=== PATIENT | male | born 1935 | race Caucasian/White ===

== ENCOUNTER 2018-05-15 19:17 | Emergency (ER) | payer MEDICARE, OTHER, SELFPAY ==
[2018-05-15 19:18] VITALS: BP 131/67; PULSE 124; RESP 16; TEMP 36.7; O2SAT 94; BMI 24.3
--- NOTE | 2018-05-15 19:37 | CT_ITS ---
STUDY: CT BRAIN WITHOUT CONTRAST REASON FOR EXAM: Male, 83 years old. Fell and hit left side of the head. No loss of consciousness. Laceration. RADIATION DOSAGE (If Supplied By Facility): CTDIvol = ( 44.99 ) mGy, DLP = ( 829.85 ) mGycm TECHNIQUE: Transaxial CT imaging of the brain was performed without administration of intravenous contrast material. Individualized dose optimization techniques were used for this CT. COMPARISON: None. FINDINGS: Small laceration in the subcutaneous tissues in the left parietal region. There is a small underlying hematoma. Normal calvarium. Normal size ventricles and extra-axial spaces for the patient's age. Normal white matter tracts of the cerebral hemispheres. Normal basal ganglia and thalami. Normal brainstem. Normal cerebellum. There is no intracranial hemorrhage. There are no findings of an acute ischemic infarction. There is mucoperiosteal reaction within the sphenoid and ethmoid sinuses. CT/Brain/Head without Contrast IMPRESSION: 1. No evidence of acute intracranial or calvarial abnormality. 2. Soft tissue hematoma with overlying laceration in the left parietal region. 3. Sinusitis. Electronically Signed: Mustapha Ponce DO at 20:08 EST Tel [phone], Service support ,
--- NOTE | 2018-05-15 19:42 | ED.VISSUMM ---
- ER Visit Summary Date of Service: 05/15/18 Chief Complaint: Head injury History of Present Illness: The patient is a 83 M presents to the emergency department with scalp laceration. The patient states he was drinking today with friends. He was at home. He lost his balance and fell. He struck his head against his grandfather clock. He did not lose consciousness but did suffer a laceration. The patient does not take anticoagulants. He denies headache or visual change. He denies any other systemic symptoms. He states he was able to get the bleeding to stop, but was worried that he was going to need stitches. Physical Examination: Vital signs reviewed General: Well-nourished, well-developed Head: Normocephalic, 5 cm full-thickness laceration on the left frontal scalp. No step-off. Calvarium intact. Eyes: Pupils equal and reactive, extraocular muscles intact Neck, supple, no lymphadenopathy Heart: Regular rate and rhythm Respiratory: No distress, clear bilaterally Abdomen: Soft, nontender, nondistended, no peritoneal signs Back: Nontender Extremities: Nontender, no edema, no cords Skin: Normal color no rash Neuro: Alert and oriented, no focal or lateralizing deficits Test Results: [] Emergency Department Course and Treatment: The patient presents with laceration. He underwent head CT which was unremarkable. The patient is awake and alert. He is a GCS of 15. He has no evidence of intracranial abnormality. His wound was anesthetized and irrigated. It was closed with 6 domingo. He was counseled on wound care and reasons to return. The patient be discharged home. Treatment Plan: [] Disposition: Discharge Impression: 1. 5 cm scalp laceration with repair This note was generated with [employer] dictation software. It may contain incorrect words, spelling, and punctuation that were not noted in review of the chart prior to signing ED Disposition - Plan for ED Patient: Chief Complaint: Head Injury Instructions: ED Laceration Scalp Stitch Or Stap Referrals: Oneil Foote MD [Primary Care Provider] - 10 Day for suture removal
[2018-05-15] MEDS: Diphth,Pertuss(Acell),Tet Vac 0.5 ML Vial IM (20:16)
[2018-05-15] MEDS: Lidocaine/Epi/Tetracaine 50 ML 1 APPLIC TOPICAL (20:16)
[2018-05-15 20:57] VITALS: BP 147/89; PULSE 108; RESP 16; O2SAT 96
--- NOTE | 2018-05-15 21:00 | ED.RN ---
REVIEWED D/C INSTRUCTIONS, FOLLOW UP CARE, AND S/S THAT WOULD WARRANT A RETURN TO THE ED WITH PT. PT SKIN P/W/D, RESP EVEN AND UNLABORED, PT A&O X 3, NO DISTRESS NOTED. PT AMBULATED OUT OF ED, GAIT STEADY.
== END 2018-05-15 21:01 | disposition home or self-care (01) ==
LOC: ED 20:00
PROVIDERS: Emergency Provider Emergency Medicine; Family Provider Family Medicine; PCP Family Medicine
DX: S01.01XA Laceration without foreign body of scalp, initial encounter (principal); R40.2410 Glasgow coma scale score 13-15, unspecified time; W19.XXXA Unspecified fall, initial encounter; Y93.9 Activity, unspecified; Y92.9 Unspecified place or not applicable; I10 Essential (primary) hypertension; E78.00 Pure hypercholesterolemia, unspecified; Z79.899 Other long term (current) drug therapy
CPT/HCPCS: 12002; 70450; 90471; 90715; 99284

== ENCOUNTER 2018-05-16 09:04 | Emergency (ER) | payer MEDICARE, OTHER, SELFPAY ==
[2018-05-15 19:18] VITALS: BMI 24.3
[2018-05-16 09:05] VITALS: BP 137/79; PULSE 117; RESP 16; TEMP 36.7; O2SAT 96; BMI 24.3
--- NOTE | 2018-05-16 09:11 | RAD_ITS ---
STUDY: X-RAY - LEFT ELBOW REASON FOR EXAM: Male, 83 years old. Fall last night, left elbow pain TECHNIQUE: 3 view(s) of the elbow. COMPARISON: None. FINDINGS: There is a transverse fracture of the distal epicondylar humerus with approximately 16 mm of displacement. There is anterior apical angulation. Normal radiocapitellar and ulnotrochlear articulations. Diffuse soft tissue swelling with joint effusion noted. RAD/Elbow min 3 Views IMPRESSION: Moderately displaced distal humeral fracture. Electronically Signed: Chan Abdalla MD at 9:50 EST , Service support ,
[2018-05-16] MEDS: Ibuprofen 600 MG Tablet PO (09:21)
--- NOTE | 2018-05-16 09:49 | NURSING ---
DR EWELINA TIDWELL
--- NOTE | 2018-05-16 10:03 | ED.DCSUM_ITS ---
- ER Visit Summary Date of Service: 05/16/18 Chief Complaint: Elbow pain History of Present Illness: The patient is a 83 M with left elbow pain. The patient had a mechanical fall yesterday and hit his head. He was seen in the ED and had a CT of his brain as well as sutures placed. He woke up this morning with increasing left elbow pain and swelling. Worse with touch and movement. Nothing makes it better. No other associated symptoms or complaints. He does not take blood thinners. Physical Examination: Afebrile and vital signs unremarkable except for a heart rate of 117. Head and neck showed no new trauma. Heart regular. Lungs clear. Left upper extremity is remarkable for pain tenderness and swelling to his left elbow diffusely. He is neurovascular intact distally. Skin is intact. Right upper extremity and lower extremities are atraumatic. Patient is alert and oriented. Test Results: X-rays show a distal humerus fracture with moderate displacement. Emergency Department Course and Treatment: Patient was treated with a posterior long-arm splint, Ortho-Glass. He was placed in a sling. I did check his prescription report and he is not on any opioids. He was given a short course of Percocet. Risks of Percocet such as sedation and fall risk were discussed. Do not drink alcohol on Percocet. Splint precautions were discussed. Keep it clean and dry. Return for pain and numbness. Return for any other complications. I did speak with Dr. Hancock and the patient will follow-up as an outpatient. Treatment Plan: As above Disposition: Discharge Impression: 1. Left distal humerus fracture closed This note was generated with [employer] dictation software. It may contain incorrect words, spelling, and punctuation that were not noted in review of the chart prior to signing ED Disposition - Plan for ED Patient: Chief Complaint: Upper Extremity Injury Referrals: Oneil Foote MD [Primary Care Provider] -
--- NOTE | 2018-05-16 10:03 | ED.DEP ---
ED Disposition - Plan for ED Patient: Chief Complaint: Upper Extremity Injury Instructions: ED Fx Elbow Prescriptions: Oxycodone HCl/Acetaminophen [Percocet 5/325] 1 tab PO Q6H PRN PRN 3 Days #12 tab PRN Reason: Pain Referrals: Jeffery Hancock DO [STAFF PHYSICIAN] -
[2018-05-16 10:53] VITALS: BP 114/83; PULSE 83; RESP 14; O2SAT 95
== END 2018-05-16 10:54 | disposition home or self-care (01) ==
PROVIDERS: Emergency Provider Emergency Medicine; Family Provider Family Medicine; PCP Family Medicine
DX: S42.402A Unspecified fracture of lower end of left humerus, initial encounter for closed fracture (principal); W19.XXXA Unspecified fall, initial encounter; Y93.9 Activity, unspecified; Y92.9 Unspecified place or not applicable; E78.00 Pure hypercholesterolemia, unspecified; Z79.899 Other long term (current) drug therapy
CPT/HCPCS: 29105; 73080; 99283

== ENCOUNTER → 2018-05-22 07:12 | Outpatient (CLI) | payer MEDICARE, OTHER, SELFPAY ==
[2018-05-16 09:05] VITALS: BMI 24.3
--- NOTE | 2018-05-22 07:19 | CT_ITS ---
STUDY: CT LEFT ELBOW WITHOUT CONTRAST REASON FOR EXAM: Male, 83 years old. Distal humeral fracture following a fall. RADIATION DOSAGE (If Supplied By Facility): CTDIvol = ( 24.58 ) mGy, DLP = ( 800.30 ) mGycm TECHNIQUE: Transaxial CT imaging of the elbow was performed. Sagittal and coronal images were reconstructed. Individualized dose optimization techniques were used for this CT. COMPARISON: Comparison is made with prior radiograph dated May 16, 2018. FINDINGS: There is evidence of a comminuted transverse supracondylar fracture of the distal humerus with loss of the normal angle. There is evidence of posterior displacement of the distal fracture fragment. Normal radiocapitellar and ulnotrochlear articulations. Soft tissue swelling. CT/Extremity Upper without Contra IMPRESSION: Comminuted transverse fracture of the distal supracondylar aspect of the humerus with posterior displacement. Soft tissue swelling. Electronically Signed: Chuck Powers MD at 9:25 EST Tel [phone], Service support ,
== END ==
PROVIDERS: Family Provider Family Medicine; PCP Family Medicine; Referring Provider Physician Assistant; Visit Provider Physician Assistant
DX: S42.492A Other displaced fracture of lower end of left humerus, initial encounter for closed fracture (principal)
CPT/HCPCS: 73200

== ENCOUNTER 2021-01-18 03:44 | Emergency (ER) | payer MEDICARE, OTHER, SELFPAY ==
[2021-01-18 03:44] VITALS: BP 176/82; PULSE 88; RESP 16; TEMP 36.8; O2SAT 96; BMI 25.2
--- NOTE | 2021-01-18 03:55 | CT_ITS ---
STUDY: CT CHEST, ABDOMEN T PELVIS WITH CONTRAST REASON FOR EXAM: Male, 85 years old. trauma RADIATION DOSAGE (If Supplied By Facility): CTDIvol = ( 16.997 ) mGy, DLP = ( 1734.23 ) mGycm TECHNIQUE: Transaxial imaging was performed following intravenous administration of IV 100mL [id number]-370. Individualized dose optimization techniques were used for this CT. COMPARISON: No relevant priors. FINDINGS: CHEST The lungs are normal. There is no demonstrated pleural abnormality. Normal heart and pericardium. Normal mediastinum. Normal hilar regions. Normal unenhanced pulmonary arteries. Normal aorta arch and descending thoracic aorta. There is nondisplaced fracture of the left ninth rib. There is no demonstrated abnormality of the visualized upper abdomen. ABDOMEN There is a hiatal hernia measures 7 cm. The visualized portions of the heart are within normal limits. Normal liver. Normal gallbladder and extrahepatic biliary system. Normal spleen. Normal pancreas. Normal bilateral adrenal glands. Bilateral renal cysts, the largest measures 4 cm is in the left kidney. There are bilateral kidney stones the largest measures 8 mm without hydronephrosis. Normal visualized stomach. Normal small intestine. Normal colon. The appendix is visualized and appears normal. Normal abdominal aorta. Normal inferior vena cava. Normal retroperitoneum. Normal abdominal wall. Normal osseous structures. PELVIS Multiple stones in the urinary bladder, the largest measures 6 mm. Normal visualized small intestine. Normal visualized colon. There is no pelvic fluid. There is no pelvic lymphadenopathy or mass lesion. Normal visualized pelvic arteries. Normal abdominal wall. Normal osseous structures. CT/CT Chest, Abd, Pel w/Contrast IMPRESSION: There is nondisplaced fracture of the left ninth rib. There is a hiatal hernia measures 7 cm. Bilateral renal cysts, the largest measures 4 cm is in the left kidney. There are bilateral kidney stones the largest measures 8 mm without hydronephrosis. Multiple stones in the urinary bladder, the largest measures 6 mm. There is no acute traumatic injury in the abdomen or pelvis. Electronically Signed: Emily Pretty MD at 6:07 EDT Tel , Service support ,
--- NOTE | 2021-01-18 03:58 | EDS_ITS ---
HPI History of Present Illness Chief Complaint: Back Informant: patient and family Narrative Narrative: Patient presents by EMS from home for evaluation of left back injury occurring Tuesday. Patient was cutting down a tree when he fell hitting his back on the stump. He states he grazed his head on the tree with an abrasion. States pain in the back is increased worse with movement therefore EMS was contacted. He denies any neck pain. No chest pain. Denies any radicular pain down the legs. Denies history of kidney injury. History of BPH along with hyperlipidemia. Denies any anticoagulation medications. Prior similar symptoms: No PFSH PFSH Medical History Hyperlipidemia Prostate disorder Rotator cuff arthropathy Home Medications alfuzosin [Uroxatral] 10 mg PO DAILY 05/15/18 [History Last Taken Unknown] multivitamin 1 ea PO DAILY 05/15/18 [History Last Taken Unknown] rosuvastatin 10 mg PO DAILY 05/15/18 [History Last Taken Unknown] docusate sodium [Colace] 100 mg PO DAILY #30 cap 01/18/21 [Rx Last Taken Unknown] oxycodone-acetaminophen [Percocet] 1 tab PO Q6H PRN 3 Days #12 tab 01/18/21 [Rx Last Taken Unknown] Allergy/AdvReac Type Severity Reaction Status Date / Time No Known Allergies Allergy Verified 01/18/21 03:47 Social History Smoking Status: Never smoker ROS ROS ED Constitutional Constitutional ED: Denies chills, fever(s) or sweats Eyes Eyes: Denies change in vision ENT ENT ED: Denies dysphagia or sore throat Cardiovascular Cardiovascular: Denies chest pain, leg edema, palpitations or racing heartbeat Respiratory/Chest Respiratory/Chest: Denies cough, dyspnea or dyspnea on exertion Gastrointestinal Gastrointestinal: Denies abdominal pain, diarrhea, nausea or vomiting Genitourinary Genitourinary ED: Denies dysuria, hematuria or urinary frequency Musculoskeletal Musculoskeletal: Reports back pain; Denies extremity pain or neck pain Integumentary Denies rash or wounds Neurologic Neurologic: Denies headache(s), paresthesias or weakness EXAM Physical Exam Const Vital Signs: 01/18/21 03:44 01/18/21 04:15 Temperature 98.2 F Temperature Source Oral Pulse Rate 88 Respiratory Rate 16 Blood Pressure 176/82 H 155/85 H Blood Pressure Mean 113 108 Pulse Ox 96 93 Oxygen Delivery Method Room Air Positive well nourished and well developed Constitutional Narrative: GCS 15. General Appearance ED: well developed and NAD HEENT Reports moist mucous membranes HEENT Narrative: Abrasion noted mid forehead, no active bleeding. No hemotympanum. normocephalic Eyes PERRL, EOMs intact bilaterally and conjunctivae normal General Eye ED: Yes normal appearance of both eyes Neck no lymphadenopathy and supple General: Negative for tenderness Chest Wall Chest: Negative for tenderness Resp normal respiratory effort and normal air movement Effort and Inspection: symmetric chest movement; Negative for respiratory distress Cardio regular rate, regular rhythm and no murmurs Peripheral Pulses: pulses 2+ throughout GI normal to inspection, nondistended, normoactive bowel sounds and non-tender Palpation: Negative for guarding or rebound tenderness present Back/Spine no CVA tenderness and no thoracic nor lumbar tenderness Back/Spine Narrative: No midline tenderness, there is vertigo ecchymosis along the left lower lateral rib bricklayer tender to palpation. No crepitus. Extremity normal to inspection General Extremety ED: Negative for edema or tenderness General Extremity: Negative for edema Neuro oriented x3 and no sensory deficits noted Sensorium / Orientation: awake and alert Skin no rashes or lesions noted and no wounds MDM MDM MDM Narrative Medical decision making narrative: Patient traumatic injury 2 days ago there is contusion along the ribs left side stenting to the flank area. Symmetric breath sounds. Trauma scans obtained to rule out any intrathoracic or retroperitoneal injuries from the fall. He was treated with fentanyl for pain control he is able to sit himself up. Symptoms were improving. CT scan results noted nondisplaced fracture left ninth rib, bilateral renal cysts and hiatal hernia. Patient symptoms controlled. Set a spirometer for home use. Short prescription for pain medicines with stool softeners sent to pharmacy. Patient will follow with PCP. All questions answered. Lab Data Attestation: I reviewed the patient's lab results. Labs: Laboratory Results - last 24 hr 01/18/21 01/18/21 04:10 04:10 WBC 5.6 RBC 4.65 Hgb 15.0 Hct 45.8 MCV 98.5 H MCH 32.3 H MCHC 32.8 RDW Std Deviation 47.2 H RDW Coeff of Tia 13.0 Plt Count 136 L MPV 9.6 Immature Gran % (Auto) 0.400 Neut % (Auto) 63.3 Lymph % (Auto) 19.9 [place] % (Auto) 12.3 H Eos % (Auto) 3.6 Baso % (Auto) 0.5 Absolute Neuts (auto) 3.6 Absolute Lymphs (auto) 1.12 Nucleated RBC % 0 Sodium 138 Potassium 4.2 Chloride 106 Carbon Dioxide 28.0 Anion Gap 4 L BUN 18 Creatinine 1.03 Estim Creat Clear Calc 63.18 Est GFR (MDRD) Af Amer 89 Est GFR (MDRD) Non-Af 73 BUN/Creatinine Ratio 17.5 Glucose 120 H Calcium 8.9 Radiography Diagnostic Testing: Radiology Impression Chest/Abdomen/Pelvis CT 01/18/21 03:55 IMPRESSION: There is nondisplaced fracture of the left ninth rib. There is a hiatal hernia measures 7 cm. Bilateral renal cysts, the largest measures 4 cm is in the left kidney. There are bilateral kidney stones the largest measures 8 mm without hydronephrosis. Multiple stones in the urinary bladder, the largest measures 6 mm. There is no acute traumatic injury in the abdomen or pelvis. Electronically Signed: Emily Pretty MD at 6:07 EDT Tel , Service support , Discharge Plan Triage Chief Complaint: Back ED Provider: Andrew Weller Dx/Rx/DC Orders Clinical Impression: Left rib fracture, Fall, Hernia, hiatal, Bilateral renal cysts Instructions: ED Rib Fracture, ED Hiatal Hernia Prescriptions: New oxycodone-acetaminophen [Percocet] 5-325 mg tablet 1 tab PO Q6H PRN (Reason: pain) 3 Days Qty: 12 RF: 0 docusate sodium [Colace] 100 mg capsule 100 mg PO DAILY Qty: 30 RF: 0 No Action multivitamin 1 EACH tablet 1 ea PO DAILY RF: 0 rosuvastatin 10 MG tablet 10 mg PO DAILY RF: 0 alfuzosin [Uroxatral] 10 MG tablet extended release 24 hr 10 mg PO DAILY RF: 0 Primary Care Provider: Oneil Foote Referrals: Oneil Foote MD [Primary Care Provider] - 3-5 Days Activity Restrictions/Additional Instructions: Nondisplaced left ninth rib fracture. Use incentive spirometer every 2 hours while awake. Pain medicines as needed. Stool softeners while taking pain medicines. Incidental findings on CT of a hiatal hernia of 7 cm, bilateral renal cysts, right nephrolithiasis. Disposition Disposition: Home, Self Care
[2021-01-18] MEDS: fentaNYL 100 MCG/2 ML Ampul 25 MCG IV (04:07)
[2021-01-18 04:15] VITALS: BP 155/85; O2SAT 93
[2021-01-18 04:21] LABS: Absolute Lymphocyte Count 1.12 X10^3/uL (0.83-4.51); Absolute Neutrophil Count 3.6 X10^3/uL (2.0-7.7); Basophil# 0.03 X10^3/uL; Basophil% 0.5 % (0-1); Eosinophils% 3.6 % (0-5); Hematocrit 45.8 % (40-54); Lymphocyte # 1.12 X10^3/ul (0.83-4.51); Lymphocyte % 19.9 % (19-41); Mean Corp Hgb Conc 32.8 g/dL (32-36); Mean Corpuscular Hgb 32.3 pg (27.0-32.0); Mean Corpuscular Volume 98.5 fL (80-94); Mean Platelet Vol. 9.6 fl (6.2-12.0); Monocyte# 0.69 X10^3/uL; Monocyte% 12.3 % (0-10); NRBC Flagged by Analyzer 0 % (0-5); Neutrophil # 3.56 X10^3/uL (2.7-7.7); Neutrophil % 63.3 % (47-70); Platelet Count 136 K/mm3 (150-450); RBC Distribution Width SD 47.2 fl (35.1-43.9); Red Blood Count 4.65 M/mm3 (4.6-6.2); White Blood Count 5.6 K/mm3 (4.4-11.0)
[2021-01-18 04:35] LABS: Anion Gap 4 (5-15); BUN 18 mg/dL (7-18); BUN/Creat Ratio 17.5 RATIO (10-20); Calcium,Total 8.9 mg/dL (8.5-10.1); Chloride 106 mmol/L (98-107); Creatinine, Serum 1.03 mg/dL (0.70-1.30); EST Glomerular Filtration Rate 73 mL/min (>60); Est Glom Filt Rate - Afr Amer 89 mL/min (>60); Estimated Creatinine Clearance 63.18 ml/min; Glucose 120 mg/dL (74-106); Potassium 4.2 mmol/L (3.5-5.1); Sodium Level 138 mmol/L (136-145)
[2021-01-18 06:30] VITALS: BP 168/57; PULSE 78; RESP 18; O2SAT 94
== END 2021-01-18 06:31 | disposition home or self-care (01) ==
PROVIDERS: Emergency Provider Emergency Medicine; PCP Family Medicine
DX: S22.32XA Fracture of one rib, left side, initial encounter for closed fracture (principal); S00.81XA Abrasion of other part of head, initial encounter; W19.XXXA Unspecified fall, initial encounter; Y93.9 Activity, unspecified; Y92.9 Unspecified place or not applicable; K44.9 Diaphragmatic hernia without obstruction or gangrene; N28.1 Cyst of kidney, acquired; E78.5 Hyperlipidemia, unspecified; N40.0 Benign prostatic hyperplasia without lower urinary tract symptoms; Z79.899 Other long term (current) drug therapy
CPT/HCPCS: 71260; 74177; 80048; 85025; 96361; 96374; 99285; J7030; Q9967

== ENCOUNTER 2023-06-23 11:03 | Inpatient (IN) | payer MEDICARE, OTHER, SELFPAY ==
[2023-06-23 11:04] VITALS: TEMP 37.7
[2023-06-23 11:09] VITALS: BP 128/68; PULSE 100; RESP 18; O2SAT 96
--- NOTE | 2023-06-23 11:27 | ED.RN ---
spoke with Butch RIVERA, not calling stroke alert at this time.
[2023-06-23 11:29] LABS: Bedside Glucose 164 mg/dL (74-106)
--- NOTE | 2023-06-23 11:39 | RAD_ITS ---
STUDY: X-RAY CHEST REASON FOR EXAM: Male, 88 years old. Cough TECHNIQUE: Single AP portable view of the chest. COMPARISON: None. FINDINGS: EKG electrodes are seen. Mild degree of increased markings at the left lung base suggestive of a atelectasis and/or scarring. There is no demonstrated pleural abnormality. Normal size heart. Normal mediastinum and salena. Normal visualized pulmonary arteries. Normal visualized aortic arch and descending thoracic aorta. There are diffuse degenerative changes of the visualized thoracic spine. Screw fixation in the proximal right humerus. There is no demonstrated abnormality of the visualized soft tissue structures of the upper abdomen. RAD/Chest 1 View (Portable) IMPRESSION: Increased markings at the left lung base suggestive of atelectasis and/or scarring. Electronically Signed: Chuck Powers MD at 12:21 EST ,
--- NOTE | 2023-06-23 11:41 | EDS_ITS ---
HPI <KAILEE Alves - Last Filed: 06/23/23 13:23> History of Present Illness Chief Complaint: Weakness Narrative Narrative: Patient is an 88-year-old male with history of BPH, hyperlipidemia who lives at home with his daughter who usually gets around by walker presenting to the emergency department for altered mental status, weakness and frequent falls. Per the daughter, the patient went to bed around 9 PM acting appropriate. Patient had a fall out of bed at 3 in the morning, the daughter had difficulty getting him off the floor however they were able to get him back in the bed. Patient had another fall out of bed again, and this time they could not get him to the bed. Patient was more confused, slurring his words, and they are here for evaluation. Patient denies any specific pain at this time. PFSH <KAILEE Alves - Last Filed: 06/23/23 13:23> [facility] Medical History Hyperlipidemia Prostate disorder Rotator cuff arthropathy Home Medications alfuzosin 10 mg tablet,extended release 24 hr (Uroxatral) 10 mg PO DAILY PROSTATE 05/15/18 [History Last Taken 06/22/23] multivitamin 1 ea PO DAILY HEALTH MAINTENANCE 05/15/18 [History Last Taken 06/22/23] rosuvastatin 10 mg tablet 10 mg PO DAILY CHOLESTEROL 05/15/18 [History Last Taken 06/22/23] docusate sodium 100 mg capsule (Colace) 100 mg PO DAILY CONSTIPATION #30 caps 01/18/21 [Rx Last Taken 06/22/23] Allergy/AdvReac Type Severity Reaction Status Date / Time No Known Allergies Allergy Verified 06/23/23 11:04 Social History Smoking Status: Never smoker ROS <KAILEE Alves - Last Filed: 06/23/23 13:23> ROS ED ROS Narrative Constitutional: Negative for fever, chills, weight loss. Positive for weakness Eyes: Negative for vision loss, vision change, double vision ENT: Negative for any sore throat, ear pain, congestion Cardiovascular: Negative for any chest pain, tightness, palpitations Respiratory: Negative for any cough, sputum production, hemoptysis, dyspnea, dyspnea on exertion, orthopnea Gastrointestinal: Negative for any abdominal pain, nausea, vomiting, diarrhea, constipation, blood in stool, blood in vomit : Negative for any urinary frequency, dysuria, retention, blood in urine Muscle skeletal: Negative for any myalgias, arthralgias, neck pain, back pain Neurological: Negative for any headache, syncope, paresthesias, dizziness. Positive for feeling weakness, slurred speech, altered mental status Skin: Negative for any rashes, lumps, itching, abrasions, lacerations Psychiatric: Negative for any depression, anxiety, stress, suicidal ideation, homicidal ideation Hematologic: Negative for any easy bruising, excessive bruising, easy bleeding Allergies: Negative for any eczema, hives, rash EXAM <KAILEE Alves - Last Filed: 06/23/23 13:23> Physical Exam Narrative Exam Narrative: Vital signs reviewed. Patient does look disheveled, patient does have stool on his legs. Patient is slightly cachectic appearing. HEET: Head normocephalic atraumatic, TMs clear bilaterally. Posterior pharynx is clear, dry mucous membranes. Nares clear bilaterally. Neck: Supple with no lymphadenopathy or tenderness. No signs of meningismus. Cardiac: Regular rate and rhythm no murmurs gallops or rubs, equal peripheral pulses bilaterally. Respiratory: Lungs clear to auscultation bilaterally. No chest tenderness. Abdomen: Soft, nontender, nondistended. No abdominal bruit or pulsatile masses. No hepatosplenomegaly Extremities: No peripheral edema, no signs of gross trauma or deformity. Active full range of motion of all extremities. Neuro: Cranial nerves II through XII intact, no focal neurological deficits. NIH stroke scale 2, patient has no upper or lower extremity weakness. Patient has no sensational deficits. Patient is slightly confused, also has slurred speech. Last known well was 9 PM. Skin: Clean dry and intact with no rash, purpura, petechiae, vesicles or pustules. Skin is dirty, lower legs have stool that is dried on his lower legs. Backs/flank: No CVA tenderness, no midline spinal tenderness, no deformity. Psych: Normal mood and affect. No SI, HI or acute psychosis. Const Vital Signs: 06/23/23 11:04 06/23/23 11:09 06/23/23 11:09 Temperature 99.9 F H Temperature Source Oral Pulse Rate 100 Respiratory Rate 18 Respiratory Effort Normal Non-Labored Respiratory Pattern Normal Blood Pressure 128/68 H Blood Pressure Mean 88 Pulse Ox 96 Oxygen Delivery Method Room Air Room Air 06/23/23 13:22 Temperature Temperature Source Pulse Rate 94 Respiratory Rate 22 H Respiratory Effort Respiratory Pattern Blood Pressure 135/59 H Blood Pressure Mean 84 Pulse Ox 96 Oxygen Delivery Method Positive cachectic and unkempt General Appearance ED: unkempt and cachectic Nutritional Appearance: cachectic Psych Appearance: unkempt <Dr. Gabo Benavides MD - Last Filed: 06/23/23 13:33> Physical Exam Const Vital Signs: 06/23/23 11:04 06/23/23 11:09 06/23/23 11:09 Temperature 99.9 F H Temperature Source Oral Pulse Rate 100 Respiratory Rate 18 Respiratory Effort Normal Non-Labored Respiratory Pattern Normal Blood Pressure 128/68 H Blood Pressure Mean 88 Pulse Ox 96 Oxygen Delivery Method Room Air Room Air 06/23/23 13:22 Temperature Temperature Source Pulse Rate 94 Respiratory Rate 22 H Respiratory Effort Respiratory Pattern Blood Pressure 135/59 H Blood Pressure Mean 84 Pulse Ox 96 Oxygen Delivery Method MDM <KAILEE Alves - Last Filed: 06/23/23 13:23> [facility] Lab Data Labs: Laboratory Results - last 24 hr 06/23/23 06/23/23 06/23/23 11:12 11:15 11:45 WBC 15.4 H RBC 4.64 Hgb 15.2 Hct 45.1 MCV 97.2 H MCH 32.8 H MCHC 33.7 RDW Std Deviation 46.9 H RDW Coeff of Tia 13.1 Plt Count 143 L MPV 10.3 Immature Gran % (Auto) 0.600 Neut % (Auto) 86.9 H Lymph % (Auto) 3.7 L [place] % (Auto) 8.7 Eos % (Auto) 0.0 Baso % (Auto) 0.1 Absolute Neuts (auto) 13.4 H Absolute Lymphs (auto) 0.57 L Nucleated RBC % 0 PT 33.9 H INR 3.3 APTT 28.0 Sodium 139 Potassium 4.1 Chloride 107 Carbon Dioxide 29.0 Anion Gap 3 L BUN 26 H Creatinine 1.41 H Est GFR (MDRD) Af Amer 61 Est GFR (MDRD) Non-Af 51 L BUN/Creatinine Ratio 18.4 Glucose 164 H Lactic Acid 1.5 Calcium 9.2 Total Bilirubin 1.20 H AST 22 ALT 27 Alkaline Phosphatase 89 Total Protein 7.3 Albumin 3.7 Globulin 3.6 Albumin/Globulin Ratio 1.0 Urine Color Urine Clarity Urine pH Ur Specific [place] Urine Protein Urine Glucose (UA) Urine Ketones Urine Occult Blood Urine Nitrite Urine Bilirubin Urine Urobilinogen Ur Leukocyte Esterase Urine RBC Urine WBC Ur Squamous Epith Cells Urine Bacteria Urine Mucus POC Glucose 164 H 06/23/23 12:10 WBC RBC Hgb Hct MCV MCH MCHC RDW Std Deviation RDW Coeff of Tia Plt Count MPV Immature Gran % (Auto) Neut % (Auto) Lymph % (Auto) [place] % (Auto) Eos % (Auto) Baso % (Auto) Absolute Neuts (auto) Absolute Lymphs (auto) Nucleated RBC % PT INR APTT Sodium Potassium Chloride Carbon Dioxide Anion Gap BUN Creatinine Est GFR (MDRD) Af Amer Est GFR (MDRD) Non-Af BUN/Creatinine Ratio Glucose Lactic Acid Calcium Total Bilirubin AST ALT Alkaline Phosphatase Total Protein Albumin Globulin Albumin/Globulin Ratio Urine Color Yellow Urine Clarity Sl. Cloudy Urine pH 6.0 Ur Specific [place] 1.015 Urine Protein 100 H Urine Glucose (UA) Normal Urine Ketones 15 H Urine Occult Blood 150 H Urine Nitrite Positive H Urine Bilirubin Negative Urine Urobilinogen Normal Ur Leukocyte Esterase 500 H Urine RBC 10-25 SEEN Urine WBC 25-50 SEEN Ur Squamous Epith Cells 0-5 SEEN Urine Bacteria 1+ Urine Mucus 0 SEEN POC Glucose Radiography Diagnostic Testing: Clinical Impression(s) from Imaging Studies Chest X-Ray 06/23/23 11:39 IMPRESSION: Increased markings at the left lung base suggestive of atelectasis and/or scarring. Electronically Signed: Chuck Powers MD at 12:21 EST , Brain CT 06/23/23 11:52 IMPRESSION: Chronic involutional changes of the brain. Electronically Signed: Chuck Powers MD at 12:10 EST , EKG EKG shows sinus rhythm with PACs: Attestation: I personally reviewed and interpreted this EKG as follows: Comments: Sinus rhythm with PACs, 88 bpm, KS interval 168 ms, QRS duration 92 ms, no acute ST elevation, no acute infarct noted. Treatment and Re-Evaluation :: Patient is alert and oriented x 2, patient does have some slurred speech, per the daughter, the patient is much more weak than usual. Patient had 2-3 falls in the last 12 hours. Per the daughter, the patient is more altered. Patient also has a low-grade temperature. Differential diagnosis includes UTI, bacterial infection, viral infection, CVA, TIA. Patient will receive a CT of the brain, chest x-ray, septic workup including 2 sets of blood cultures. Urinalysis will also be completed. Patient received IV fluids, patient has no specific pain from the falls. Patient be reevaluated. Patient's chest x-ray to read by the ER physician shows some atelectasis or scarring to the left lower lung base. Patient's laboratory values showed a leukocytosis with a white blood count of 15.4, PT/INR showed elevated PT at 33.9, INR 3.3. Patient's creatinine is slightly elevated at 1.4, patient baseline is 1.0. Glucose is 164, total bilirubin is 1.20. Patient's urinalysis was consistent with infection with 1+ bacteria 25-50 white blood cells, 500 leuk leukocytes, positive nitrites. This to be sent for culture, patient restarted IV Rocephin, was given IV fluids. CT scan the brain was negative. Currently waiting on COVID, influenza, RSV. At this time, secondary to the weakness, altered mental status, multiple falls, I do believe the patient will need to be admitted to the hospital. I spoke with the patient, he verbally understands, will speak with the patient's daughter. Patient stable. Spoke with hospitalist. Patient be admitted to [facility], patient received IV Rocephin. Urine culture sent <Dr. Gabo Benavides MD - Last Filed: 06/23/23 13:33> [facility] Lab Data Labs: Laboratory Results - last 24 hr 06/23/23 06/23/23 06/23/23 11:12 11:15 11:45 WBC 15.4 H RBC 4.64 Hgb 15.2 Hct 45.1 MCV 97.2 H MCH 32.8 H MCHC 33.7 RDW Std Deviation 46.9 H RDW Coeff of Tia 13.1 Plt Count 143 L MPV 10.3 Immature Gran % (Auto) 0.600 Neut % (Auto) 86.9 H Lymph % (Auto) 3.7 L [place] % (Auto) 8.7 Eos % (Auto) 0.0 Baso % (Auto) 0.1 Absolute Neuts (auto) 13.4 H Absolute Lymphs (auto) 0.57 L Nucleated RBC % 0 PT 33.9 H INR 3.3 APTT 28.0 Sodium 139 Potassium 4.1 Chloride 107 Carbon Dioxide 29.0 Anion Gap 3 L BUN 26 H Creatinine 1.41 H Est GFR (MDRD) Af Amer 61 Est GFR (MDRD) Non-Af 51 L BUN/Creatinine Ratio 18.4 Glucose 164 H Lactic Acid 1.5 Calcium 9.2 Total Bilirubin 1.20 H AST 22 ALT 27 Alkaline Phosphatase 89 Total Protein 7.3 Albumin 3.7 Globulin 3.6 Albumin/Globulin Ratio 1.0 Urine Color Urine Clarity Urine pH Ur Specific [place] Urine Protein Urine Glucose (UA) Urine Ketones Urine Occult Blood Urine Nitrite Urine Bilirubin Urine Urobilinogen Ur Leukocyte Esterase Urine RBC Urine WBC Ur Squamous Epith Cells Urine Bacteria Urine Mucus POC Glucose 164 H 06/23/23 12:10 WBC RBC Hgb Hct MCV MCH MCHC RDW Std Deviation RDW Coeff of Tia Plt Count MPV Immature Gran % (Auto) Neut % (Auto) Lymph % (Auto) [place] % (Auto) Eos % (Auto) Baso % (Auto) Absolute Neuts (auto) Absolute Lymphs (auto) Nucleated RBC % PT INR APTT Sodium Potassium Chloride Carbon Dioxide Anion Gap BUN Creatinine Est GFR (MDRD) Af Amer Est GFR (MDRD) Non-Af BUN/Creatinine Ratio Glucose Lactic Acid Calcium Total Bilirubin AST ALT Alkaline Phosphatase Total Protein Albumin Globulin Albumin/Globulin Ratio Urine Color Yellow Urine Clarity Sl. Cloudy Urine pH 6.0 Ur Specific [place] 1.015 Urine Protein 100 H Urine Glucose (UA) Normal Urine Ketones 15 H Urine Occult Blood 150 H Urine Nitrite Positive H Urine Bilirubin Negative Urine Urobilinogen Normal Ur Leukocyte Esterase 500 H Urine RBC 10-25 SEEN Urine WBC 25-50 SEEN Ur Squamous Epith Cells 0-5 SEEN Urine Bacteria 1+ Urine Mucus 0 SEEN POC Glucose Radiography Diagnostic Testing: Clinical Impression(s) from Imaging Studies Chest X-Ray 06/23/23 11:39 IMPRESSION: Increased markings at the left lung base suggestive of atelectasis and/or scarring. Electronically Signed: Chuck Powers MD at 12:21 EST , Brain CT 06/23/23 11:52 IMPRESSION: Chronic involutional changes of the brain. Electronically Signed: Chuck Powers MD at 12:10 EST , Treatment and Re-Evaluation Comments:: I have personally performed a face to face assessment of the patient and have reviewed the JUAN PABLO Note. I performed a substantive portion of the visit including all aspects of the following. My hayes findings include: History is patient woke up at 345 this morning when confused and generally weak. Was okay last night. other than general weakness and slurring speech a little, denies other symptoms. Exam: Nonfocal neurologic exam, strength in arms is better than strength in the legs but everything is symmetric. [id number] and [id number] bilaterally normal. No facial asymmetry. No aphasia, slurring of his speech is mild. No sensory deficits. NIHSS 1 due to dysarthria only. Otherwise exam benign. He is alert and oriented but not to date/month. Medical Decison Making: This is not suspected to be an acute stroke. He is a low-grade temperature and we suspect this is acute delirium/encephalopathy due to an infection. CT of the head was obtained as well due to his mild confusion. This was negative, reviewed the images and the report which I agree with. The rest of the workup basically shows a urinary tract infection which we will admit him for and start treatment. Other additions or changes: [None] Discharge Plan Dx/Rx/DC Orders Clinical Impression: Acute renal insufficiency, Frequent falls, Acute metabolic encephalopathy, Acute UTI Disposition Disposition: Acute Care Hospital [facility]
[2023-06-23] MEDS: 0.9% Normal Saline (1000mL) 1,000 ML 999 ML IV (11:48)
[2023-06-23] MEDS: Acetaminophen 500 MG Tablet 1000 MG PO (11:50)
--- NOTE | 2023-06-23 11:52 | CT_ITS ---
STUDY: CT BRAIN WITHOUT CONTRAST REASON FOR EXAM: Male, 88 years old. Altered Mental status RADIATION DOSAGE (If Supplied By Facility): CTDIvol = ( 44.99 ) mGy, DLP = ( 880.47 ) mGycm TECHNIQUE: Transaxial CT imaging of the brain was performed without administration of intravenous contrast material. Individualized dose optimization techniques were used for this CT. COMPARISON: Comparison is made with prior study dated May 15, 2018. FINDINGS: Normal soft tissue structures. Normal calvarium. There is mild cerebral atrophy with widening of the extra-axial spaces and ventricular dilatation. There are areas of decreased attenuation within the white matter tracts of the supratentorial brain, consistent with microvascular disease changes. Normal basal ganglia and thalami. Normal brainstem. Normal cerebellum. There is no intracranial hemorrhage. There are no findings of an acute ischemic infarction. Normal visualized paranasal sinuses. CT/Brain/Head without Contrast IMPRESSION: Chronic involutional changes of the brain. Electronically Signed: Chuck Powers MD at 12:10 EST ,
[2023-06-23 12:08] LABS: Absolute Lymphocyte Count 0.57 X10^3/uL (0.83-4.51); Absolute Neutrophil Count 13.4 X10^3/uL (2.0-7.7); Basophil# 0.02 X10^3/uL; Basophil% 0.1 % (0-1); Hematocrit 45.1 % (40-54); Hemoglobin 15.2 g/dL (13.0-16.5); Lymphocyte # 0.57 X10^3/ul (0.83-4.51); Lymphocyte % 3.7 % (19-41); Mean Corp Hgb Conc 33.7 g/dL (32-36); Mean Corpuscular Hgb 32.8 pg (27.0-32.0); Mean Corpuscular Volume 97.2 fL (80-94); Mean Platelet Vol. 10.3 fl (6.2-12.0); Monocyte# 1.35 X10^3/uL; Monocyte% 8.7 % (0-10); NRBC Flagged by Analyzer 0 % (0-5); Neutrophil # 13.39 X10^3/uL (2.7-7.7); Neutrophil % 86.9 % (47-70); POSITIVE DIFFERENTIAL YES; Platelet Count 143 K/mm3 (150-450); RBC Distribution Width CV 13.1 % (11.6-14.6); RBC Distribution Width SD 46.9 fl (35.1-43.9); Red Blood Count 4.64 M/mm3 (4.6-6.2); White Blood Count 15.4 K/mm3 (4.4-11.0)
[2023-06-23 12:19] LABS: Mucous, Urine 0 SEEN /hpf (<or=2+)
[2023-06-23 12:19] LABS: International Normalized Ratio 3.3; Prothrombin Time (Protime)PT. 33.9 SECONDS (11.7-14.9)
[2023-06-23 12:20] LABS: Lactic Acid 1.5 mmol/L (0.4-1.9)
[2023-06-23 12:35] LABS: AST(SGOT) 22 U/L (15-37); Alanine Aminotransfer ALT/SGPT 27 U/L (16-61); Albumin, Serum 3.7 g/dL (3.2-5.0); Alkaline Phosphatase 89 U/L (45-117); Anion Gap 3 (5-15); BUN 26 mg/dL (7-18); BUN/Creat Ratio 18.4 RATIO (10-20); Calcium,Total 9.2 mg/dL (8.5-10.1); Chloride 107 mmol/L (98-107); Creatinine, Serum 1.41 mg/dL (0.70-1.30); EST Glomerular Filtration Rate 51 mL/min (>60); Est Glom Filt Rate - Afr Amer 61 mL/min (>60); Globulin 3.6 g/dL (2.2-4.2); Glucose 164 mg/dL (74-106); Potassium 4.1 mmol/L (3.5-5.1); Protein, Total 7.3 g/dL (6.4-8.2); Sodium Level 139 mmol/L (136-145)
[2023-06-23 12:52] LABS: Color, Urine Yellow (Yellow); Glucose, Dipstick Normal (Normal); Ketone-Dipstick 15 mg/dl (Negative); Leukocyte Esterase-Dipstick 500 /ul (Negative); Nitrite-Dipstick Positive (Negative); Occult Blood-Urine 150 /ul (Negative); Protein-Dipstick 100 mg/dl (Negative); Specific Gravity, Urine 1.015 (1.002-1.030); Urine Bilirubin Dipstick Negative (Negative); Urine Clarity Sl. Cloudy (Clear); Urine Urobilinogen Normal (Normal)
[2023-06-23 13:00] LABS: Bacteria 1+ /hpf (None Seen); Red Blood Cells-Urine 10-25 SEEN /hpf (0-5); Squamous Epithelial Cells - UA 0-5 SEEN /hpf (0-5); White Blood Cells 25-50 SEEN /hpf (0-5)
[2023-06-23 13:22] VITALS: BP 135/59; PULSE 94; RESP 22; O2SAT 96
[2023-06-23 13:23] VITALS: BP 120/55; PULSE 103; RESP 22; TEMP 37.2; O2SAT 96
[2023-06-23] MEDS: Ceftriaxone 1 GM/50 ML BAG IV (13:35)
--- NOTE | 2023-06-23 13:35 | PCM.HP.STD ---
HPI - General General Date of Admission: 06/23/23 Date of Service: 06/23/23 Chief Complaint: AMS and falls HPI Narrative ALYSSA ALLAN, is a 88-year-old male with history of BPH and hyperlipidemia presented to [facility] ED 06/23/2023 due to altered mental status, weakness, and frequent falls. Patient lives at home with daughter and per daughter patient went to bed around 9 PM acting appropriate but had a fall out of bed at 3:00 this morning and daughter had difficulty getting him off the floor. He had another fall out of bed and that time they could not get him back, was more confused and slurring his words so he was brought to the ED. In the ED patient with white blood cell count 15.4 and UA suggestive of UTI. Given his weakness and confusion hospitalist contacted for admission. Patient evaluated with daughter at bedside and they report he was in his usual health until 3 AM when he had a fall and he was so weak he had difficulty helping his daughter get him back into bed and after second fall he was unable to help at all. Patient still not back to baseline though is a little bit stronger after interventions in ED. Daughter also reports he does have the problem where he coughs when he eats and sometimes continues to cough after, denies any shortness of breath. Does report some urinary frequency but no dysuria, no diarrhea. Daughter and patient deny any focal pain complaints or any specific areas the patient fell on that are painful [facility] Medical History Hyperlipidemia Prostate disorder Rotator cuff arthropathy Home Medications alfuzosin 10 mg tablet,extended release 24 hr (Uroxatral) 10 mg PO DAILY PROSTATE 05/15/18 [History Last Taken 06/22/23] multivitamin 1 ea PO DAILY HEALTH MAINTENANCE 05/15/18 [History Last Taken 06/22/23] rosuvastatin 10 mg tablet 10 mg PO DAILY CHOLESTEROL 05/15/18 [History Last Taken 06/22/23] docusate sodium 100 mg capsule (Colace) 100 mg PO DAILY CONSTIPATION #30 caps 01/18/21 [Rx Last Taken 06/22/23] Allergy/AdvReac Type Severity Reaction Status Date / Time No Known Allergies Allergy Verified 06/23/23 11:04 Social History Smoking Status: Never smoker ROS ROS Narrative General: Denies fever, has been feeling like his fingertips and toes are cold HENT: Denies headache, denies stuffy nose, denies sore throat EYES: Denies changes in vision Resp: Little bit of cough with eating and after, denies shortness of breath Cardiac: Denies chest pain GI: Denies abdominal pain, denies changes in bowel, denies nausea/vomiting : Some urinary frequency Extremity: Denies swelling MSK: Generalized weakness Neuro: Denies any numbness/tingling Heme: Has some bruising from falls Skin: Denies rashes Psychiatric: No complaints voiced Vital Signs Vital Signs Vital Signs: 06/23/23 11:04 06/23/23 11:09 06/23/23 11:09 Temperature 99.9 F H Temperature Source Oral Pulse Rate 100 Respiratory Rate 18 Respiratory Effort Normal Non-Labored Respiratory Pattern Normal Blood Pressure 128/68 H Blood Pressure Mean 88 Pulse Ox 96 Oxygen Delivery Method Room Air Room Air 06/23/23 13:22 Temperature Temperature Source Pulse Rate 94 Respiratory Rate 22 H Respiratory Effort Respiratory Pattern Blood Pressure 135/59 H Blood Pressure Mean 84 Pulse Ox 96 Oxygen Delivery Method Physical Exam Narrative General: Alert, no apparent distress HEENT: Atraumatic, normocephalic Eyes: Anicteric, normal conjunctiva, extraocular movements grossly intact Neck: Supple Respiratory: Clear to auscultation bilaterally, normal respiratory effort Cardiovascular: Regular rate and rhythm GI: Soft, nontender, nondistended Extremities: No edema Musculoskeletal: Moving all extremities Neuro: No overt focal neurological deficits Skin: Has some erythema and superficial abrasions on knees with no point tenderness or pain on exam Psych: Cooperative Results Lab / Micro Data 06/23/23 11:15 06/23/23 11:15 Labs: Laboratory Results - last 24 hr 06/23/23 11:12: POC Glucose 164 H 06/23/23 11:15: WBC 15.4 H, RBC 4.64, Hgb 15.2, Hct 45.1, MCV 97.2 H, MCH 32.8 H, MCHC 33.7, RDW Std Deviation 46.9 H, RDW Coeff of Tia 13.1, Plt Count 143 L, MPV 10.3, Immature Gran % (Auto) 0.600, Neut % (Auto) 86.9 H, Lymph % (Auto) 3.7 L, [place] % (Auto) 8.7, Eos % (Auto) 0.0, Baso % (Auto) 0.1, Absolute Neuts (auto) 13.4 H, Absolute Lymphs (auto) 0.57 L, Nucleated RBC % 0, PT 33.9 H, INR 3.3, APTT 28.0, Sodium 139, Potassium 4.1, Chloride 107, Carbon Dioxide 29.0, Anion Gap 3 L, BUN 26 H, Creatinine 1.41 H, Est GFR (MDRD) Af Amer 61, Est GFR (MDRD) Non-Af 51 L, BUN/Creatinine Ratio 18.4, Glucose 164 H, Calcium 9.2, Total Bilirubin 1.20 H, AST 22, ALT 27, Alkaline Phosphatase 89, Total Protein 7.3, Albumin 3.7, Globulin 3.6, Albumin/Globulin Ratio 1.0 06/23/23 11:45: Lactic Acid 1.5 06/23/23 12:10: Urine Color Yellow, Urine Clarity Sl. Cloudy, Urine pH 6.0, Ur Specific [place] 1.015, Urine Protein 100 H, Urine Glucose (UA) Normal, Urine Ketones 15 H, Urine Occult Blood 150 H, Urine Nitrite Positive H, Urine Bilirubin Negative, Urine Urobilinogen Normal, Ur Leukocyte Esterase 500 H, Urine RBC 10-25 SEEN, Urine WBC 25-50 SEEN, Ur Squamous Epith Cells 0-5 SEEN, Urine Bacteria 1+, Urine Mucus 0 SEEN Micro: Microbiology 06/23/23 12:10 Mucosa - Nose SARS-CoV-2, Influenza & RSV (PCR) - Final Imaging Radiology Impression Chest X-Ray 06/23/23 11:39 IMPRESSION: Increased markings at the left lung base suggestive of atelectasis and/or scarring. Electronically Signed: Chuck Powers MD at 12:21 EST , Brain CT 06/23/23 11:52 IMPRESSION: Chronic involutional changes of the brain. Electronically Signed: Chuck Powers MD at 12:10 EST , Assessment & Plan Assessment/Plan (1) Acute metabolic encephalopathy: (2) Acute UTI: (3) Frequent falls: PLAN: Plan # Metabolic encephalopathy and weakness likely secondary to UTI -Patient with altered mental status overnight and UA suggestive of UTI -Patient also with elevated white blood cell count and slightly tachycardic -Culture sent -Will give fluids and empirically treat with antibiotics -Consult PT/OT -Case management and social work consults -No specific areas of injury or pain to scan but CT head negative # SEFERINO versus CKD -Creatinine 1.41 however no value since 2020 -Repeat in the a.m. # Coughing after eating -Cannot rule out dysphagia problem, will consult speech #Chronic BPH with obstruction -Continue home medications # Mild thrombocytopenia -Also demonstrated in 2020 -Trend CBC # Hyperlipidemia -Continue Crestor #DVT ppx: Heparin subcu Maya Wood MD Time spent in the patient's overall evaluation,decision-making process, review of diagnostic data, adjustment of management, discussion with other providers, nursing nursing and ancillary staff involved in patient's care documentation, 55 Minutes Charges/Coding Visit Charges Inpatient E&M: 77200 Init Hosp L2
[2023-06-23 14:20] VITALS: BP 116/74; PULSE 94; RESP 20; TEMP 37.4; O2SAT 97
[2023-06-23 14:40] VITALS: BMI 22.1
[2023-06-23] MEDS: 0.9% Normal Saline (1000mL) 1,000 ML 75 ML IV (15:05)
[2023-06-23] MEDS: Tamsulosin HCl 0.4 MG Capsule 0.400000000000000022 MG PO (16:53)
[2023-06-23] MEDS: RisperiDONE 0.5 MG Tablet PO (17:05)
[2023-06-23] MEDS: Heparin Injection (Vial) 5,000 UNIT/ML VIAL 5000 UNIT SC (20:24)
[2023-06-23 20:43] VITALS: BP 104/54; PULSE 73; RESP 20; TEMP 37.3; O2SAT 94
[2023-06-24 02:24] VITALS: BP 122/56; PULSE 80; RESP 18; TEMP 37.6; O2SAT 95
[2023-06-24] MEDS: Acetaminophen 325 MG Tablet 650 MG PO (02:30)
[2023-06-24 05:33] VITALS: BP 106/45; PULSE 65; RESP 22; TEMP 37.3; O2SAT 95
[2023-06-24 06:06] LABS: Absolute Lymphocyte Count 1.18 X10^3/uL (0.83-4.51); Absolute Neutrophil Count 8.9 X10^3/uL (2.0-7.7); Basophil# 0.04 X10^3/uL; Basophil% 0.4 % (0-1); Eosinophil# 0.03 X10^3/uL; Eosinophils% 0.3 % (0-5); Hematocrit 39.6 % (40-54); Hemoglobin 13.1 g/dL (13.0-16.5); Lymphocyte # 1.18 X10^3/ul (0.83-4.51); Lymphocyte % 10.4 % (19-41); Mean Corp Hgb Conc 33.1 g/dL (32-36); Mean Corpuscular Hgb 32.4 pg (27.0-32.0); Mean Platelet Vol. 10.1 fl (6.2-12.0); Monocyte# 1.11 X10^3/uL; Monocyte% 9.8 % (0-10); NRBC Flagged by Analyzer 0 % (0-5); Neutrophil # 8.87 X10^3/uL (2.7-7.7); Neutrophil % 78.2 % (47-70); Platelet Count 115 K/mm3 (150-450); RBC Distribution Width CV 13.2 % (11.6-14.6); RBC Distribution Width SD 47.8 fl (35.1-43.9); Red Blood Count 4.04 M/mm3 (4.6-6.2); White Blood Count 11.3 K/mm3 (4.4-11.0)
--- NOTE | 2023-06-24 06:10 | PCM.PN.HOSP ---
Reason for Visit Reason for Visit: Diagnoses Metabolic encephalopathy (06/23/23) Urinary tract infection, site not specified (06/23/23) Repeated falls (06/23/23) Subjective Subjective Patient overnight wit history of intermittent lethargy likely secondary to sedation medication as he had been given risperidol near 5 pm on day of admission secondary to agitatoin in the ED. He improved overnight but was mildly confused but no further agitation. Currently he denies any acute complaints and is able to tell me where he is at and also who the president is but he admits freely that he is unsure of the year and gives to possible dates 1 of which is correct but does give the wrong month and states August. Discussed his current status with his daughter. Patient denies fevers, chills, nausea, emesis, abdominal pain, chest pain or dyspnea. Objective Data Objective Data Vital Signs: Vital Signs Temp Pulse Resp BP Pulse Ox O2 Del Method 99.1 F 65 22 H 106/45 L 95 Room Air 06/24/23 05:33 06/24/23 05:33 06/24/23 05:33 06/24/23 05:33 06/24/23 05:33 06/24/23 05:33 Oxygen Delivery Method Room Air Weight: 167 lb 12.8 oz Body Mass Index (BMI) 22.1 Intake & Output: Intake and Output for Last 24 Hours 06/22/23 06/23/23 06/24/23 23:59 23:59 23:59 Intake Total 1050 / 1050 878.75 / 878.75 Output Total 200 / 200 150 / 150 Balance 850 / 850 728.75 / 728.75 Lab / Micro Data 06/24/23 05:25 06/24/23 05:25 Labs: Laboratory Results - last 24 hr 06/23/23 11:12: POC Glucose 164 H 06/23/23 11:15: WBC 15.4 H, RBC 4.64, Hgb 15.2, Hct 45.1, MCV 97.2 H, MCH 32.8 H, MCHC 33.7, RDW Std Deviation 46.9 H, RDW Coeff of Tia 13.1, Plt Count 143 L, MPV 10.3, Immature Gran % (Auto) 0.600, Neut % (Auto) 86.9 H, Lymph % (Auto) 3.7 L, [place] % (Auto) 8.7, Eos % (Auto) 0.0, Baso % (Auto) 0.1, Absolute Neuts (auto) 13.4 H, Absolute Lymphs (auto) 0.57 L, Nucleated RBC % 0, PT 33.9 H, INR 3.3, APTT 28.0, Sodium 139, Potassium 4.1, Chloride 107, Carbon Dioxide 29.0, Anion Gap 3 L, BUN 26 H, Creatinine 1.41 H, Est GFR (MDRD) Af Amer 61, Est GFR (MDRD) Non-Af 51 L, BUN/Creatinine Ratio 18.4, Glucose 164 H, Calcium 9.2, Total Bilirubin 1.20 H, AST 22, ALT 27, Alkaline Phosphatase 89, Total Protein 7.3, Albumin 3.7, Globulin 3.6, Albumin/Globulin Ratio 1.0 06/23/23 11:45: Lactic Acid 1.5 06/23/23 12:10: Urine Color Yellow, Urine Clarity Sl. Cloudy, Urine pH 6.0, Ur Specific [place] 1.015, Urine Protein 100 H, Urine Glucose (UA) Normal, Urine Ketones 15 H, Urine Occult Blood 150 H, Urine Nitrite Positive H, Urine Bilirubin Negative, Urine Urobilinogen Normal, Ur Leukocyte Esterase 500 H, Urine RBC 10-25 SEEN, Urine WBC 25-50 SEEN, Ur Squamous Epith Cells 0-5 SEEN, Urine Bacteria 1+, Urine Mucus 0 SEEN 06/24/23 05:25: WBC 11.3 H, RBC 4.04 L, Hgb 13.1, Hct 39.6 L, MCV 98.0 H, MCH 32.4 H, MCHC 33.1, RDW Std Deviation 47.8 H, RDW Coeff of Tia 13.2, Plt Count 115 L, MPV 10.1, Immature Gran % (Auto) 0.900, Neut % (Auto) 78.2 H, Lymph % (Auto) 10.4 L, [place] % (Auto) 9.8, Eos % (Auto) 0.3, Baso % (Auto) 0.4, Absolute Neuts (auto) 8.9 H, Absolute Lymphs (auto) 1.18, Nucleated RBC % 0 Micro: Microbiology 06/23/23 12:10 Mucosa - Nose SARS-CoV-2, Influenza & RSV (PCR) - Final Radiography Diagnostic Testing: Radiology Impression Chest X-Ray 06/23/23 11:39 IMPRESSION: Increased markings at the left lung base suggestive of atelectasis and/or scarring. Electronically Signed: Chuck Powers MD at 12:21 EST , Brain CT 06/23/23 11:52 IMPRESSION: Chronic involutional changes of the brain. Electronically Signed: Chuck Powers MD at 12:10 EST , Physical Exam Narrative Physical Examination: General: Awake, alert, oriented to self, place, president, gives 2 different years 1 of which is correct, gives incorrect month notes August, remains cooperative, following commands and is doing as asked[facility], no acute distress. Skin: Normal color, normal turgor, no icterus, no cyanosis except for occasional staged ecchymoses, abrasion. HEENT: AT/NC, EOMI, PERRLA, MMM. Lungs: CTA bilaterally, moderate effort, mild decrease BL bases, no rales, ronchi or wheezing. Heart: Regular rate and rhythm; no gallop, rub audible. Abdomen: Soft, NTTP, ND, normal BS. Extremities: No cyanosis, clubbing, or edema. Neurological: Patient awake, alert, oriented as noted, cognitive function improved but not baseline intact per family description but do suspect there may be some underlying cognitive impairment component; pupils equally reactive to light and accommodation, cranial nerves II-XII grossly normal, moving all 4 extremities, no focal deficits, strength moderately globally decreased likely secondary to acute presentation, less confused and agitated than upon ED presentation. Psychiatric: Affect appears interactive, smiling, no acute evidence of depressive or anxiety feelings. Assessment & Plan Assessment/Plan (1) Acute UTI: (2) Acute metabolic encephalopathy: PLAN: Plan The patient is an 88 y/o M w/ PMHx: Chronic thrombocytopenia, Dementia unclear type with unclear behavioral disturbance history, HLD, BPH, Hx Frequent falls living at home with his daughter usually using a walker who presents to the [facility] ED on 06/23/23 with history of onset significant weakness, debilities, altered mental status with frequent falls above baseline reportedly going to bed the evening prior at approximately 9 PM at his normal baseline then reportedly falling out of bed at 3 in the morning with difficulty trying to get him back into bed with several other falls prompted eventual ED evaluation. #1. Acute encephalopathy, metabolic/infectious secondary to Acute Complicated Urinary Tract Infection with associated agitation: Workup in the ED included T99.9 Max in the ED, heart rate 100, BP 120/68, respiratory rate 18, 96% on room air, CBC with WBC 15.4, hemoglobin 15.2, platelet 143 with left shift and lymphopenia, coags with PT 33.9, INR 3.3, CMP with BUN/creatinine 26/1.41, glucose 164, lactic acid 1.5, hepatic profile unremarkable aside total bilirubin 1.20, urinalysis noted be cloudy, specific gravity 1.015, protein 100, ketone 15, occult blood 150, positive nitrite, leukocyte esterase 500 with urine RBCs 10-25 and urine WBCs 25-50 with 1+ urine bacteria, urine culture pending per ED, blood culture x 2 pending per ED, rapid SARS COVID/influenza/RSV PCR negative, chest x-ray with increased markings at the left lung base suggestive of atelectasis or scarring, CT brain with chronic involutional changes, EKG with sinus rhythm with PACs with no acute evidence of ischemia. Admitted to PA, pending UCx, continue IVFs, monitor I/Os, continue IV Rocephin w/ transition as able pending sensitivities and speciation. Patient was administered risperidone 0.5 mg in the ED x 2 because of agitation. Bld cx x 2 obtained in the ED. PT/OT/CM consultations for discharge planning. 06/24/23 Updated daughter about his current status. #2. Suspected advancement of underlying CKD to CKD stage III unclear subtype with prior chart evidence of CKD with stage II: CKD stage II previously however remote labs in 2020: Admission BUN/creatinine 26/1.41 with GFR 51 and previously noted 73, maintained on judicious hydration, 06/24/2023 BUN/creatinine 26/1.34, thus suspect likely stage III transition, will continue to trend. #3. Possible dysphagia: Patient reporting history of coughing with eating, speech therapy consulted, maintain on aspiration precautions. Will defer diet alterations to speech therapy discretion. #4. Coagulopathy, suspected lab error: Admission INR 3.3, PTT 33.9, from current list did not appear to be on chronic anticoagulant therapy, repeat INR obtained and noted to be 1.2, hepatic profile not marked, likely lab error. #5. Mild thrombocytopenia, chronic, unclear etiology: Admission platelets 143, previous baseline 130, similar, unclear exact etiology, 06/24/2023 platelet 115, continue to trend. #6. Hyperglycemia: Admission glucose 164, possibly stress response, A1c ordered. #7. Hyperlipidemia: We will continue statin therapy. #8. Chronic BPH with obstructive history: Will maintain on Flomax as substitution for home medication. #9. DVT prophylaxis: Admission INR reported 3.3, temporarily held heparin, recheck INR 1.2, likely was falesly elevated, will restart chemoprophylactic heparin. #10. CODE STATUS: DNR CCA, no intubation. Charges/Coding Visit Charges Inpatient E&M: 97280 Subs Hosp L3
[2023-06-24 06:30] LABS: International Normalized Ratio 1.2; Prothrombin Time (Protime)PT. 14.7 SECONDS (11.7-14.9)
[2023-06-24 07:08] LABS: Anion Gap 4 (5-15); BUN 26 mg/dL (7-18); BUN/Creat Ratio 19.4 RATIO (10-20); Calcium,Total 8.5 mg/dL (8.5-10.1); Chloride 109 mmol/L (98-107); Creatinine, Serum 1.34 mg/dL (0.70-1.30); EST Glomerular Filtration Rate 54 mL/min (>60); Est Glom Filt Rate - Afr Amer 65 mL/min (>60); Glucose 113 mg/dL (74-106); Sodium Level 140 mmol/L (136-145); Thyroid Stim Hormone (TSH) 0.88 uIU/mL (0.358-3.74)
[2023-06-24] MEDS: Docusate Sodium 100 MG Capsule PO (08:15)
[2023-06-24 08:18] VITALS: BP 95/45; PULSE 82; RESP 16; TEMP 37.4; O2SAT 96
--- NOTE | 2023-06-24 08:26 | EKG12_ITS ---
Test Reason : GENERAL Blood Pressure : / mmHG Vent. Rate : 097 BPM Atrial Rate : 097 BPM P-R Int : 170 ms QRS Dur : 094 ms QT Int : 346 ms P-R-T Axes : 051 -41 016 degrees QTc Int : 439 ms Normal sinus rhythm with sinus arrhythmia Left axis deviation Abnormal ECG When compared with ECG of 23-JUN-2023 11:12, MANUAL COMPARISON REQUIRED, DATA IS UNCONFIRMED Confirmed by Jeffery Allred ([id number]), editorial manager ASHTYN RICHTER ([id number]) on 06/28/2023 9:45:06 AM Referred By: Confirmed By:Jeffery Allred
[2023-06-24] MEDS: Heparin Injection (Vial) 5,000 UNIT/ML VIAL 5000 UNIT SC ×2 (09:31→21:37)
[2023-06-24] MEDS: 0.9% Saline Lock 10 ML Syringe IV ×2 (09:37→21:38)
[2023-06-24] MEDS: Ceftriaxone 1 GM/50 ML BAG IV (09:37)
[2023-06-24 09:56] LABS: Hemoglobin A1c 5.7 % (3.8-5.6)
--- NOTE | 2023-06-24 13:25 | CASEMGMT ---
Addendum entered by Leela Liu 06/24/23 15:03: Patient was accepted by [facility] with planned start of care for Tuesday. RN CM updated patient and daughter. Original Note: RN CM Face to Face with patient for initial transition planning/care coordination assessment. RN CM introduced self and role at [facility]. Patient sitting in chair, alert and oriented, daughter at bedside. Patient willing to participate in assessment and is able to answer all questions appropriately. Care providers, pharmacy, and demographics verified. Patient and daughter wish to discharge home, agreeable to [facility] for PT/ST and prefer [facility], declined list. Patient states he has no further needs or concerns at this time. CM to follow for discharge planning needs that may arise. PCP: Dary Specialists: none Preferred Pharmacy: [facility] Insurance: [facility] Oscar Prescription Benefit: yes Living Will/HPOA: yes, Chinyere Lion LNOK: daughters Living Arrangements: Patient lives with daughter Kathi in a single story home with ramp to enter the home. Patient is independent at home. Transportation: daughter DME/HHC: Patient has raised toilet, grab bars, and walker at home. No previous SNF. Patient has had [facility] in the past. GRIFFIN TINAJERO called and made referral to [facility], awaiting acceptance. Disposition Plan: Patient to discharge home with family support and follow-up plans in place. Leela GOMEZ, RN, CM
[2023-06-24 14:23] VITALS: BP 115/51; PULSE 85; RESP 16; TEMP 36.8; O2SAT 99
[2023-06-24] MEDS: Tamsulosin HCl 0.4 MG Capsule 0.400000000000000022 MG PO (17:08)
[2023-06-24 18:40] VITALS: BMI 23.1
[2023-06-24 21:32] VITALS: BP 149/82; PULSE 87; RESP 18; TEMP 37.1; O2SAT 95
[2023-06-24] MEDS: QUEtiapine 25 MG Tablet PO (21:39)
[2023-06-24] MEDS: Atorvastatin Calcium 20 MG Tablet PO (21:39)
[2023-06-24] MEDS: MELATONIN 10 MG TABLET PO (21:39)
[2023-06-24 23:13] VITALS: BP 126/59; PULSE 70; RESP 18; TEMP 37.2; O2SAT 92
[2023-06-25 05:45] VITALS: BP 136/69; PULSE 80; RESP 18; TEMP 37.2; O2SAT 95
--- NOTE | 2023-06-25 06:16 | PN.HOSP_ITS ---
Reason for Visit Reason for Visit: Diagnoses Metabolic encephalopathy (06/23/23) Urinary tract infection, site not specified (06/23/23) Repeated falls (06/23/23) Subjective Subjective Patient with no acute events overnight per self and per nursing reports. He was noted to be more alert and interactive with no evidence of any agitation. This morning he was in the bedside chair and very talkative. Staff reported that he did not have any issues with modified diet per ST recommendation. Patient denies fevers, chills, nausea, emesis, abdominal pain, chest pain or dyspnea. Objective Data Objective Data Vital Signs: Vital Signs Temp Pulse Resp BP Pulse Ox O2 Del Method 99.0 F 80 18 136/69 H 95 Room Air 06/25/23 05:45 06/25/23 05:45 06/25/23 05:45 06/25/23 05:45 06/25/23 05:45 06/25/23 05:45 Oxygen Delivery Method Room Air Weight: 174 lb 9.6 oz Body Mass Index (BMI) 23.1 Intake & Output: Intake and Output for Last 24 Hours 06/23/23 06/24/23 06/25/23 23:59 23:59 23:59 Intake Total 1050 / 1050 928.75 / 928.75 Output Total 200 / 200 950 / 950 900 / 900 Balance 850 / 850 -21.25 / -21.25 -900 / -900 Lab / Micro Data 06/25/23 06:42 06/25/23 06:42 Labs: Laboratory Results - last 24 hr 06/24/23 05:25: PT 14.7, INR 1.2, Sodium 140, Potassium 4.0, Chloride 109 H, Carbon Dioxide 27.0, Anion Gap 4 L, BUN 26 H, Creatinine 1.34 H, Estim Creat Clear Calc 42.60, Est GFR (MDRD) Af Amer 65, Est GFR (MDRD) Non-Af 54 L, BUN/Creatinine Ratio 19.4, Glucose 113 H, Hemoglobin A1c 5.7 H, Calcium 8.5, TSH 0.88 Micro: Microbiology 06/23/23 12:10 Mucosa - Nose SARS-CoV-2, Influenza & RSV (PCR) - Final Physical Exam Narrative Physical Examination: General: Awake, alert, oriented to place, self, year but gives the wrong presidents and wrong month but much more alert and interactive and appropriate. Skin: Normal color, normal turgor, no icterus, no cyanosis except for occasional staged ecchymoses, abrasion. HEENT: AT/NC, EOMI, PERRLA, MMM. Lungs: CTA bilaterally, moderate effort, mild decrease BL bases, no rales, ronchi or wheezing. Heart: Regular rate and rhythm; no gallop, rub audible. Abdomen: Soft, NTTP, ND, normal BS. Extremities: No cyanosis, clubbing, or edema. Neurological: Patient awake, alert, oriented as noted, cognitive function improved with suspected underlying cognitive impairment but unclear degree; pupils equally reactive to light and accommodation, cranial nerves II-XII grossly normal, moving all 4 extremities, no focal deficits, strength improving, moderately globally decreased likely secondary to acute presentation. Psychiatric: Affect appears interactive, more appropriate, no acute evidence of depressive or anxiety feelings. Assessment & Plan Assessment/Plan (1) Acute UTI: (2) Acute metabolic encephalopathy: PLAN: Plan The patient is an 88 y/o M w/ PMHx: Chronic thrombocytopenia, Dementia unclear type with unclear behavioral disturbance history, HLD, BPH, Hx Frequent falls living at home with his daughter usually using a walker who [facility] ED [facility]23 with history of onset significant weakness, debilities, altered mental status with frequent falls above baseline reportedly going to bed the evening prior at approximately 9 PM at his normal baseline then reportedly falling out of bed at 3 in the morning with difficulty trying to get him back into bed with several other falls prompted eventual ED evaluation. #1. Acute encephalopathy, metabolic/infectious secondary to Acute Complicated Urinary Tract Infection (mixed gram-positive/gram-negative organisms) with associated agitation: Workup in the ED included T99.9 Max in the ED, heart rate 100, BP 120/68, respiratory rate 18, 96% on room air, CBC with WBC 15.4, hemoglobin 15.2, platelet 143 with left shift and lymphopenia, coags with PT 33.9, INR 3.3, CMP with BUN/creatinine 26/1.41, glucose 164, lactic acid 1.5, hepatic profile unremarkable aside total bilirubin 1.20, urinalysis noted be cloudy, specific gravity 1.015, protein 100, ketone 15, occult blood 150, positive nitrite, leukocyte esterase 500 with urine RBCs 10-25 and urine WBCs 2 5-50 with 1+ urine bacteria, urine culture unfortunately resulted with mixed gram-positive and gram-negative organisms, blood culture x 2 pending per ED, rapid SARS COVID/influenza/RSV PCR negative, chest x-ray with increased markings at the left lung base suggestive of atelectasis or scarring, CT brain with chronic involutional changes, EKG with sinus rhythm with PACs with no acute evidence of ischemia. Admitted to MS, continue IVFs, monitor I/Os, continued IV Rocephin with urine culture as noted with mixed gram-positive and gram-negative organisms but clinically improving thus still suspect this is a component to his presentation. Patient was administered risperidone 0.5 mg in the ED x 2 because of agitation. 06/24/23 onward patient remained appropriate and mental status continued to improve. PT/OT/CM consultations for discharge planning with recommendation for home PT and speech therapies. Discussed current status with daughter and given improvement will plan discharge to home on oral abx therapy with currently administered 3 days. #2. Suspected advancement of underlying CKD to CKD stage III unclear subtype with prior chart evidence of CKD with stage II: CKD stage II previously however remote labs in 2020: Admission BUN/creatinine 26/1.41 with GFR 51 and previously noted 73, maintained on judicious hydration, 06/24/2023 BUN/creatinine 26/1.34-->06/25/23 BUN/Cr 28/1.29, thus suspect likely stage III transition. #3. Dysphagia, frequent coughing with meals noted outpatient: Patient reporting history of coughing with eating, speech therapy consulted and recommended supervision, small bites, rotate fluid-food, upright 30 minutes after with no specific food alterations with continued outpatient ST evaluation. #4. Coagulopathy, suspected lab error: Admission INR 3.3, PTT 33.9, from current list did not appear to be on chronic anticoagulant therapy, repeat INR obtained and noted to be 1.2, hepatic profile not marked, likely lab error. #5. Mild thrombocytopenia, chronic, unclear etiology: Admission platelets 143, previous baseline 130, similar, unclear exact etiology, 06/24/2023 platelet 115-->06/25/23 platlet 108, continue to trend. #6. Prediabetic: Admission glucose 164, possibly stress response, A1c 5.7%, given on lower deferred accu checks and ISS but transitioned to ADA diet. Will need repeat HgbA1c outpatient. #7. Hyperlipidemia: We will continue statin therapy. #8. Chronic BPH with obstructive history: Will maintain on Flomax as substitution for home medication. #9. DVT prophylaxis: Admission INR reported 3.3, temporarily held heparin, recheck INR 1.2, likely was falsely elevated, restarted chemoprophylactic heparin. #10. CODE STATUS: DNR CCA, no intubation. Charges/Coding Visit Charges Inpatient E&M: 53638 Subs Hosp L2
[2023-06-25 06:58] LABS: Absolute Lymphocyte Count 1.05 X10^3/uL (0.83-4.51); Absolute Neutrophil Count 5.6 X10^3/uL (2.0-7.7); Basophil# 0.04 X10^3/uL; Basophil% 0.5 % (0-1); Eosinophil# 0.18 X10^3/uL; Eosinophils% 2.2 % (0-5); Hemoglobin 13.9 g/dL (13.0-16.5); Lymphocyte # 1.05 X10^3/ul (0.83-4.51); Lymphocyte % 12.9 % (19-41); Mean Corp Hgb Conc 33.1 g/dL (32-36); Mean Corpuscular Volume 96.6 fL (80-94); Monocyte# 1.14 X10^3/uL; Monocyte% 14.1 % (0-10); NRBC Flagged by Analyzer 0 % (0-5); Neutrophil # 5.64 X10^3/uL (2.7-7.7); Neutrophil % 69.6 % (47-70); Platelet Count 120 K/mm3 (150-450); RBC Distribution Width SD 46.9 fl (35.1-43.9); Red Blood Count 4.35 M/mm3 (4.6-6.2); White Blood Count 8.1 K/mm3 (4.4-11.0)
[2023-06-25 07:32] LABS: ALB/GLOB Ratio 0.9 RATIO (0.9-2.4); AST(SGOT) 51 U/L (15-37); Alanine Aminotransfer ALT/SGPT 45 U/L (16-61); Albumin, Serum 2.7 g/dL (3.2-5.0); Alkaline Phosphatase 67 U/L (45-117); Anion Gap 4 (5-15); BUN 28 mg/dL (7-18); BUN/Creat Ratio 21.7 RATIO (10-20); Calcium,Total 8.8 mg/dL (8.5-10.1); Chloride 110 mmol/L (98-107); Creatinine, Serum 1.29 mg/dL (0.70-1.30); EST Glomerular Filtration Rate 56 mL/min (>60); Est Glom Filt Rate - Afr Amer 68 mL/min (>60); Estimated Creatinine Clearance 46.04 ml/min; Globulin 3.1 g/dL (2.2-4.2); Glucose 108 mg/dL (74-106); Potassium 3.9 mmol/L (3.5-5.1); Protein, Total 5.8 g/dL (6.4-8.2); Sodium Level 141 mmol/L (136-145)
[2023-06-25 10:00] VITALS: BP 102/48; PULSE 82; RESP 19; TEMP 37.1; O2SAT 94
[2023-06-25] MEDS: Menthol/Lanolin/Calamine/Znox 113 GM Tube 1 APPLIC TOPICAL (10:08)
[2023-06-25] MEDS: Ceftriaxone 1 GM/50 ML BAG IV (10:09)
[2023-06-25] MEDS: Heparin Injection (Vial) 5,000 UNIT/ML VIAL 5000 UNIT SC (10:09)
[2023-06-25] MEDS: Docusate Sodium 100 MG Capsule PO (10:10)
[2023-06-25] MEDS: 0.9% Saline Lock 10 ML Syringe IV (10:10)
--- NOTE | 2023-06-25 12:49 | DS.PCM_ITS ---
Providers Date of Admission: 06/23/23 Date of Discharge: 06/25/23 Primary Care Physician: Dr. Oneil Foote MD Reason For Visit: METABOLIC ENCEPHALOPATHY 2/2 UTI Diagnosis Discharge Diagnosis (1) Acute UTI: Status: Acute Code(s): N39.0 - Urinary tract infection, site not specified Plan: DISCHARGE DIAGNOSES: #1. Acute encephalopathy, metabolic/infectious secondary to Acute Complicated Urinary Tract Infection (mixed gram-positive/gram-negative organisms) with associated agitation #2. Suspected advancement of underlying CKD to CKD stage III unclear subtype with prior chart evidence of CKD with stage II #3. Dysphagia, frequent coughing with meals noted outpatient #4. Coagulopathy, suspected lab error, normalized #5. Mild thrombocytopenia, chronic, unclear etiology #6. Prediabetic (A1c 5.7%) #7. Hyperlipidemia #8. Chronic BPH with obstructive history #9. CODE STATUS: DNR CCA, no intubation. (2) Acute metabolic encephalopathy: Status: Acute Code(s): G93.41 - Metabolic encephalopathy Medications at Discharge Home Medications alfuzosin 10 mg tablet,extended release 24 hr (Uroxatral) 10 mg PO DAILY PROSTATE 05/15/18 multivitamin 1 ea PO DAILY HEALTH MAINTENANCE 05/15/18 rosuvastatin 10 mg tablet 10 mg PO DAILY CHOLESTEROL 05/15/18 docusate sodium 100 mg capsule (Colace) 100 mg PO DAILY CONSTIPATION #30 caps 01/18/21 cefdinir 300 mg capsule 300 mg PO BID 4 days #8 caps 06/25/23 melatonin 10 mg sublingual tablet 10 mg PO QHS 30 days #30 tabs 06/25/23 quetiapine 25 mg tablet 25 mg PO QHS 30 days #30 tabs 06/25/23 Hospital Course Operations None Procedures EKG Summary of Care Provided Hospital Course: The patient is an 88 y/o M w/ PMHx: Chronic thrombocytopenia, Dementia unclear type with unclear behavioral disturbance history, HLD, BPH, Hx Frequent falls living at home with his daughter usually using a walker who presented to the [facility] ED on 06/23/23 with history of onset significant weakness, debilities, altered mental status with frequent falls above baseline reportedly going to bed the evening prior at approximately 9 PM at his normal baseline then reportedly falling out of bed at 3 in the morning with difficulty trying to get him back into bed with several other falls prompted eventual ED evaluation. Workup in the ED included T99.9 Max in the ED, heart rate 100, BP 120/68, respiratory rate 18, 96% on room air, CBC with WBC 15.4, hemoglobin 15.2, platelet 143 with left shift and lymphopenia, coags with PT 33.9, INR 3.3, CMP with BUN/creatinine 26/ 1.41, glucose 164, lactic acid 1.5, hepatic profile unremarkable aside total bilirubin 1.20, urinalysis noted be cloudy, specific gravity 1.015, protein 100, ketone 15, occult blood 150, positive nitrite, leukocyte esterase 500 with urine RBCs 10-25 and urine WBCs 25-50 with 1+ urine bacteria, urine culture unfortunately resulted with mixed gram-positive and gram-negative organisms, blood culture x 2 pending per ED, rapid SARS COVID/influenza/RSV PCR negative, chest x-ray with increased markings at the left lung base suggestive of atelectasis or scarring, CT brain with chronic involutional changes, EKG with sinus rhythm with PACs with no acute evidence of ischemia. Admitted to RI, continue IVFs, monitor I/Os, continued IV Rocephin with urine culture as noted with mixed gram-positive and gram-negative organisms but clinically improving thus suspected this was a component to his presentation with transition to oral regimen upon discharge. Patient was administered risperidone 0.5 mg in the ED x 2 because of agitation. 06/24/23 onward patient remained appropriate and mental status continued to improve with low dose seroquel qHS which was continued in addition to melatonin upon discharge per discussion with family. Admission glucose 164, initial concern stress response, obtained A1c 5.7%, given on lower deferred accu checks and ISS but transitioned to ADA diet. Discussed with daughter and given advanced age noted they could continue to allow broad diet or ADA pending their prefence and also potentially repeat outpatient A1c if they intervene at later date. Admission platelets 143, previous baseline 130, similar, unclear exact etiology, 06/24/2023 platelet 115-->06/25/23 platlet 108. Admission BUN/creatinine 26/1.41 with GFR 51 and previously noted 73, maintained on judicious hydration, 06/24/2023 BUN/creatinine 26/1.34-->06/25/23 BUN/Cr 28/1.29, thus suspect likely stage III transition. Patient with upon admission noted issues with dysphagia, frequent coughing with meals noted outpatient: Patient reporting history of coughing with eating, speech therapy consulted and recommended supervision, small bites, rotate fluid-food, upright 30 minutes after with no specific food alterations with continued outpatient ST evaluation. PT/OT/CM consultations for discharge planning with recommendation for home PT and speech therapies. Discussed current status with daughter and given imp rovement will plan discharge to home on oral abx therapy with currently administered 3 days. Given clinical improvement per discussion with family decision for discharge to home with ongoing outpatient physical and speech therapy with continued oral antibiotic therapy until completion of days of don ropriate treatment with early PCP reevaluation recommended. Weight / BMI Weight Weight: 174 lb 9.6 oz Body Mass Index (BMI) 23.1 ABG / Lab / Microbiology Data 06/25/23 06:42 06/25/23 06:42 Laboratory: Laboratory Results - last 24 hr 06/25/23 06:42: WBC 8.1, RBC 4.35 L, Hgb 13.9, Hct 42.0, MCV 96.6 H, MCH 32.0, MCHC 33.1, RDW Std Deviation 46.9 H, RDW Coeff of Tia 13.0, Plt Count 120 L, MPV 10.0, Immature Gran % (Auto) 0.700, Neut % (Auto) 69.6, Lymph % (Auto) 12.9 L, [place] % (Auto) 14.1 H, Eos % (Auto) 2.2, Baso % (Auto) 0.5, Absolute Neuts (auto) 5.6, Absolute Lymphs (auto) 1.05, Nucleated RBC % 0, Sodium 141, Potassium 3.9, Chloride 110 H, Carbon Dioxide 27.0, Anion Gap 4 L, BUN 28 H, Creatinine 1.29, Estim Creat Clear Calc 46.04, Est GFR (MDRD) Af Amer 68, Est GFR (MDRD) Non-Af 56 L, BUN/Creatinine Ratio 21.7 H, Glucose 108 H, Calcium 8.8, Total Bilirubin 0.60, AST 51 H, ALT 45, Alkaline Phosphatase 67, Total Protein 5.8 L, Albumin 2.7 L, Globulin 3.1, Albumin/Globulin Ratio 0.9 Microbiology: Microbiology 06/23/23 12:10 Urine, Catheterized Urine Culture - Preliminary Coag Negative Staph Gram positive organism Gram positive organism#2 06/23/23 12:10 Mucosa - Nose SARS-CoV-2, Influenza & RSV (PCR) - Final D/C Instructions Discharge Diet: No restrictions May resume sexual activity in: No Restrictions Weight Bearing Status: Weight bearing as tolerated Call your doctor if you observe: Fever of 101 or Higher, Numbness or Tingling, Inability to urinate, Dizziness, Swelling in the ankles, Chest pain, Increased palpitations (irregular heartbeat) and Uncontrolled pain Meaningful Use Info Meaningful Use Diagnoses (Choose all that apply): None applicable Discharge Plan Admission Admit Date/Time: 06/23/23 13:39 Primary Reason for Your Visit: Encephalopathy, Complicated Urinary Tract Infection Attending Provider: Janette Solis Primary Care Provider: Oneil Foote Consulting Providers: Maya Wood Instructions Patient Instructions: Urinary Tract Infections in Men, Dementia Safety Tips for Caregivers, Dementia Daily Care, Dementia Caregiver Tips Additional Instructions / Restrictions: ADDITIONAL DISCHARGE INFORMATION/PLAN OF CARE: #1. Acute Confusion secondary to Acute Complicated Urinary Tract Infection (mixed gram-positive/gram-negative organisms) with associated agitation: --Urine culture unfortunately resulted with mixed gram-positive and gram- negative organisms but given improved with treatment opted to continue and complete 7 day course total of antibiotics. --Started on low dose seroquel at night as well as melatonin to assist with cognitive impairment/dementia associated agitation. --Once clinically resolved acute presentation would benefit from outpatient cognitive further assessment. --Please continue home physical and speech therapies. --Continued on alfuzosin regimen. #2. Dysphagia, frequent coughing with meals noted outpatient: Patient reporting history of coughing with eating, speech therapy consulted and recommended supervision, small bites, rotate fluid-food, upright 30 minutes after with no specific food alterations with continued outpatient ST evaluation. Please continue speech therapy upon discharge arranged for home. #3. Prediabetic: Admission glucose 164, A1c 5.7%, thus consistent with prediabetes. Given on lower end transitioned while inpatient to a diabetic diet only but given his age may consider allowing him to continue diet per his own preference. May consider repeat HgbA1c outpatient per primary care discretion. Discharge Orders/Prescriptions Prescriptions: New quetiapine 25 mg Tablet 25 mg PO QHS 30 Days Qty: 30 0RF melatonin 10 mg Tablet, Sublingual 10 mg PO QHS 30 Days Qty: 30 0RF cefdinir 300 mg capsule 300 mg PO BID 4 Days Qty: 8 0RF Continued multivitamin 1 EACH tablet 1 ea PO DAILY rosuvastatin 10 MG tablet 10 mg PO DAILY alfuzosin [Uroxatral] 10 MG tablet extended release 24 hr 10 mg PO DAILY docusate sodium [Colace] 100 mg capsule 100 mg PO DAILY Qty: 30 0RF Referrals / Follow Up: Oneil Foote MD [Primary Care Provider] - (Follow-up within 3-5 days to review admission.) Disposition Disposition (needs filled in before D/C Order can be placed): Home Health Service Charges/Coding Visit Charges Inpatient E&M: 08771 Disch Hosp >30min
[2023-06-25 14:25] VITALS: BP 101/54; PULSE 80; RESP 16; TEMP 36.8; O2SAT 97
== END 2023-06-25 14:49 | disposition home health service (06) | DRG 689 ==
LOC: ED 13:44 → MS3 14:13
PROVIDERS: Nurse Practitioner; Admitting Provider Internal Medicine; Emergency Provider Emergency Medicine; PCP Family Medicine; Visit Provider Family Medicine
DX: N39.0 Urinary tract infection, site not specified (principal); G93.41 Metabolic encephalopathy; D68.9 Coagulation defect, unspecified; F03.911 Unspecified dementia, unspecified severity, with agitation; D69.6 Thrombocytopenia, unspecified; N18.30 Chronic kidney disease, stage 3 unspecified; E78.5 Hyperlipidemia, unspecified; N40.1 Benign prostatic hyperplasia with lower urinary tract symptoms; N13.8 Other obstructive and reflux uropathy; R13.10 Dysphagia, unspecified; R73.03 Prediabetes; B96.89 Other specified bacterial agents as the cause of diseases classified elsewhere; Z79.899 Other long term (current) drug therapy; R29.6 Repeated falls; R41.0 Disorientation, unspecified
CPT/HCPCS: 36415; 70450; 71045; 80048; 80053; 81001; 82962; 83036; 83605; 84443; 85025; 85610; 85730; 87040; 87077; 87086; 87088; 87186; 87631; 92507; 92610; 93005; 97162; 97166; 97535; 97802; 99285; J7030; A4216

== ENCOUNTER 2023-07-16 11:34 | Emergency (ER) | payer MEDICARE, OTHER, SELFPAY ==
[2023-07-16 11:35] VITALS: BP 146/79; PULSE 89; RESP 18; TEMP 36.9; O2SAT 97; BMI 23.0
--- NOTE | 2023-07-16 11:53 | EX.ED.DYSGE1 ---
HPI History of Present Illness Chief Complaint: Confusion Informant: patient and family (Daughter is with the patient. Patient lives with his daughter.) Limited: dementia Onset/Context/Timing Onset: Today Context: Gradual Onset Timing: Continuous Maximum Severity: Mild Narrative Narrative: 88-year-old male history of some dementia, enlarged prostate, falls and recent UTI for which she was admitted on 06/23/2023. Daughter says similar today to seems a little confused this morning. No recent falls. No recent illness or fever. He states he has some mild nausea but no vomiting or diarrhea. Prior similar symptoms: Yes Recent Illness/Hospitalization: Yes [facility] Medical History Dementia Frequent falls Hyperlipidemia Non-smoker Prostate disorder Rotator cuff arthropathy Home Medications alfuzosin 10 mg tablet,extended release 24 hr (Uroxatral) 10 mg PO DAILY PROSTATE 05/15/18 [History Last Taken 06/22/23] multivitamin 1 ea PO DAILY HEALTH MAINTENANCE 05/15/18 [History Last Taken 06/22/23] rosuvastatin 10 mg tablet 10 mg PO DAILY CHOLESTEROL 05/15/18 [History Last Taken 06/22/23] docusate sodium 100 mg capsule (Colace) 100 mg PO DAILY CONSTIPATION #30 caps 01/18/21 [Rx Last Taken 06/22/23] cefdinir 300 mg capsule 300 mg PO BID 4 days #8 caps 06/25/23 [Rx Last Taken Unknown] melatonin 10 mg sublingual tablet 10 mg PO QHS 30 days #30 tabs 06/25/23 [Rx Last Taken Unknown] quetiapine 25 mg tablet 25 mg PO QHS 30 days #30 tabs 06/25/23 [Rx Last Taken Unknown] nitrofurantoin monohydrate/macrocrystals 100 mg capsule (Macrobid) 100 mg PO BID UTI 10 days #20 caps 07/16/23 [Rx Last Taken Unknown] Allergy/AdvReac Type Severity Reaction Status Date / Time No Known Allergies Allergy Verified 06/23/23 11:04 Social History Smoking Status: Never smoker ROS ROS ED ROS Narrative Denies recent illness. Mild nausea. Review of Systems ROS Unobtainable: Denies due to encephalopathy Constitutional Constitutional ED: Denies chills or fever(s) Eyes Eyes: Denies blurry vision ENT ENT ED: Denies ear pain Cardiovascular Cardiovascular: Denies chest pain Respiratory/Chest Respiratory/Chest: Denies cough or dyspnea Gastrointestinal Gastrointestinal: Reports nausea; Denies abdominal pain, constipation, diarrhea, melena or vomiting Genitourinary Genitourinary ED: Denies dysuria or hematuria Musculoskeletal Musculoskeletal: Denies arthralgias or back pain Integumentary Denies abscess Neurologic Neurologic: Denies headache(s) Psychiatric Psychiatric: Denies anxiety Endocrine Endocrinology: Denies cold intolerance Hematologic/Lymphatic Hematologic/Lymphatic: Reports none Allergic/Immunologic Allergic/Immunologic ED: Denies mouth swelling, tongue swelling or urticaria EXAM Physical Exam Narrative Exam Narrative: Well-appearing 88-year-old male. Vital signs stable afebrile. Pulse ox 97% on room air no hypoxia. H EENT exam pupils round react to light. No signs of trauma. Moist mucous membranes. No facial droop. Normal speech. Neck nontender no lymphadenopathy. Lungs clear to auscultation bilaterally. Heart regular rhythm rate about 90 no murmur. Chest wall and ribs nontender. Abdomen soft nontender. Moving all 4 extremities. 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 Dorsi plantarflexion intact. No deformity. No edema. Neurologically he is awake. He is answering questions. He knows he is in the hospital. He knows his daughter is with him. He knows the month. He knows the president. Const Vital Signs: 07/16/23 11:35 07/16/23 12:34 Temperature 98.4 F Temperature Source Temporal Pulse Rate 89 80 Respiratory Rate 18 20 H Blood Pressure 146/79 H 123/65 H Blood Pressure Mean 101 84 Pulse Ox 97 97 Oxygen Delivery Method Room Air Room Air Positive well nourished and well developed; Negative for obese, cachectic, contractures or unkempt General Appearance ED: well developed and NAD; Negative for unkempt, cachectic, contractures, cyanotic, diaphoretic or pallor Nutritional Appearance: Negative for cachectic or obese HEENT Reports moist mucous membranes; Denies dry mucous membranes Negative for trauma or tenderness Mouth ED: No dry mucous membranes Mouth: No dry mucous membranes Eyes PERRL and EOMs intact bilaterally General Eye ED: Negative for pale conjunctiva or scleral icterus Neck no lymphadenopathy, supple and no JVD General: Negative for tenderness Lymph Lymphatic: Negative for other Chest Wall inspection of chest normal and palpation of chest normal Chest: Negative for other Resp normal respiratory effort and clear to auscultation bilaterally Effort and Inspection: Negative for retractions Auscultation: Negative for rales, rhonchi or wheezes Cardio regular rate, regular rhythm, S1 normal heart sound, S2 normal heart sound and no murmurs Rate: Negative for bradycardia or tachycardic GI normal to inspection, nondistended, normoactive bowel sounds, non-tender, non-distended and no masses Auscultation: normoactive bowel sounds Palpation: soft; Negative for tender, guarding or rebound tenderness present Back/Spine no CVA tenderness General Back: Negative for CVA tenderness Cervical Spine: Negative for cervical spine tenderness Thoracic Spine / Upper Back: Negative for thoracic spinal tenderness or paraspinal muscle tenderness Lumbar Spine / Lower Back: Negative for lumbar spinal tenderness Extremity normal to inspection General Extremety ED: Negative for edema or tenderness General Extremity: Negative for edema Neuro oriented x3 and CN's II-XII intact bilaterally Sensorium / Orientation: alert; Negative for orientation impaired, lethargic or stuporous Motor Exam: strength 5/5 throughout Psych mental status grossly normal Appearance: Negative for unkempt Attitude: No agitated Mood & Affect: Negative for depressed, anxious or tearful Skin no rashes or lesions noted and no wounds General Skin Exam: Negative for jaundice or pallor Lesions: No lesion noted Rashes: No rashes noted Trauma: Negative for abrasion Wounds: Negative for wounds noted MDM MDM MDM Narrative Medical decision making narrative: 88-year-old male with some confusion per daughter. Exam is benign. Screening labs and urinalysis to be obtained. He had a very similar workup about 3 to 4 weeks ago. He had UTI at that time. He had a CAT scan at that time I do not think that needs to be repeated. Repeat exam patient doing well at 12:45 PM. I had a lengthy discussion both he and his daughter at bedside. He lives with his daughter. She is comfortable with him being discharged home. Will give him a dose of Macrobid here. 10-day prescription for home. Urine culture sent. She will follow-up with his primary care physician Dr. Foote this week. She understands if he gets worse mental status change, fever looking worse to return for admission. At this time he really does not meet criteria for admission. She is comfortable with the plan. History & Record Review Discussion w/independent historian: Patient Additional record(s) reviewed:: Prior inpatient record, Prior outpatient record, Prior ED visit, Prior labs and No prior records Lab Data Attestation: I reviewed the patient's lab results. Lab results narrative: CBC shows a white count 10.3. H&H of 14 and 44. Platelets slightly low at 132. Electrolytes show gap of 3 BUN 24 creatinine 1.52. Glucose 141. Liver tests are unremarkable. Urinalysis is consistent with infection with greater than 100 white cells no nitrites no red cells 1+ bacteria. A culture will be sent. I did review her last urine culture was sensitive to Macrobid. Labs: Laboratory Results - last 24 hr 07/16/23 11:50 WBC 10.3 RBC 4.49 L Hgb 14.3 Hct 44.2 MCV 98.4 H MCH 31.8 MCHC 32.4 RDW Std Deviation 48.5 H RDW Coeff of Tia 13.2 Plt Count 132 L MPV 9.5 Immature Gran % (Auto) 0.500 Neut % (Auto) 79.3 H Lymph % (Auto) 7.4 L [place] % (Auto) 12.4 H Eos % (Auto) 0.2 Baso % (Auto) 0.2 Absolute Neuts (auto) 8.2 H Absolute Lymphs (auto) 0.76 L Nucleated RBC % 0 Sodium 140 Potassium 4.4 Chloride 108 H Carbon Dioxide 29.0 Anion Gap 3 L BUN 24 H Creatinine 1.52 H Estim Creat Clear Calc 39.03 Est GFR (MDRD) Af Amer 56 L Est GFR (MDRD) Non-Af 46 L BUN/Creatinine Ratio 15.8 Glucose 141 H Calcium 8.8 Total Bilirubin 1.30 H AST 14 L ALT 22 Alkaline Phosphatase 95 Total Protein 6.5 Albumin 3.3 Globulin 3.2 Albumin/Globulin Ratio 1.0 Urine Color Yellow Urine Clarity Cloudy Urine pH 6.5 Ur Specific Stewart 1.015 Urine Protein 100 H Urine Glucose (UA) Normal Urine Ketones 5 H Urine Occult Blood 250 H Urine Nitrite Negative Urine Bilirubin Negative Urine Urobilinogen Normal Ur Leukocyte Esterase 500 H Urine RBC 0-5 SEEN Urine WBC >100 SEEN Ur Squamous Epith Cells 0 SEEN Urine Bacteria 1+ Urine Mucus 0 SEEN Radiography Chest X-Ray - ED: 1 View, Read by ED Physician, Read by Radiologist, Normal, Heart, Lungs, Mediastinum, Bony Structures, No Acute Disease and Chronic Changes Diagnostic Testing: Clinical Impression(s) from Imaging Studies Chest X-Ray 07/16/23 11:59 IMPRESSION: Degenerative changes, as described above. No demonstrated acute cardiopulmonary process. Electronically Signed: Everton Reece MD at 12:34 EST Reading Location ID and State: [facility] / [place] , Service support , Chest x-ray, portable, single view interpreted by myself and the radiologist shows no acute abnormality. Chronic changes. No infiltrates. Normal cardiac silhouette. Discharge Plan Triage Chief Complaint: Confusion ED Provider: Ishmael Kan Dx/Rx/DC Orders Clinical Impression: Urinary tract infection, Dementia, History of BPH Instructions: Urinary Tract Infections in Men Prescriptions: New nitrofurantoin monohyd/m-cryst [Macrobid] 100 mg capsule 100 mg PO BID 10 Days Qty: 20 0RF Rx Instructions: must administer with a meal/food No Action multivitamin 1 EACH tablet 1 ea PO DAILY rosuvastatin 10 MG tablet 10 mg PO DAILY alfuzosin [Uroxatral] 10 MG tablet extended release 24 hr 10 mg PO DAILY docusate sodium [Colace] 100 mg capsule 100 mg PO DAILY Qty: 30 0RF quetiapine 25 mg Tablet 25 mg PO QHS 30 Days Qty: 30 0RF melatonin 10 mg Tablet, Sublingual 10 mg PO QHS 30 Days Qty: 30 0RF cefdinir 300 mg capsule 300 mg PO BID 4 Days Qty: 8 0RF Primary Care Provider: Oneil Foote Referrals: Oneil Foote MD [Primary Care Provider] - As soon as possible Activity Restrictions/Additional Instructions: Plenty of fluids and rest. Macrobid 1 pill twice a day for the urinary tract infection. Try to give him a second dose today around dinnertime. Follow-up with your doctor to ensure he is improving. If he starts looking worse, acting worse or develops a fever and is feeling worse just return he will be admitted. He really does not meet criteria at this time to be admitted hopefully the oral antibiotics will take care of this. Disposition Disposition: Home, Self Care
[2023-07-16] MEDS: 0.9% Normal Saline (500mL Bag) 500 ML 1000 ML IV (11:59)
--- NOTE | 2023-07-16 11:59 | RAD_ITS ---
STUDY: X-RAY CHEST REASON FOR EXAM: Male, 88 years old. confused TECHNIQUE: Single AP portable view of the chest. COMPARISON: June 23, 2023 FINDINGS: 1. No visualized consolidation or infiltrates or pleural effusion 2. Mildly hyperinflated lungs which are currently clear 3. Normal heart size 4. Stable osseous structures 5. Stable mediastinal structures There is no demonstrated abnormality of the visualized soft tissue structures of the upper abdomen. RAD/Chest 1 View (Portable) IMPRESSION: Degenerative changes, as described above. No demonstrated acute cardiopulmonary process. Electronically Signed: Everton Reece MD at 12:34 EST ,
[2023-07-16] MEDS: Ondansetron 4 MG/2 ML Vial IV (12:00)
[2023-07-16 12:03] LABS: Mucous, Urine 0 SEEN /hpf (<or=2+); Squamous Epithelial Cells - UA 0 SEEN /hpf (0-5)
[2023-07-16 12:07] LABS: Absolute Lymphocyte Count 0.76 X10^3/uL (0.83-4.51); Absolute Neutrophil Count 8.2 X10^3/uL (2.0-7.7); Basophil# 0.02 X10^3/uL; Basophil% 0.2 % (0-1); Eosinophil# 0.02 X10^3/uL; Eosinophils% 0.2 % (0-5); Hematocrit 44.2 % (40-54); Hemoglobin 14.3 g/dL (13.0-16.5); Lymphocyte # 0.76 X10^3/ul (0.83-4.51); Lymphocyte % 7.4 % (19-41); Mean Corp Hgb Conc 32.4 g/dL (32-36); Mean Corpuscular Hgb 31.8 pg (27.0-32.0); Mean Corpuscular Volume 98.4 fL (80-94); Mean Platelet Vol. 9.5 fl (6.2-12.0); Monocyte# 1.28 X10^3/uL; Monocyte% 12.4 % (0-10); NRBC Flagged by Analyzer 0 % (0-5); Neutrophil # 8.19 X10^3/uL (2.7-7.7); Neutrophil % 79.3 % (47-70); Platelet Count 132 K/mm3 (150-450); RBC Distribution Width CV 13.2 % (11.6-14.6); RBC Distribution Width SD 48.5 fl (35.1-43.9); Red Blood Count 4.49 M/mm3 (4.6-6.2); White Blood Count 10.3 K/mm3 (4.4-11.0)
[2023-07-16 12:14] LABS: Color, Urine Yellow (Yellow); Glucose, Dipstick Normal (Normal); Ketone-Dipstick 5 mg/dl (Negative); Leukocyte Esterase-Dipstick 500 /ul (Negative); Nitrite-Dipstick Negative (Negative); Occult Blood-Urine 250 /ul (Negative); Protein-Dipstick 100 mg/dl (Negative); Specific Gravity, Urine 1.015 (1.002-1.030); Urine Bilirubin Dipstick Negative (Negative); Urine Clarity Cloudy (Clear); Urine Urobilinogen Normal (Normal); Urine pH 6.5 (5.0 - 8.0)
[2023-07-16 12:24] LABS: AST(SGOT) 14 U/L (15-37); Alanine Aminotransfer ALT/SGPT 22 U/L (16-61); Albumin, Serum 3.3 g/dL (3.2-5.0); Alkaline Phosphatase 95 U/L (45-117); Anion Gap 3 (5-15); BUN 24 mg/dL (7-18); BUN/Creat Ratio 15.8 RATIO (10-20); Calcium,Total 8.8 mg/dL (8.5-10.1); Chloride 108 mmol/L (98-107); Creatinine, Serum 1.52 mg/dL (0.70-1.30); EST Glomerular Filtration Rate 46 mL/min (>60); Est Glom Filt Rate - Afr Amer 56 mL/min (>60); Estimated Creatinine Clearance 39.03 ml/min; Globulin 3.2 g/dL (2.2-4.2); Glucose 141 mg/dL (74-106); Potassium 4.4 mmol/L (3.5-5.1); Protein, Total 6.5 g/dL (6.4-8.2); Sodium Level 140 mmol/L (136-145)
[2023-07-16 12:34] VITALS: BP 123/65; PULSE 80; RESP 20; O2SAT 97
[2023-07-16 12:36] LABS: Bacteria 1+ /hpf (None Seen); Red Blood Cells-Urine 0-5 SEEN /hpf (0-5); White Blood Cells >100 SEEN /hpf (0-5)
--- OUTSIDE RECORDS SUMMARY | 2023-07-16 12:41 | XMS RPT_ITS | CCD ---
Author Name Unknown Address [address] [place] [address] Organization [facility] Care Team Providers Care Ent Nurse Name Role Phone JEAN PICKARD Unavailable Unavailable Dary Oneil Jarocho Unavailable Ebony Garcia Unavailable Unavailable Grey Dasilva PA-C Unavailable Grey Dasilva PA-C Primary Care Provider Grey Dasilva PA-C Unavailable Grey Dasilva PA-C Primary Care Provider Grey Dasilva PA-C Unavailable Grey Dasilva PA-C Primary Care Provider CHEVY CISSE Consulting CHEVY Hurst Attending LLOYD Vences Referring Unava ilable Grey DASILVA Primary Care Unavailable CHEVY CISSE Admitting LLOYD Vences Attending Unava ilable Grey DASILVA Primary Care Unavailable Grey DASILVA Primary Care Unavailable GEOVANY RITCHIE Attending Unavailab le Grey DASILVA Primary Care Unavailable Grey DASILVA Attending Unavailable Grey DASILVA Primary Care Unavailable Grey DASILVA Attending Unavailable Grey DASILVA Attending Unavailable Grey DASILVA Primary Care Unavailable Grey DASILVA Referring Unavailable Grey DASILVA Primary Care Unavailable Grey DASILVA Primary Care Unavailable Grey DASILVA Attending Unavailable Grey DASILVA Referring Unavailable Grey DASILVA Primary Care Unavailable Medications Completed/Discontinued Medications Medication Drug Class(es) Dates Sig (Normalized) Sig (Original) 24 hr alfuzosin hydrochloride 10 mg extended release oral tablet (20 sources) alpha-Adrenergic Ag Start: 09-28-2022 End: 04-28-2023 take 1 tablet by mouth once daily alfuzosin SR (UROXATRAL) 10 mg 24 hr tablet Indications: BPH with obstruction/lower urinary tract symptoms Take 1 tablet by mouth once daily. 90 tablet 3 04/28/2023 Active Problems Active Problems Problem Classification Problem Date Documented Date Episodic/Chronic Acute and unspecified renal failure (1 source) [id number] renal failure; Translations: [Acute kidney failure, unspecified] 07-10-2023 Episodic Coagulation and hemorrhagic disorders (15 sources) Platelet count below reference range; Translations: [Thrombocytopenia, unspecified] Onset: 09-29-2022 09-29-2022 Chronic Diabetes mellitus without complication (1 source) Prediabetes; Translations: [Prediabetes] 07-10-2023 Episodic Disorders of lipid metabolism (20 sources) Hyperlipidemia; Translations: [Hyperlipidemia, unspecified] Onset: 09-09-2010 05-11-2021 Chronic Essential hypertension (20 sources) Essential hypertension; Translations: [Essential (primary) hypertension] Onset: 11-21-2020 Chronic Genitourinary symptoms and ill-defined conditions (1 source) Feeling of incomplete bladder emptying; Translations: [Benign prostatic hyperplasia with incomplete bladder emptying] Onset: 07-14-2023 Episodic Hyperplasia of prostate (20 sources) Benign prostatic hyperplasia; Translations: [Benign prostatic hyperplasia without lower urinary tract symptoms] Onset: 09-09-2010 05-11-2021 Chronic Malaise and fatigue (1 source) Asthenia; Translations: [Weakness] Episodic Occlusion or stenosis of precerebral arteries (20 sources) Bilateral stenosis of carotid arteries; Translations: [Occlusion and stenosis of bilateral carotid arteries] Onset: 10-08-2020 05-25-2021 Chronic Open wounds of extremities (2 sources) Laceration without foreign body of right elbow, initial encounter; Translations: [Laceration without foreign body of right elbow, initial encounter] Onset: 03-10-2023 Episodic Osteoarthritis (20 sources) Osteoarthritis of knee; Translations: [Unilateral primary osteoarthritis, unspecified knee] Chronic Other aftercare (1 source) Post-discharge follow-up; Translations: [Encounter for follow-up examination after completed treatment for conditions other than malignant neoplasm] 07-10-2023 Episodic Other connective tissue disease (1 source) Recurrent falls ; Translations: [Repeated falls] 04-04-2023 Episodic Other diseases of kidney and ureters (1 source) Kidney lesion; Translations: [Unspecified disorder of kidney and ureter] 02-05-2021 Episodic Other fractures (1 source) Fracture of rib; Translations: [Closed fracture of rib(s), unspecified] 02-05-2021 Episodic Other hereditary and degenerative nervous system conditions (13 sources) Cerebral atrophy; Translations: [Degenerative disease of nervous system, unspecified] Onset: 09-29-2022 09-29-2022 Chronic Other hereditary and degenerative nervous system conditions (1 source) Degenerative disease of nervous system, unspecified; Translations: [Brain atrophy (HCC)] Onset: 09-29-2022 Chronic Other liver diseases (1 source) Lesion of liver; Translations: [Other specified disorders of liver] 02-05-2021 Chronic Other lower respiratory disease (2 sources) Dyspnea; Translations: [Shortness of breath] Episodic Other nervous system disorders (20 sources) Communicating hydrocephalus; 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] Onset: 05-25-2021 05-25-2021 Chronic Other nervous system disorders (1 source) Normal pressure hydrocephalus; Translations: [(Idiopathic) normal pressure hydrocephalus] Chronic Other nervous system disorders (1 source) Communicating hydrocephalus; 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)] Onset: 05-25-2021 Chronic Other nervous system disorders (1 source) Other chronic pain; Translations: [Chronic pain of left knee] Onset: 05-11-2017 Chronic Other nervous system disorders (1 source) Impairment of balance; Translations: [Other abnormalities of gait and mobility] Episodic Other nervous system disorders (4 sources) Disorder of fluency; Translations: [Fluency disorder in conditions classified elsewhere] Episodic Other nervous system disorders (1 source) Ataxia; Translations: [Ataxia, unspecified] Episodic Septicemia (except in labor) (1 source) Severe sepsis with acute organ dysfunction due to Enterococcus; Translations: [Sepsis due to Enterococcus] 07-10-2023 Episodic Spondylosis; intervertebral disc disorders; other back problems (20 sources) Degeneration of lumbar intervertebral disc; Translations: [Other intervertebral disc degeneration, lumbar region] Onset: 05-11-2017 05-11-2017 Chronic Spondylosis; intervertebral disc disorders; other back problems (2 sources) Low back pain 02-05-2021 Episodic Past or Other Problems Problem Classification Problem Date Documented Da te Episodic/Chronic Abdominal hernia (16 sources) Hiatal hernia; Translations: [Diaphragmatic hernia without mention of obstruction or gangrene] Onset: 09-29-2022 02-05-2021 Episodic Calculus of urinary tract (20 sources) Kidney stone; Translations: [Calculus of kidney] Onset: 09-09-2010 02-16-2021 Episodic E Codes: Fall (4 sources) Unspecified fall, initial encounter; Translations: [Unspecified fall, initial encounter] Onset: 09-22-2022 Episodic Immunizations and screening for infectious disease (4 sources) Needs influenza immunization; Translations: [Encounter for immunization] Onset: 04-05-2023 Episodic Open wounds of head; neck; and trunk (2 sources) Laceration without foreign body of other part of head, initial encounter; Translations: [Laceration without foreign body of other part of head, initial encounter] Onset: 09-22-2022 Episodic Other and unspecified benign neoplasm (20 sources) Polyp of colon; Translations: [Polyp of colon] Onset: 09-09-2010 09-09-2010 Episodic Other connective tissue disease (1 source) Repeated falls; Translations: [Frequent falls] Onset: 04-05-2023 Episodic Other diseases of kidney and ureters (20 sources) Cyst of kidney; Translations: [Cyst of kidney, acquired] Onset: 02-16-2021 02-16-2021 Episodic Other diseases of kidney and ureters (1 source) Other obstructive and reflux uropathy; Translations: [BPH with obstruction/lower urinary tract symptoms] Onset: 10-21-2021 Episodic Other fractures (4 sources) Multiple fractures of ribs, left side, initial encounter for closed fracture; Translations: [Multiple fractures of ribs, left side, initial encounter for closed fracture] Onset: 09-22-2022 Episodic Other lower respiratory disease (2 sources) Hypoxemia; Translations: [Hypoxemia] Onset: 09-22-2022 Episodic Other nervous system disorders (1 source) Fluency disorder in conditions classified elsewhere; Translations: [Fluency disorder associated with underlying disease] Onset: 04-05-2023 Episodic Other non-traumatic joint disorders (1 source) Pain in right knee; Translations: [Pain in right knee] Onset: 07-05-2017 Episodic Other non-traumatic joint disorders (20 sources) Pain in left knee; Translations: [Pain in joint, lower leg] Onset: 05-11-2017 05-11-2017 Episodic Other non-traumatic joint disorders (20 sources) Hip pain; Translations: [Pain in left hip] Onset: 05-11-2017 05-11-2017 Episodic Other screening for suspected conditions (not mental disorders or infectious disease) (20 sources) Raised prostate specific antigen; Translations: [Elevated prostate specific antigen [PSA]] Onset: 12-26-2014 05-25-2021 Episodic Pleurisy; pneumothorax; pulmonary collapse (4 sources) Hemothorax; Translations: [Hemothorax] Onset: 09-22-2022 Episodic Results Test Name Value Interpretation Reference Range Facil ity Vital Signs Date Time Vital Sign Value Performing Clinician Faci lity 07-07-2023 17:05-0500 Body weight 77.11 kg NA Dasilva PA-C Work Phone: [facility] 07-07-2023 17:05-0500 Diastolic blood pressure 64 mm[Hg] NA Dasilva PA-C Work Phone: [facility] 07-07-2023 17:05-0500 Heart rate 97 /min NA Dasilva PA-C Work Phone: [facility] 07-07-2023 17:05-0500 Respiratory rate 16 /min NA Dasilva PA-C Work Phone: [facility] 07-07-2023 17:05-0500 SaO2% (BldA) [Mass fraction] 95 % NA Dasilva PA-C Work Phone: [facility] 07-07-2023 17:05-0500 Systolic blood pressure 113 mm[Hg] NA Dasilva PA-C Work Phone: [facility] 04-05-2023 15:07-0500 Body temperature 98.8 [degF] NA Dasilva PA-C Work Phone: [facility] 04-05-2023 15:07-0500 Body weight 78.93 kg NA Dasilva PA-C Work Phone: [facility] 04-05-2023 15:07-0500 Diastolic blood pressure 56 mm[Hg] NA Dasilva PA-C Work Phone: [facility] 04-05-2023 15:07-0500 Heart rate 97 /min NA Dasilva PA-C Work Phone: [facility] 04-05-2023 15:07-0500 Respiratory rate 16 /min NA Dasilva PA-C Work Phone: [facility] 04-05-2023 15:07-0500 SaO2% (BldA) [Mass fraction] 97 % NA Dasilva PA-C Work Phone: [facility] 04-05-2023 15:07-0500 Systolic blood pressure 124 mm[Hg] NA Dasilva PA-C Work Phone: [facility] 04-09-2022 08:51-0500 Body height 184.2 cm Respiratory Wstr Work Phone: [facility] 04-09-2022 08:51-0500 Body weight 81.65 kg Respiratory Wstr Work Phone: [facility] 03-23-2022 16:05-0500 Body weight 81.74 kg NA Dasliva PA-C Work Phone: [facility] 03-23-2022 16:05-0500 Diastolic blood pressure 62 mm[Hg] NA Dasilva PA-C Work Phone: [facility] 03-23-2022 16:05-0500 Heart rate 94 /min NA Dasilva PA-C Work Phone: [facility] 03-23-2022 16:05-0500 Respiratory rate 20 /min NA Dasilva PA-C Work Phone: [facility] 03-23-2022 16:05-0500 SaO2% (BldA) [Mass fraction] 96 % NA Dasilva PA-C Work Phone: [facility] 03-23-2022 16:05-0500 Systolic blood pressure 128 mm[Hg] NA Dasilva PA-C Work Phone: [facility] 10-20-2021 09:16-0400 Body weight 83.92 kg NA Dasilva PA-C Work Phone: [facility] 10-20-2021 09:16-0400 Diastolic blood pressure 66 mm[Hg] NA Dasilva PA-C Work Phone: [facility] 10-20-2021 09:16-0400 Heart rate 95 /min NA Dasilva PA-C Work Phone: [facility] 10-20-2021 09:16-0400 Respiratory rate 16 /min NA Dasilva PA-C Work Phone: [facility] 10-20-2021 09:16-0400 SaO2% (BldA) [Mass fraction] 94 % NA Dasilva PA-C Work Phone: [facility] 10-20-2021 09:16-0400 Systolic blood pressure 118 mm[Hg] NA Dasilva PA-C Work Phone: [facility] 02-05-2021 21:30-0400 Diastolic blood pressure 91 mm[Hg] Oneil Kango Other Phone: [facility] 02-05-2021 21:30-0400 Heart rate 82 /min Oneil Dary Other Phone: [facility] 02-05-2021 21:30-0400 Respiratory rate 16 /min Oneil Foote Other Phone: [facility] 02-05-2021 21:30-0400 SaO2% (BldA) [Mass fraction] 92 % Oneil Foote Other Phone: [facility] 02-05-2021 21:30-0400 Systolic blood pressure 155 mm[Hg] Oneil Foote Other Phone: [facility] 02-05-2021 18:05-0400 Body height 187.9 cm Oneil Foote Other Phone: [facility] 02-05-2021 18:05-0400 Body temperature 98.6 [degF] Oneil Foote Other Phone: [facility] 02-05-2021 18:05-0400 Body weight 91 kg Oneil Foote Other Phone: [facility] Encounters Encounter Date Encounter Type Care Provider Facility Start: 07-14-2023 End: 07-14-2023 ambulatory Grey DASILVA Facility:[facility] Start: 07-14-2023 End: 07-14-2023 Subsequent hospital visit by physician [facility] Work Phone: Radiology Procedures Date Procedure Procedure Detail Performing Clinician Start: 07-14-2023 Us pelvic nonobstetr ic image dcmtn limited/f/u Grey Dasilva PA-C Work Phone: Start: 04-05-2023 INFLUENZA VACCINE, P RSV FREE, AGE 65+ YR, HIGH DOSE, QUADRIVALENT (FLUZONE HIGH-DOSE) Grey Dasilva PA-C Work Phone: Start: 04-05-2023 PFIZER-BIONTECH COVI D-19 VACCINE ( SEASON) AGE 12+ YR Grey Dasilva PA-C Work Phone: Start: 04-09-2022 Spmtry w/vc expirato ry michele w/wo mxml vol vntj Grey Dasilva PA-C Work Phone: Start: 03-23-2022 INFLUENZA SEASONAL QUADRIVALENT HIGH DOSE AGE 65+ M Abram Dasilva PA-C Work Phone: Start: 03-23-2022 PFIZER-BIONTECH COVI D-19 BIVALENT BOOSTER VACCINE, AGE 12+ YR Grey Dasilva PA-C Work Phone: Plan of Treatment Date Care Activity Detail Author Start: 05-15-2028 Urine microalbumin profile [facility] Start: 04-14-2026 Diabetes Screening Diabetes Screening [facility] Start: 03-25-2025 DIABETES SCREEN DIABETES SCREEN [facility] Start: 03-25-2025 Diabetes Screening Diabetes Screening [facility] Start: 08-07-2024 DIABETES SCREEN DIABETES SCREEN [facility] Start: 11-22-2023 DIABETES SCREEN DIABETES SCREEN [facility] Start: 09-23-2023 End: 12-23-2023 Basic metabolic 2000 panel - Serum or Plasma BASIC METABOLIC PNL Lab Routine Acute renal failure superimposed on stage 3a chronic kidney disease, unspecified acute renal failure type (HCC) Expected: 09/23/2023, Expires: 12/23/2023 [facility] Work Phone: Immunizations Immunization Date Immunization Notes Care Provider Aishwarya prasad 04-05-2023 COVID-19 vaccine, ag e 12+ yr, season (PFIZER-BIONTECH) NA Dasilva PA-C Work Phone: [facility] 04-05-2023 influenza (HD-IIV4) vaccine, age 65+ yr, high dose, quadrivalent, PF (FLUZONE HIGH-DOSE) NA Dasilva PA-C Work Phone: [facility] 03-23-2022 COVID-19 booster vaccine, age 12+ yr, bivalent (PFIZER-BIONTECH) NA Dasilva PA-C Work Phone: [facility] 03-23-2022 influenza, high-dose , quadrivalent vaccine (FLUZONE HIGH DOSE QUADRIVALENT) NA Dasilva PA-C Work Phone: [facility] 02-09-2021 influenza, high-dose , quadrivalent vaccine (FLUZONE HIGH DOSE QUADRIVALENT) NA Dasilva PA-C Work Phone: [facility] 07-04-2020 COVID-19 vaccine, ag e 12+ yr (PFIZER-BIONTECH - PURPLE TOP) NA Dasilva PA-C Work Phone: [facility] 06-13-2020 COVID-19 vaccine, ag e 12+ yr (PFIZER-BIONTECH - PURPLE TOP) NA Dasilva PA-C Work Phone: [facility] 01-28-2020 influenza, high-dose , quadrivalent vaccine (FLUZONE HIGH DOSE QUADRIVALENT) NA Dasilva PA-C Work Phone: [facility] 03-07-2019 influenza, high dose seasonal, preservative-free NA Dasilva PA-C Work Phone: [facility] 05-15-2018 tetanus toxoid, redu sudhakar diphtheria toxoid, and acellular pertussis vaccine, adsorbed NA Dasilva PA-C Work Phone: [facility] 2018 influenza, injectabl e, quadrivalent, preservative free NA Dasilva PA-C Work Phone: [facility] 2018 influenza, seasonal, injectable NA Dasilva PA-C Work Phone: [facility] 02-05-2016 influenza, high dose seasonal, preservative-free NA Dasilva PA-C Work Phone: [facility] 04-02-2015 influenza, high dose seasonal, preservative-free NA Dasilva PA-C Work Phone: [facility] Work Phone: 09-13-2014 pneumococcal conjuga te vaccine, 13 valent NA Dasilva PA-C Work Phone: [facility] 05-03-2013 influenza virus vacc ine, unspecified formulation NA Dasilva PA-C Work Phone: [facility] Work Phone: 09-09-2010 pneumococcal polysaccharide vaccine, 23 valent NA Dasilva PA-C Work Phone: [facility] Work Phone: 11-11-2008 tetanus and diphther ia toxoids, adsorbed, preservative free, for adult use (2 Lf of tetanus toxoid and 2 Lf of diphtheria toxoid) NA Dasilva PA-C Work Phone: [facility] Work Phone: 11-11-2008 tetanus toxoid, adsorbed NA Dasilva PA-C Work Phone: [facility] Payers Date Payer Category Payer Unknown 2020 Unknown MMO MMO MEDICARE SUPPLEMENT [id number] 2020-Present [phone] [address] [place] [address] Indemnity [id number] 2020 Unknown [id number] 2002 Medicare MEDICARE MEDICAR E A AND B [id number] 2002-Present [phone] [address] [address] [place] [address] Medicare [id number] 2002 Medicare MEDICARE MEDICAR E A AND B [id number] 2002-Present [phone] [place] [address] Medicare [id number] 2002 Medicare [id number] 1937 Unknown [id number] 1937 Unknown [id number] 1937 Unknown [id number] Social History Date Type Detail Facility [facility] Tobacco smoking consumption unknown [facility] Start: 09-09-2010 End: 08-24-2011 Tobacco smoking status NHIS Never smoked tobacco [facility] Work Phone: Start: 09-09-2010 End: 08-24-2011 Tobacco use and exposure Smokeless tobacco non-user [facility] Work Phone: Start: 07-16-2021 End: 07-07-2023 Alcohol intake Current drinker of alcohol (finding) [facility] Start: 07-16-2021 End: 09-28-2022 Alcohol intake [facility] Start: 1935 Sex Assigned At Not on file [facility] Start: 06-16-2021 End: 03-23-2022 Exposure to SARS-CoV-2 (event) Not sure [facility] Start: 07-12-2019 End: 09-28-2022 Tobacco use panel [facility] Adult Depression Screening Assessment 0 [facility] Clinical Notes 09-09-2010 to 07-14-2023 [facility] - 07/14/2023 1:45 PM Grey Bradley PA-C - 07/07/2023 5:00 PM ESTTelephone Encounter - Blanche Grullon RN - 06/27/2023 12:23 PM Venessa Nieves Ma - 06/27/2023 9:30 AM EST Note Date & Type Note Facility 07-14-2023 Note HNO ID: [id number] Author: [facility]MS Service: ? Author Type: Die Cast Supervisor Type: Progress Notes Filed: 07/14/2023 14:56 Note Text: Radiology Service Progress Note PATIENT NAME: Chevy Lion DATE OF SERVICE: July 14, 2023 TIME: 2:56 PM PATIENT IDENTITY VERIFICATION COMPLETED USING TWO (2) IDENTIFIERS: Name and Date of confirmed by patient verbally. FALL SCREENING: Has the patient had 2 falls in the last year or 1 fall with injury or currently using an Ambulatory Assistive Device (Walker, Cane, Wheelchair, Crutches, etc.)? Yes, Patient High Risk for Falls What interventions were put in place to prevent falls during this visit? Instructed Patient to Call for Help if Needed, Offered Assistance with Transfers/Clothing, Instructed Patient to Remain Seated (Not on Exam Table) Until Exam, Increased Observations by Caregivers, and Escorted to/from Restroom PATIENT GENDER DATA: Male PATIENT RELEVANT IMPLANT DATA REVIEWED: Not Applicable PATIENT PRESENTS WITH AN IMPLANTABLE OR ATTACHED REAL ESTATE AGENT/BROKER: No RADIOLOGY DEPARTMENT: Ultrasound PERIPHERAL IV DATA: Not applicable SIGNED BY: [facility] RDMS RVT July 14, 2023 2:56 PM [facility] 07-14-2023 History of Presen t illness Narrative Radiology Service Progress Note PATIENT NAME: Chevy iLon DATE OF SERVICE: July 14, 2023 TIME: 2:56 PM PATIENT IDENTITY VERIFICATION COMPLETED USING TWO (2) IDENTIFIERS: Name and Date of confirmed by patient verbally. FALL SCREENING: Has the patient had 2 falls in the last year or 1 fall with injury or currently using an Ambulatory Assistive Device (Walker, Cane, Wheelchair, Crutches, etc.)? Yes, Patient High Risk for Falls What interventions were put in place to prevent falls during this visit? Instructed Patient to Call for Help if Needed, Offered Assistance with Transfers/Clothing, Instructed Patient to Remain Seated (Not on Exam Table) Until Exam, Increased Observations by Caregivers, and Escorted to/from Restroom PATIENT GENDER DATA: Male PATIENT RELEVANT IMPLANT DATA REVIEWED: Not Applicable PATIENT PRESENTS WITH AN IMPLANTABLE OR ATTACHED REAL ESTATE AGENT/BROKER: No RADIOLOGY DEPARTMENT: Ultrasound PERIPHERAL IV DATA: Not applicable SIGNED BY: Mt [facility]annon RDMS RVT July 14, 2023 2:56 PM documented in this encounter [facility] 07-07-2023 Note HNO ID: [id number] Author: Grey DASILVA PA-C Service: ? Author Type: Physician Tinning Machine Set Up Operator Type: Progress Notes Filed: 07/10/2023 10:55 Note Text: Transitional Care Management TCM Eligibility Documentation The following information was gathered during patient outreach Date of Outreach: 06/27/2023 Outreach Attempt 1: Contact Made Date of Discharge 06/25/2023 Some recent data might be hidden Provider Documentation Chevy Lion is a 88 year old male here today for a follow up from recent hospitalization. I have reviewed the patient's hospital course including discharge summary, discharge medications , and follow up needs with the patient and any family members present at today's visit. Hospital discharge follow-up Facility: [facility]: Admission date: 06/23/2023 Discharge date: 06/25/2019 Discharge diagnoses: 1. Acute encephalopathy, metabolic/infectious secondary to acute complicated urinary tract infection w/ mixed gram-positive and gram-negative organisms) with associated agitation 2. Advancement of underlying chronic kidney disease to stage III unclear subtype with prior chart evidence of CKD stage II 3. Dysphagia, frequent coughing with meals noted: consider outpatient ST eval 4. Coagulopathy, suspected lab error, normalized 5. Mild thrombocytopenia, chronic, unclear etiology 6. Prediabetes with A1c 5.7% 7. Hyperlipidemia 8. Chronic BPH with obstructive history 9. CODE STATUS DNR CCA, no intubation Medication reconciliation: New medications: Quetiapine 25 mg p.o. nightly, #30/0: daughter did not continue Melatonin 10 mg tablet sublingual daily at bedtime, #30/0: daughter did not continue: states sleeping well Cefdinir 300 mg capsule p.o. twice daily, #8/0 completed Continued medications: Multivitamin daily Rosuvastatin 10 mg daily at bedtime Alfuzosin 10 mg 24-hour release daily Docusate sodium 100 mg capsule daily, #30/0 Hospital course: Admitted to 01/03/2024 after arrival to [facility] emergency department with dementia unclear etiology with behavioral disturbance history, frequent falls living at home with daughter usually takes care of the patient. Patient had been in his normal baseline previously going to bed the night for, reportedly fell out of bed approximately 3 AM which prompted concerns from his daughter. Vital signs on admission: 99.9 T-217-03-120/68-96% RA CBC with WBC of 15.4-Hgb 15.2-PLT 143 with left shift with lymphopenia. Coags appear to high with PT 33.9, INR 3.3 but on rechecking was normal, believed to be an error BUN/creatinine 26/1.4-glucose 164-lactic acid 1.5, hepatic profile within normal limits except total bilirubin of 1.20. Urine appeared cloudy, specific gravity 1.015, protein 100, ketones 15, occult blood 150 with positive nitrite, demonstrating 10-25 RBCs, 25-50 WBCs 1+ bacteria. Unfortunately culture came back with mixed gram-positive and gram-negative organisms indicating possible contaminant. Blood culture x 2, SARS-CoV/influenza/RSV, negative Chest x-ray with increased markings in the left lung base suggestive of atelectasis or scarring CT brain demonstrated chronic involutional changes EKG normal sinus rhythm with PACs Admitted MedSurg with continued IV fluids, IV Rocephin, treated with Seroquel nightly for agitation Additional melatonin which seems to calm patient. Glucose elevated 164 on admission, hemoglobin A1c returned at 5.7. 06/24/2023 BUN/creatinine 26/1.34 with 06/25/2023 BUN/creatinine: 28/1.29 indicating stage III transition. Speech therapy was initiated due to reports of cough with eating: Recommendations for supervision, small bites, routine fluid-food, upright 30 minutes position after eating. Consults were made to PT, OT on discharge planning for home. Patient was discharged home with daughter with prescription for oral antibiotics. Discharge weight 174 pounds 9.6 ounces, BMI 23.1 06/25/2023 CBC: WBC 8.1-Hgb 13.9-HCT 42.0-PLT 120 L 06/25/2023 chemistries: NA 141-CL 110 H-K3.9-CO2 27.0-BUN 28 H-CRE 1.29, EGFR 56-GLU 108H Current concerns: Doing well, daughters feel at baseline. 2-3 nocturia Stream is fairly strong, occasional intermittency and post void and urge dribbling if does get to BR in time Lays down has to go again suggesting incomplete bladder emptying PSA Date Value 11/07/2014 4.23 ng/mL 01/27/2011 3.8 NG/ML 09/27/2008 3.6 NG/ML 09/04/2008 4.1 NG/ML PSA Screening (NG/ML) Date Value 09/24/2009 3.4 FAMILY HISTORY Problem Relation Age of Onset Colon Cancer Other none Coronary Artery Disease Other none Diabetes Other none Arthritis Sister lupus other (TB) Mother other (TB) Sister PAST MEDICAL HISTORY Diagnosis Date Arthritis of knee, degenerative bilateral BPH (benign prostatic hyperplasia) Colon polyps Hyperlipidemia Kidney stones Tennis elbow bilateral Thyroid nodule 02/09/2021 3 mm (more content not included)... [facility] 07-07-2023 History of Presen t illness Narrative Transitional Care Management TCM Eligibility Documentation The following information was gathered during patient outreach Date of Outreach: 06/27/2023 Outreach Attempt 1: Contact Made Date of Discharge 06/25/2023 Some recent data might be hidden Provider Documentation Chevy Lion is a 88 year old male here today for a follow up from recent hospitalization. I have reviewed the patient's hospital course including discharge summary, discharge medications , and follow up needs with the patient and any family members present at today's visit. Hospital discharge follow-up Facility: [facility]: Admission date: 06/23/2023 Discharge date: 06/25/2019 Discharge diagnoses: 1. Acute encephalopathy, metabolic/infectious secondary to acute complicated urinary tract infection w/ mixed gram-positive and gram-negative organisms) with associated agitation 2. Advancement of underlying chronic kidney disease to stage III unclear subtype with prior chart evidence of CKD stage II 3. Dysphagia, frequent coughing with meals noted: consider outpatient ST eval 4. Coagulopathy, suspected lab error, normalized 5. Mild thrombocytopenia, chronic, unclear etiology 6. Prediabetes with A1c 5.7% 7. Hyperlipidemia 8. Chronic BPH with obstructive history 9. CODE STATUS DNR CCA, no intubation Medication reconciliation: New medications: Quetiapine 25 mg p.o. nightly, #30/0: daughter did not continue Melatonin 10 mg tablet sublingual daily at bedtime, #30/0: daughter did not continue: states sleeping well Cefdinir 300 mg capsule p.o. twice daily, #8/0 completed Continued medications: Multivitamin daily Rosuvastatin 10 mg daily at bedtime Alfuzosin 10 mg 24-hour release daily Docusate sodium 100 mg capsule daily, #30/0 Hospital course: Admitted to 01/03/2024 after arrival to [facility] emergency department with dementia unclear etiology with behavioral disturbance history, frequent falls living at home with daughter usually takes care of the patient. Patient had been in his normal baseline previously going to bed the night for, reportedly fell out of bed approximately 3 AM which prompted concerns from his daughter. Vital signs on admission: 99.9 O-268-94-120/68-96% RA CBC with WBC of 15.4-Hgb 15.2-PLT 143 with left shift with lymphopenia. Coags appear to high with PT 33.9, INR 3.3 but on rechecking was normal, believed to be an error BUN/creatinine 26/1.4-glucose 164-lactic acid 1.5, hepatic profile within normal limits except total bilirubin of 1.20. Urine appeared cloudy, specific gravity 1.015, protein 100, ketones 15, occult blood 150 with positive nitrite, demonstrating 10-25 RBCs, 25-50 WBCs 1+ bacteria. Unfortunately culture came back with mixed gram-positive and gram-negative organisms indicating possible contaminant. Blood culture x 2, SARS-CoV/influenza/RSV, negative Chest x-ray with increased markings in the left lung base suggestive of atelectasis or scarring CT brain demonstrated chronic involutional changes EKG normal sinus rhythm with PACs Admitted MedSur with continued IV fluids, IV Rocephin, treated with Seroquel nightly for agitation Additional melatonin which seems to calm patient. Glucose elevated 164 on admission, hemoglobin A1c returned at 5.7. 06/24/2023 BUN/creatinine 26/1.34 with 06/25/2023 BUN/creatinine: 28/1.29 indicating stage III transition. Speech therapy was initiated due to reports of cough with eating: Recommendations for supervision, small bites, routine fluid-food, upright 30 minutes position after eating. Consults were made to PT, OT on discharge planning for home. Patient was discharged home with daughter with prescription for oral antibiotics. Discharge weight 174 pounds 9.6 ounces, BMI 23.1 06/25/2023 CBC: WBC 8.1-Hgb 13.9-HCT 42.0-PLT 120 L 06/25/2023 chemistries: NA 141-CL 110 H-K3.9-CO2 27.0-BUN 28 H-CRE 1.29, EGFR 56-GLU 108H Current concerns: Doing well, daughters feel at baseline. 2-3 nocturia Stream is fairly strong, occasional intermittency and post void and urge dribbling if does get to BR in time Lays down has to go again suggesting incomplete bladder emptying PSA Date Value 11/07/2014 4.23 ng/mL 01/27/2011 3.8 NG/ML 09/27/2008 3.6 NG/ML 09/04/2008 4.1 NG/ML PSA Screening (NG/ML) Date Value 09/24/2009 3.4 FAMILY HISTORY Problem Relation Age of Onset Colon Cancer Other none Coronary Artery Disease Other none Diabetes Other none Arthritis Sister lupus other (TB) Mother other (TB) Sister PAST MEDICAL HISTORY Diagnosis Date Arthritis of knee, degenerative bilateral BPH (benign prostatic hyperplasia) Colon polyps Hyperlipidemia Kidney stones Tennis elbow bilateral Thyroid nodule 02/09/2021 3 mm RIGHT thyroid nodule.Location: Right lower pole Size: 3 x 2 x 2 mm, Solid or almost completely solid, Hypoechoic, Echogenic foci: Peripheral (rim) calcification. TR 4 No FNA or follow-up. PAST SURGICAL HISTORY Procedure Laterality Date COLONOSCOPY & POLYPECTOMY 10/2014 polyps COLONOSCOPY FLX DX W/COLLJ SPEC WHEN PFRMD 2005,2009, 12/15/2017 Transverse Colon Polyp, Beals NEUROPLASTY &/TRANSPOS MEDIAN NRV CARPAL TUNNE 1994 Carpal tunnel decomp Left [facility] OPEN REPAIR OF ROTATOR CUFF ACUTE 1992 Rotator cuff repair Right at [facility] Social History Tobacco Use Smoking status: Never Smokeless tobacco: Never Substance Use Topics Alcohol use: Yes Alcohol/week: 2.0 standard drinks of alcohol Types: 2 Cans of Beer (12oz) per week Drug use: No ACTIVE PROBLEM LIST Colon Polyps Hyperlipidemia Kidney Stones Bph With Obstruction/Lower Urinary Tract Symptoms Arthritis of Knee, Degenerative Elevated Prostate Specific Antigen (Psa) Degeneration of Lumbar Intervertebral Disc Chronic Pain of Left Knee Pain in Left Hip Bilateral Carotid Artery Stenosis Essential Hypertension Thyroid Nodule Bilateral Renal Cysts Communicating Hydrocephalus (Hcc) Brain Atrophy (Hcc) Hiatal Hernia Platelets Decreased (Hcc) Current Outpatient Medications Medication Sig Dispense Refill cefdinir (OMNICEF) 300 mg capsule QUEtiapine (SEROQUEL) 25 mg tablet Take 1 tablet by mouth once daily. alfuzosin SR (UROXATRAL) 10 mg 24 hr tablet Take 1 tablet by mouth once daily. 90 tablet 3 rosuvastatin (CRESTOR) 10 mg tablet Take 1 tablet by mouth once daily. 90 tablet 3 OTC NUTRITIONAL SUPPLEMENT 1 tablet once daily. Prevagen (Patient not taking: Reported on 04/05/2023) multivitamin tablet Take 1 tablet by mouth once daily. 0 No current facility-administered medications for this visit. Shingrix Vaccine(1 of 2) Never done RSV Vaccine(1 - 1-dose 60+ series) Never done Advance Directive Discussion due on 05/16/2023 Depression Assessment Never done EXAM: BP 113/64 Pulse 97 Resp 16 Wt 77.1 kg (170 lb) SpO2 95% BMI 22.74 kg/m Pleasant older man in no acute distress. Alert and oriented all spheres. Normal affect and cognition. Speech normal. No deficits to learning or comprehension. Skin warm, dry, pink to lips and nailbeds. Normal turgor. Respirations regular and unlabored. HEENT: NCAT. No scleral icterus or conjunctival injection. TM's clear. Nose and oropharynx free from injection or lesion. Oral membranes moist and pink. No cervical lymph nodes. Thyroid non-tender, no masses, or enlargement. Carotids pulses 2+/4+ without bruits. No JVD with HOB at 30 degrees. Chest is normal shape. Lungs are clear to all dubose with good air exchange through out. HRRR without murmur or gallop. No lifts, heaves, or rubs. morbidly obese which makes exam difficult Extrem: no clubbing or cyanosis. Edema: none. Extremities are warm and pink with prompt capillary refill. Neurologically he is at his baseline. Quick and cheerful answers, slightly pressure speech, moves quickly with forward leaning gait, slightly wide based. ASSESSMENT/PLAN: 1. Hospital discharge follow-up - ICD9: V67.59, ICD10: Z09 (primary diagnosis) Updated problem list Completed medication reconciliation 2. Sepsis due to urinary tract infection with acute renal failure and metabolic encephalopathy (HCC) - ICD9: 038.0, 995.92, 584.9, 348.31, ICD10: A41.81, R65.20, N17.9, G93.41 resolved 3. Acute renal failure superimposed on stage 3a chronic kidney disease, unspecified acute renal failure type (HCC) - ICD9: 584.9, 585.3, ICD10: N17.9, N18.31 Needs follow up until at baseline Avoid medications with potential renal toxicicty, push fluids - BASIC METABOLIC PNL 4. 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 Platelets decreased (HCC) - ICD9: 287.5, ICD10: D69.6 Continue to follow - CBC + DIFF 6. Prediabetes - ICD9: 790.29, ICD10: R73.03 Continue to monitor 7. Benign prostatic hyperplasia with incomplete bladder emptying - ICD9: 600.01, 788.21, ICD10: N40.1, R39.14 Schedule: - US PELVIS BLADDER - PSA/PROSTSPECAG DIAG F/u 3 months or as needed Grey Dasilva PA-C documented in this encounter [facility] 06-27-2023 Note Patient Outreach (FA MPWS) AMISHACHEVY oRslyn ([id number]) 1935 M Date Time Provider Department 06/27/23 VENESSA HAMMONDS During your visit today, we recorded the following information about you: Venessa Hammonds Ma 06/27/2023 9:51 AM Signed TRANSITION CARE MANAGEMENT (TCM) INITIAL CONTACT Sprinkler Tender Outreach Provider Action/FYI: [facility] Home health speech and PT following patient. Initial contact with patient post discharge, spoke to daughter. Patient identified by name and . TRANSITION CARE MANAGEMENT INITIAL OUTREACH DOCUMENTATION: Date of Outreach: 06/27/2023 Outreach Attempt 1: Contact Made Date of Discharge 06/25/2023 Some recent data might be hidden SUMMARY: -Pt discharged from [facility] on 06/25/23. -Admitted for: Metabolic Encephalopathy Do you have a hospital follow up appointment with your PCP? Appointment on 07/07/23 with Ken Dasilva. Yes. Remind patient of appointment date, time, and location. If not within 14 calendar days of discharge - please reschedule accordingly. MEDICATIONS: Many patients have questions or concerns about their medications once they are home. Were you prescribed any new medications? Yes If yes, what are those medications? Quentiapine 25 mg, Melatonin 10 mg, cefdinir 300 mg Were you told to hold any medications? No Were any of your medications discontinued? No Do you have any questions about getting or taking your medications? No Your discharge instructions/After visit Summary (AVS) are important in guiding you through the recovery process. Is there anything I might help you understand? No Do you have all the necessary equipment and supplies at home? Yes Medical records from recent hospitalization: Placed for provider to review Venessa Hammonds Ma Allergies As of Date: 06/27/2023 (No Known Allergies) Date Reviewed: 04/05/2023 Reviewed by: Venessa Hammonds Ma - Fully Assessed Reason for Visit: Transition Of Care [4074] Prescriptions as of 06/27/2023 - cefdinir (OMNICEF) 300 mg capsule - QUEtiapine (SEROQUEL) 25 mg tablet Take 1 tablet by mouth once daily. - alfuzosin SR (UROXATRAL) 10 mg 24 hr tablet Take 1 tablet by mouth once daily. - rosuvastatin (CRESTOR) 10 mg tablet Take 1 tablet by mouth once daily. - OTC NUTRITIONAL SUPPLEMENT 1 tablet once daily. Prevagen - multivitamin tablet Take 1 tablet by mouth once daily. Problem List As Of Date 06/27/2023 Noted Resolved Routine general medical examination at [facility]*09/09/2010 05/26/2015 Class: Chronic Colon polyps [K63.5] 09/09/2010 Hyperlipidemia [E78.5] 09/09/2010 Kidney stones [N20.0] 09/09/2010 Tennis elbow [M77.10] 09/09/2010 05/26/2015 BPH with obstruction/lower urinary tract sympto*09/09/2010 Arthritis of knee, degenerative [M17.9] Elevated prostate specific antigen (PSA) [R97.2*12/26/2014 Degeneration of lumbar intervertebral disc [M51*05/11/2017 Chronic pain of left knee [M25.562, G89.29] 05/11/2017 Pain in left hip [M25.552] 05/11/2017 Bilateral carotid artery stenosis [I65.23] 10/08/2020 Essential hypertension [I10] 11/21/2020 Thyroid nodule [E04.1] 02/09/2021 Bilateral renal cysts [N28.1] 02/16/2021 Communicating hydrocephalus (HCC) [G91.0] 05/25/2021 Brain atrophy (HCC) [G31.9] 09/29/2022 Hiatal hernia [K44.9] 09/29/2022 Platelets decreased (HCC) [D69.6] 09/29/2022 Encounter Status:Closed by VENESSA HAMMONDS MA on 06/27/23 [facility] 06-27-2023 Miscellaneous Notes Karol from [facility] HH PT calling with plan of care. Does not need a call back unless necessary. 3x/wk for 1 wk 2x/wk for 3 wks For strengthening, safety, gait transfers and training. documented in this encounter [facility] 06-27-2023 Note HNO ID: [id number] Author: ?, ?, ? Service: ? Author Type: ? Type: Progress Notes Filed: 06/27/2023 09:51 Note Text: TRANSITION CARE MANAGEMENT (TCM) INITIAL CONTACT Sprinkler Tender Outreach Provider Action/FYI: [facility] Home health speech and PT following patient. Initial contact with patient post discharge, spoke to daughter. Patient identified by name and . TRANSITION CARE MANAGEMENT INITIAL OUTREACH DOCUMENTATION: Date of Outreach: 06/27/2023 Outreach Attempt 1: Contact Made Date of Discharge 06/25/2023 Some recent data might be hidden SUMMARY: -Pt discharged from [facility] on 06/25/23. -Admitted for: Metabolic Encephalopathy Do you have a hospital follow up appointment with your PCP? Appointment on 07/07/23 with Ken Dasilva. Yes. Remind patient of appointment date, time, and location. If not within 14 calendar days of discharge - please reschedule accordingly. MEDICATIONS: Many patients have questions or concerns about their medications once they are home. Were you prescribed any new medications? Yes If yes, what are those medications? Quentiapine 25 mg, Melatonin 10 mg, cefdinir 300 mg Were you told to hold any medications? No Were any of your medications discontinued? No Do you have any questions about getting or taking your medications? No Your discharge instructions/After visit Summary (AVS) are important in guiding you through the recovery process. Is there anything I might help you understand? No Do you have all the necessary equipment and supplies at home? Yes Medical records from recent hospitalization: Placed for provider to review Venessa Kathi Stone [facility] 06-27-2023 History of Presen t illness Narrative TRANSITION CARE MANAGEMENT (TCM) INITIAL CONTACT Sprinkler Tender Outreach Provider Action/FYI: [facility] Home health speech and PT following patient. Initial contact with patient post discharge, spoke to daughter. Patient identified by name and . TRANSITION CARE MANAGEMENT INITIAL OUTREACH DOCUMENTATION: Date of Outreach: 06/27/2023 Outreach Attempt 1: Contact Made Date of Discharge 06/25/2023 Some recent data might be hidden SUMMARY: -Pt discharged from [facility] on 06/25/23. -Admitted for: Metabolic Encephalopathy Do you have a hospital follow up appointment with your PCP? Appointment on 07/07/23 with Ken Dasilva. Yes. Remind patient of appointment date, time, and location. If not within 14 calendar days of discharge - please reschedule accordingly. MEDICATIONS: Many patients have questions or concerns about their medications once they are home. Were you prescribed any new medications? Yes If yes, what are those medications? Quentiapine 25 mg, Melatonin 10 mg, cefdinir 300 mg Were you told to hold any medications? No Were any of your medications discontinued? No Do you have any questions about getting or taking your medications? No Your discharge instructions/After visit Summary (AVS) are important in guiding you through the recovery process. Is there anything I might help you understand? No Do you have all the necessary equipment and supplies at home? Yes Medical records from recent hospitalization: Placed for provider to review Venessa Hammonds Ma documented in this encounter [facility] 06-24-2023 Miscellaneous Notes Verbal order given to Cori. Please help pt set up hospital f/u Ok. Will need hospital follow up with Ken Cori from [facility] HH calls and states that patient was discharged from [facility] with the diagnosis of metabolic encephalopathy and UTI. Cori asking if provider willing to follow patient with orders for physical therapy, speech therapy. Patient refused senior care. If agreeable please give Cori a call back . Thank you, Soco Bolton RN documented in this encounter [facility] 06-23-2023 Miscellaneous Notes FYI: Family called to let you know they are taking pt to the hospital now. Concerned pt is having a stroke/medical issues. Natasha Scanlon LPN documented in this encounter [facility] 04-28-2023 Miscellaneous Notes Pt's daughter Kathi asking for pt's meds to go to mail order pharmacy now instead of local so pt does not have to drive to get meds. 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 Patient has been identified by name and date of : Yes, Provider Ken Dasilva Date 04/28/23 Time 1018 Pt's daughter Kathi phones for refill(s): Requested Prescriptions Pending Prescriptions Disp Refills alfuzosin SR (UROXATRAL) 10 mg 24 hr tablet 90 tablet 3 Sig: Take 1 tablet by mouth once daily. rosuvastatin (CRESTOR) 10 mg tablet 90 tablet 3 Sig: Take 1 tablet by mouth once daily. Date of last office visit in primary care: 04/05/2023 Date of next office visit in primary care: 10/04/2023 Please advise. Thank you. Keara Larose LPN. documented in this encounter [facility] 04-20-2023 Miscellaneous Notes Pt returned call to office, notified of results/provider response. He verbalized understanding. Robbin Gordon Left message to return call to office. Robbin Gordon Left message for patient to return call. Venessa Hammonds Ma ----- Message from Grey Dasilva PA-C sent at 04/18/2023 7:53 AM EST ----- Please advise labs look good, platelet count stable range just under normal ThanksKen PA-C documented in this encounter [facility] 04-05-2023 Note HNO ID: [id number] Author: Grey Dasilva PA-C Service: ? Author Type: Physician Tinning Machine Set Up Operator Type: Progress Notes Filed: 04/05/2023 6:11 PM Note Text: 88 year old male with c/o here for folow up Last visit trauma: acute displaced and non-displaced rib fractures left 8,9, small left pleural effusion. Communicating hydrocephalus (hcc) (primary encounter diagnosis) Brain atrophy (hcc) Frequent falls Bilateral carotid artery stenosis Fluency disorder associated with underlying disease Essential hypertension Mixed hyperlipidemia 02/12/2021 MRI brain: No acute brain findings. No mass effect or abnormal enhancement intracranially. Mild brain volume loss and disproportionate ventriculomegaly. CSF pulsation artifact as noted, including T1 dephasing artifact visible in the area of the aqueduct on the sagittal T1-weighted scan and visible flow void within the aqueduct on the axial T2 scan. Limited follow-up consisting of MR CSF flow sequence may be useful to confirm presence or absence of hyperdynamic CSF motion. The findings on this exam are suspicious for communicating hydrocephalus. 10/03/20 carotid US: bilateral 20-39%, otherwise WNL Current meds: Rosuvastatin 10mg daily HS Use of NTG: No Chest pain, arm, jaw pain, neck, or upper back pain suggestive of angina: No. SOB: No Dyspnea with exertion: No orthopnea: No Cough : No racing or irregular heartbeats: No palpitations: No syncopal sx: No. Headache: No Unexplainable fatigue No Leg swelling: No Nausea: No diaphoresis: No Heartburn: No Claudication: No Smoking: No Following Low cholesterol, high fiber diet? somewhat If on statin: muscle aches? No If on statin: GI sx or diarrhea? No Additional history: none Lab review: No new data Hiatal hernia Current medication:none. Current symptoms: none. Last Mg level if on PPI chronically: n/a. Heartburn is controlled: Yes. Dysphagia: on occasion. Bloody or black stools: No. Bowel changes: No. Bph with obstruction/lower urinary tract symptoms Elevated prostate specific antigen (psa) Current medications: Alfusocin SR 10mg daily Feels urine flow if good, no issues. Platelets decreased (hcc) Resolved. HISTORIES FAMILY HISTORY Problem Relation Age of Onset Colon Cancer Other none Coronary Artery Disease Other none Diabetes Other none Arthritis Sister lupus other (TB) Mother other (TB) Sister PAST MEDICAL HISTORY Diagnosis Date Arthritis of knee, degenerative bilateral BPH (benign prostatic hyperplasia) Colon polyps Hyperlipidemia Kidney stones Tennis elbow bilateral PAST SURGICAL HISTORY Procedure Laterality Date COLONOSCOPY AND POLYPECTOMY 10/2014 polyps COLONOSCOPY FLX DX W/COLLJ SPEC WHEN PFRMD 2005,2009, 12/15/2017 Transverse Colon Polyp, Beals NEUROPLASTY AND/TRANSPOS MEDIAN NRV CARPAL TUNNE 1994 Carpal tunnel decomp Left [facility] OPEN REPAIR OF ROTATOR CUFF ACUTE 1992 Rotator cuff repair Right at [facility] Social History Tobacco Use Smoking status: Never Smokeless tobacco: Never Substance Use Topics Alcohol use: Yes Alcohol/week: 5.0 standard drinks of alcohol Types: 2 Cans of Beer (12oz) per week Drug use: No ACTIVE PROBLEM LIST Colon Polyps Hyperlipidemia Kidney Stones Bph With Obstruction/Lower Urinary Tract Symptoms Arthritis of Knee, Degenerative Elevated Prostate Specific Antigen (Psa) Degeneration of Lumbar Intervertebral Disc Chronic Pain of Left Knee Pain in Left Hip Bilateral Carotid Artery Stenosis Essential Hypertension Thyroid Nodule Bilateral Renal Cysts Communicating Hydrocephalus (Hcc) Brain Atrophy (Hcc) Hiatal Hernia Platelets Decreased (Hcc) Current Outpatient Medications Medication Sig Dispense Refill rosuvastatin (CRESTOR) 10 mg tablet Take 1 tablet by mouth once daily. 90 tablet 3 alfuzosin SR (UROXATRAL) 10 mg 24 hr tablet Take 1 tablet by mouth once daily. 90 tablet 3 OTC NUTRITIONAL SUPPLEMENT 1 tablet once daily. Prevagen multivitamin tablet Take 1 tablet by mouth once daily. 0 No current facility-administered medications for this visit. Shingrix Vaccine(1 of 2) Never done RSV Vaccine(1 - 1-dose 60+ series) Never done Depression Assessment Never done Influenza Vaccine(1) due on 01/14/2023 Covid-19 Vaccine(2022-24 season) due on 01/14/2023 EXAM: BP 124/56 Pulse 97 Temp 37.1 ?C (98.8 ?F) (Right Tympanic) Resp 16 Wt 78.9 kg (174 lb) SpO2 97% BMI 23.27 kg/m? Pleasant older man in no acute distress. Alert and oriented all spheres. Normal affect and cognition. Speech normal. No deficits to learning or comprehension. Skin warm, dry, pink to lips and nailbeds. Normal turgor. Respirations regular and unlabored. HEENT: NCAT. No scleral icterus or conjunctival injection. TM's clear. Nose and oropharynx free from injection or lesion. Oral membranes moist and pink. No cervi (more content not included)... [facility] 04-05-2023 History of Presen t illness Narrative 88 year old male with c/o here for folow up Last visit trauma: acute displaced and non-displaced rib fractures left 8,9, small left pleural effusion. Communicating hydrocephalus (hcc) (primary encounter diagnosis) Brain atrophy (hcc) Frequent falls Bilateral carotid artery stenosis Fluency disorder associated with underlying disease Essential hypertension Mixed hyperlipidemia 02/12/2021 MRI brain: No acute brain findings. No mass effect or abnormal enhancement intracranially. Mild brain volume loss and disproportionate ventriculomegaly. CSF pulsation artifact as noted, including T1 dephasing artifact visible in the area of the aqueduct on the sagittal T1-weighted scan and visible flow void within the aqueduct on the axial T2 scan. Limited follow-up consisting of MR CSF flow sequence may be useful to confirm presence or absence of hyperdynamic CSF motion. The findings on this exam are suspicious for communicating hydrocephalus. 10/03/20 carotid US: bilateral 20-39%, otherwise WNL Current meds: Rosuvastatin 10mg daily HS Use of NTG: No Chest pain, arm, jaw pain, neck, or upper back pain suggestive of angina: No. SOB: No Dyspnea with exertion: No orthopnea: No Cough : No racing or irregular heartbeats: No palpitations: No syncopal sx: No. Headache: No Unexplainable fatigue No Leg swelling: No Nausea: No diaphoresis: No Heartburn: No Claudication: No Smoking: No Following Low cholesterol, high fiber diet? somewhat If on statin: muscle aches? No If on statin: GI sx or diarrhea? No Additional history: none Lab review: No new data Hiatal hernia Current medication:none. Current symptoms: none. Last Mg level if on PPI chronically: n/a. Heartburn is controlled: Yes. Dysphagia: on occasion. Bloody or black stools: No. Bowel changes: No. Bph with obstruction/lower urinary tract symptoms Elevated prostate specific antigen (psa) Current medications: Alfusocin SR 10mg daily Feels urine flow if good, no issues. Platelets decreased (hcc) Resolved. HISTORIES FAMILY HISTORY Problem Relation Age of Onset Colon Cancer Other none Coronary Artery Disease Other none Diabetes Other none Arthritis Sister lupus other (TB) Mother other (TB) Sister PAST MEDICAL HISTORY Diagnosis Date Arthritis of knee, degenerative bilateral BPH (benign prostatic hyperplasia) Colon polyps Hyperlipidemia Kidney stones Tennis elbow bilateral PAST SURGICAL HISTORY Procedure Laterality Date COLONOSCOPY & POLYPECTOMY 10/2014 polyps COLONOSCOPY FLX DX W/COLLJ SPEC WHEN PFRMD 2005,2009, 12/15/2017 Transverse Colon Polyp, Beals NEUROPLASTY &/TRANSPOS MEDIAN NRV CARPAL TUNNE 1994 Carpal tunnel decomp Left [facility] OPEN REPAIR OF ROTATOR CUFF ACUTE 1992 Rotator cuff repair Right at [facility] Social History Tobacco Use Smoking status: Never Smokeless tobacco: Never Substance Use Topics Alcohol use: Yes Alcohol/week: 5.0 standard drinks of alcohol Types: 2 Cans of Beer (12oz) per week Drug use: No ACTIVE PROBLEM LIST Colon Polyps Hyperlipidemia Kidney Stones Bph With Obstruction/Lower Urinary Tract Symptoms Arthritis of Knee, Degenerative Elevated Prostate Specific Antigen (Psa) Degeneration of Lumbar Intervertebral Disc Chronic Pain of Left Knee Pain in Left Hip Bilateral Carotid Artery Stenosis Essential Hypertension Thyroid Nodule Bilateral Renal Cysts Communicating Hydrocephalus (Hcc) Brain Atrophy (Hcc) Hiatal Hernia Platelets Decreased (Hcc) Current Outpatient Medications Medication Sig Dispense Refill rosuvastatin (CRESTOR) 10 mg tablet Take 1 tablet by mouth once daily. 90 tablet 3 alfuzosin SR (UROXATRAL) 10 mg 24 hr tablet Take 1 tablet by mouth once daily. 90 tablet 3 OTC NUTRITIONAL SUPPLEMENT 1 tablet once daily. Prevagen multivitamin tablet Take 1 tablet by mouth once daily. 0 No current facility-administered medications for this visit. Shingrix Vaccine(1 of 2) Never done RSV Vaccine(1 - 1-dose 60+ series) Never done Depression Assessment Never done Influenza Vaccine(1) due on 01/14/2023 Covid-19 Vaccine(2022-24 season) due on 01/14/2023 EXAM: BP 124/56 Pulse 97 Temp 37.1 C (98.8 F) (Right Tympanic) Resp 16 Wt 78.9 kg (174 lb) SpO2 97% BMI 23.27 kg/m Pleasant older man in no acute distress. Alert and oriented all spheres. Normal affect and cognition. Speech normal. No deficits to learning or comprehension. Skin warm, dry, pink to lips and nailbeds. Normal turgor. Respirations regular and unlabored. HEENT: NCAT. No scleral icterus or conjunctival injection. TM's clear. Nose and oropharynx free from injection or lesion. Oral membranes moist and pink. No cervical lymph nodes. Thyroid non-tender, no masses, or enlargement. Carotids pulses 2+/4+ without bruits. No JVD with HOB at 30 degrees. Chest is normal shape. Lungs are clear to all dubose with good air exchange through out. HRRR without murmur or gallop. No lifts, heaves, or rubs. Extrem: no clubbing or cyanosis. Edema: none. Extremities are warm and pink with prompt capillary refill. Leans forward with walking, fast paced, slightly uneven gait. Able to turn without insecurity. ASSESSMENT/PLAN: 1. 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 Lives with daughter so being attended daily. 2. Brain atrophy (HCC) - ICD9: 331.9, ICD10: G31.9 Declining status Discussed PDI prods and cons again: declined 3. Frequent falls - ICD9: V15.88, ICD10: R29.6 Strongly urged to use walker which he mostly does. 4. Bilateral carotid artery stenosis - ICD9: 433.10, 433.30, ICD10: I65.23 mild 5. Fluency disorder associated with underlying disease - ICD9: 784.52, ICD10: R47.82 Persistent, delcing 6. Essential hypertension - ICD9: 401.9, ICD10: I10 - Controlled - Continue current medications - Recommend home blood pressure monitoring, to bring results to next visit - Encouraged sodium restriction, DASH or Mediterranean diet - Recommend regular aerobic exercise 7. Mixed hyperlipidemia - ICD9: 272.2, ICD10: E78.2 - Controlled - Continue current medications - Counseled on healthy diet and regular exercise 8. Hiatal hernia - ICD9: 553.3, ICD10: K44.9 No meds, doing okay 9. BPH with obstruction/lower urinary tract symptoms - ICD9: 600.01, 599.69, ICD10: N40.1, N13.8 Urine flow is good, not bothersome 10. Elevated prostate specific antigen (PSA) - ICD9: 790.93, ICD10: R97.20 Recheck PSA 11. Platelets decreased (HCC) - ICD9: 287.5, ICD10: D69.6 resolved Some of this note may have been copied and pasted for the purpose of history context and comparison and has been adjusted for changes in prior data. Grey Dasilva PA-C documented in this encounter [facility] 01-03-2023 Note HNO ID: [id number] Author: Grey Dasilva PA-C Service: ? Author Type: Physician Tinning Machine Set Up Operator Type: Progress Notes Filed: 01/03/2023 3:43 PM Note Text: Audio only was used for evaluation of this patient. Location of patient: [place] Patient was offered a virtual/telemedicine appointment in lieu of an office visit due to recommendations to reduce patient exposure to COVID-19. Patient is aware of limitations of performing the visit without a face to face visit in the office setting and agrees. I have communicated my name and active licensure. The patient's identity and physical location were verified at the time of this visit. Either the patient or their legal medicare sales representative has been informed of the risks and benefits of -- and alternatives to -- treatment through a remote evaluation and consents to proceed with the evaluation remotely. 3:18 PM 87 year old male with c/o complaint of URI, + home testing for Covid First Sx 12/31/2022 Tested positive yesterday Clear Runny nose followed by feeling dopey. A little fatigued, stayed in bed because tired. No body aches. [place] air headed No pain in sinuses or headache No pain or stuffiness in ears No stopped running. A little mild cough, no labored breathing, wheezing No chest pain No N/V/D Taking Nyquil Feels getting better last few days. Taking Nyquil which helps him sleep. Declined antiviral therapy, daughter Chinyere also in discussion. HISTORIES FAMILY HISTORY Problem Relation Age of Onset Colon Cancer Other none Coronary Artery Disease Other none Diabetes Other none Arthritis Sister lupus other (TB) Mother other (TB) Sister PAST MEDICAL HISTORY Diagnosis Date Arthritis of knee, degenerative bilateral BPH (benign prostatic hyperplasia) Colon polyps Hyperlipidemia Kidney stones Tennis elbow bilateral PAST SURGICAL HISTORY Procedure Laterality Date COLONOSCOPY AND POLYPECTOMY 10/2014 polyps COLONOSCOPY FLX DX W/COLLJ SPEC WHEN PFRMD 2005,2009, 12/15/2017 Transverse Colon Polyp, Beals NEUROPLASTY AND/TRANSPOS MEDIAN NRV CARPAL TUNNE 1994 Carpal tunnel decomp Left [facility] OPEN REPAIR OF ROTATOR CUFF ACUTE 1992 Rotator cuff repair Right at [facility] Social History Tobacco Use Smoking status: Never Smokeless tobacco: Never Substance Use Topics Alcohol use: Yes Alcohol/week: 5.0 standard drinks of alcohol Types: 2 Cans of Beer (12oz) per week Drug use: No ACTIVE PROBLEM LIST Colon Polyps Hyperlipidemia Kidney Stones Bph With Obstruction/Lower Urinary Tract Symptoms Arthritis of Knee, Degenerative Elevated Prostate Specific Antigen (Psa) Degeneration of Lumbar Intervertebral Disc Chronic Pain of Left Knee Pain in Left Hip Bilateral Carotid Artery Stenosis Essential Hypertension Thyroid Nodule Bilateral Renal Cysts Communicating Hydrocephalus (Hcc) Brain Atrophy (Hcc) Hiatal Hernia Platelets Decreased (Hcc) Current Outpatient Medications Medication Sig Dispense Refill rosuvastatin (CRESTOR) 10 mg tablet Take 1 tablet by mouth once daily. 90 tablet 3 alfuzosin SR (UROXATRAL) 10 mg 24 hr tablet Take 1 tablet by mouth once daily. 90 tablet 3 OTC NUTRITIONAL SUPPLEMENT 1 tablet once daily. Prevagen multivitamin tablet Take 1 tablet by mouth once daily. 0 No current facility-administered medications for this visit. SHINGRIX VACCINE(1 of 2) Never done DEPRESSION ASSESSMENT Never done COVID-19 VACCINE(6 - Pfizer series) due on 07/21/2022 EXAM: There were no vitals taken for this visit. Pleasant older man, Alert and oriented all spheres. Usual speech. Speaking easily in full sentences. No hoarseness or cough noted during call. ASSESSMENT/PLAN: 1. Upper respiratory tract infection due to COVID-19 virus - ICD9: 465.9, 079.89, ICD10: U07.1, J06.9 - Discussed viral etiology and rationale for treatment. - Symptomatic treatment with prn analgesia - Supportive care with fluids and rest - Red flags for urgent evaluation reviewed. - Advised could start antiviral therapy up to 5th day since onset This patient encounter involved the screening or treatment of novel coronavirus infection (COVID-19). 3:34 PM 14 minute call See orders and/or patient instructions. Patient ( or Guardian) expressed understanding of instructions on review. Grey Dasilva PA-C [facility] 01-03-2023 History of Presen t illness Narrative Audio only was used for evaluation of this patient. Location of patient: [place] Patient was offered a virtual/telemedicine appointment in lieu of an office visit due to recommendations to reduce patient exposure to COVID-19. Patient is aware of limitations of performing the visit without a face to face visit in the office setting and agrees. I have communicated my name and active licensure. The patient's identity and physical location were verified at the time of this visit. Either the patient or their legal medicare sales representative has been informed of the risks and benefits of -- and alternatives to -- treatment through a remote evaluation and consents to proceed with the evaluation remotely. 3:18 PM 87 year old male with c/o complaint of URI, + home testing for Covid First Sx 12/31/2022 Tested positive yesterday Clear Runny nose followed by feeling dopey. A little fatigued, stayed in bed because tired. No body aches. [place] air headed No pain in sinuses or headache No pain or stuffiness in ears No stopped running. A little mild cough, no labored breathing, wheezing No chest pain No N/V/D Taking Nyquil Feels getting better last few days. Taking Nyquil which helps him sleep. Declined antiviral therapy, daughter Chinyere also in discussion. HISTORIES FAMILY HISTORY Problem Relation Age of Onset Colon Cancer Other none Coronary Artery Disease Other none Diabetes Other none Arthritis Sister lupus other (TB) Mother other (TB) Sister PAST MEDICAL HISTORY Diagnosis Date Arthritis of knee, degenerative bilateral BPH (benign prostatic hyperplasia) Colon polyps Hyperlipidemia Kidney stones Tennis elbow bilateral PAST SURGICAL HISTORY Procedure Laterality Date COLONOSCOPY & POLYPECTOMY 10/2014 polyps COLONOSCOPY FLX DX W/COLLJ SPEC WHEN PFRMD 2005,2009, 12/15/2017 Transverse Colon Polyp, Beals NEUROPLASTY &/TRANSPOS MEDIAN NRV CARPAL TUNNE 1994 Carpal tunnel decomp Left [facility] OPEN REPAIR OF ROTATOR CUFF ACUTE 1992 Rotator cuff repair Right at [facility] Social History Tobacco Use Smoking status: Never Smokeless tobacco: Never Substance Use Topics Alcohol use: Yes Alcohol/week: 5.0 standard drinks of alcohol Types: 2 Cans of Beer (12oz) per week Drug use: No ACTIVE PROBLEM LIST Colon Polyps Hyperlipidemia Kidney Stones Bph With Obstruction/Lower Urinary Tract Symptoms Arthritis of Knee, Degenerative Elevated Prostate Specific Antigen (Psa) Degeneration of Lumbar Intervertebral Disc Chronic Pain of Left Knee Pain in Left Hip Bilateral Carotid Artery Stenosis Essential Hypertension Thyroid Nodule Bilateral Renal Cysts Communicating Hydrocephalus (Hcc) Brain Atrophy (Hcc) Hiatal Hernia Platelets Decreased (Hcc) Current Outpatient Medications Medication Sig Dispense Refill rosuvastatin (CRESTOR) 10 mg tablet Take 1 tablet by mouth once daily. 90 tablet 3 alfuzosin SR (UROXATRAL) 10 mg 24 hr tablet Take 1 tablet by mouth once daily. 90 tablet 3 OTC NUTRITIONAL SUPPLEMENT 1 tablet once daily. Prevagen multivitamin tablet Take 1 tablet by mouth once daily. 0 No current facility-administered medications for this visit. SHINGRIX VACCINE(1 of 2) Never done DEPRESSION ASSESSMENT Never done COVID-19 VACCINE(6 - Pfizer series) due on 07/21/2022 EXAM: There were no vitals taken for this visit. Pleasant older man, Alert and oriented all spheres. Usual speech. Speaking easily in full sentences. No hoarseness or cough noted during call. ASSESSMENT/PLAN: 1. Upper respiratory tract infection due to COVID-19 virus - ICD9: 465.9, 079.89, ICD10: U07.1, J06.9 - Discussed viral etiology and rationale for treatment. - Symptomatic treatment with prn analgesia - Supportive care with fluids and rest - Red flags for urgent evaluation reviewed. - Advised could start antiviral therapy up to 5th day since onset This patient encounter involved the screening or treatment of novel coronavirus infection (COVID-19). 3:34 PM 14 minute call See orders and/or patient instructions. Patient ( or Guardian) expressed understanding of instructions on review. Grey Dasilva PA-C documented in this encounter [facility] 01-03-2023 Miscellaneous Notes Phone visit scheduled ok'd per provider. Venessa Hammonds Ma Daughter Chinyere calls and states the following: COVID 19 positive. COVID -19 DIAGNOSIS: positive 8/20/23 with home test COVID-19 EXPOSURE: possible daughter ONSET: started 12/23/22 with symptoms WORST SYMPTOM: fatigue COUGH: yesterday dry cough FEVER: unknown RESPIRATORY STATUS: No problems yesterday 01-02-23 [id number]: better HIGH RISK DISEASE: age VACCINE: yes and boosters OTHER SYMPTOMS: chills, started eating yesterday 01-02-23. Pt was in bed for 3 days and yesterday finally got up 01-02-23. Pt keeps saying I don't feel good. Congested, hoarse (pt sounds bad per daughter) Denies : vomiting, abdominal , muscle aches, headache, not certain of loss of smell or taste. Daughter asking if pt needs to be treated with medication. Please advise daughter. Pt unable to do virtual apt, does not have MyChart. Mentioned may need to go to [facility]. Wanted message to Ken per daughter. Natasha Scanlon LPN documented in this encounter [facility] 11-09-2022 Miscellaneous Notes Ishmael at [facility] notified. Verbalized understanding. Reviewed and approve Ken Dan PA-C Ishmael with [facility] PT is calling for VO that it is ok to add visits to pt's schedule. Starting 11/21 PT would like to see pt once a week x 2 weeks to get pt where he needs to be. Call Ishmael with provider VO. Sofía Childers LPN documented in this encounter [facility] 09-28-2022 Note HNO ID: [id number] Author: Grey Dasilva PA-C Service: ? Author Type: Physician Tinning Machine Set Up Operator Type: Progress Notes Filed: 09/29/2022 11:01 AM Note Text: 87 year old male with c/o here for follow up 6 month follow up 09/22-09/23/2022 ED visit [facility]: fall with left facial hematoma, laceration left cheek, chest wall injury with pain. 1 cm laceration closed with 4.0 Ethilon one suture 09/23/2022 Lab: CBC: WBC 7.26-RBC 4.49-hemoglobin 14.5-hematocrit 44.3-PLT 149. Normal indices. BMP: WNL except chloride 109, AG 6, glucose 150 UA: WNL except protein 30 mg/dL 09/23/2022 CXR PA/AP 1. Small left pleural effusion with left basilar opacities which could represent atelectasis, aspiration changes, and/or pneumonia. 2. The patient's known left-sided rib fractures are better seen on the prior CT examination. 09/22/2022 labs: CBC: WBC 6.35-RBC 4.73-hemoglobin 15.4-hematocrit 46.2-PLT 149, normal indices and differential BMP within normal limits except glucose 115 09/22/2022 CT chest without contrast 1. Acute displaced and nondisplaced left posterior 8th and 9th rib fractures with small left pleural effusion/hemothorax. 2. No pneumothorax. 3. Moderate-sized hiatal hernia. 4. Left nephrolithiasis. 5. Hepatic cysts. 09/22/2022 CT head/brain WO/ CT maxillofacial 1. Left face contusion with hematoma. No facial fracture identified. 2. No acute intracranial abnormality identified. 3. Senescent atrophy and chronic microvascular ischemic change. No extra fluid spaces. 4. Soft tissue thickening of the left frontoethmoidal recess. 09/22/2022 EKG: Sinus tachycardia ventricular rate 108, premature atrial complexes otherwise normal EKG. Communicating hydrocephalus (hcc) (primary encounter diagnosis) Bilateral carotid artery stenosis Essential hypertension Mixed hyperlipidemia Brain arophy Cardiovascular/Cerebrovascular interval hx: 08/11/2021 IR LP for drainage, Zohra Garzon, OPERATOR ASSISTANT I CEMENTING: Therapeutic Volume: 23 ml of CSF was withdrawn in a sterile fashion from the subarachnoid space Opening pressure was recorded at 16 cm H2O Closing pressure was recorded at < 9 cm H2O 03/19/2021 consult neuro: Heaven Milton IR LP: opening pressure 17cm H2O Component Latest Ref Rng AND Units 03/19/2021 03/19/2021 03/19/2021 03/19/2021 3:15 PM 3:15 PM 3:15 PM 3:15 PM Color, CSF Colorless Colorless Clarity, CSF Clear Clear Supernatant Color, CSF Colorless Test Not Indicated (A) Supernatant Clarity, CSF Clear Test Not Indicated (A) RBC, CSF 0 - 5 /uL 17 (H) Total Nucleated Cells, CSF 0 - 5 /uL 0 Comment, CSF Less than 100 cells counted on differential Pathologist Interpretation, CSF Test Not Indicated Slide Number CSF 2,111,635 Neut%, CSF 0 - 3 % 2 Lymph%, CSF 50 - 90 % 80 Warrick%, CSF 10 - 50 % 18 DIF TTL, CSF 60 Glucose, CSF 40 - 70 mg/dL 76 (H) Protein, CSF 15 - 45 mg/dL 61 (H) Specimen Request Specimen received in sterile container. Smear Result No organisms seen No Polymorphonuclear Leukocytes Gram stain performed on cytospun specimen. Culture No growth 5 days 02/12/2021 MRI W/WO IVCON There is no evidence of restricted diffusion to suggest an acute infarct. No evidence of prior parenchymal hemorrhage on the gradient echo images. No evidence of an intracranial mass or extra-axial fluid collection. No abnormal parenchymal or leptomeningeal enhancement is noted following contrast administration. No significant mass effect. Mild background chronic microvascular ischemic change, and a few small deep white matter infarcts centered in right frontal and bilateral parietal deep white matter. Mild generalized brain volume loss Disproportionate ventriculomegaly. Thin rim of T2/FLAIR hyperintensity along the frontal horns, body and occipital horns of the lateral ventricles may represent minimal transependymal edema superimposed upon chronic microvascular disease. There is relatively prominent CSF pulsation artifact and there is also dephasing artifact visible on the sagittal T1-weighted scan through the region of the aqueduct as well as axial T2 flow void in the aqueduct. This combination of findings raises question of hyperdynamic CSF motion in the setting of disproportionate ventriculomegaly and raises the question of communicating hydrocephalus. Limited follow-up consisting of an MRI CSF flow sequence may be useful to confirm presence or absence of hyperdynamic CSF motion. Moderate cerebellar volume loss and slightly prominent cisterna magna. No evidence for posterior fossa arachnoid cyst. Hypothalamic and pituitary region are grossly normal. Craniocervical junction is normal. No significant marrow replacement process. Vasculature: Major intracranial arterial structures, and dural venous sinuses show typical flow void, suggesting patency by spin echo criteria. Typical enhancement of major cortical abdulaziz (more content not included)... [facility] 04-26-2022 Miscellaneous Notes Verbal order given Reviewed and approve. ThanksKen PA-C Chantal from [facility] calling she did ST evaluation and plan of care 1 visit weekly for 4 weeks working on cognitive skills development. Asking for call back with approval. documented in this encounter [facility] 04-09-2022 History of Presen t illness Narrative PULM FUNCTION SMARTBLOCK: Provider: Grey Dasilva PA-C Assisting Tech: ANNI Goyal Spirometry: 1 documented in this encounter [facility] 04-07-2022 Miscellaneous Notes Chantal, a ST with [facility] calling to state patient declined ST services when she went to evaluate him yesterday. Pt stated he felt he did not need ST. Chantal reports she updated pt's daughter as well. Heather Zavala, RN documented in this encounter [facility] 04-02-2022 Miscellaneous Notes Notified. Reviewed and approve Thanks, Ken Dasilva PA-C Ishmael PT calling from [facility] to report plan of care for patient and Physical Therapy will visit patient 1 time a week for first week, 2 times a week for 4 weeks, and 1 time a week for 4 weeks. Physical Therapy will work with patient on improving overall safety and ability in getting around house and getting up from chair. Can leave message, phone is a secure line Please review and Advise, Soco Bolton RN documented in this encounter [facility] 03-30-2022 Miscellaneous Notes Chinyere with [facility] calls to report that pt was referred to them. Chinyere is requesting last OV note and demo's to be faxed to: [phone]. Information faxed as requested. Sofía Childers LPN documented in this encounter [facility] 03-30-2022 Miscellaneous Notes Faxed PT/ST orders to [facility] # [phone]. placed Pts daughter called in and reports her sister had gone with her father to his appointment with [facility], and he had told them that the Pt needed PT ans ST. Looked through OV notes and didn't see anything about it and ordered were not places. Would provider be willing to place PT and ST orders, and Pt would like to do them at [facility]. The fax # to send orders to is # [phone]. documented in this encounter [facility] 03-27-2022 Miscellaneous Notes Daughter Chinyere contacted my work phone: instructed to call scheduling line for PT and ST orders. Ken Dasilva PA-C documented in this encounter [facility] 03-26-2022 Miscellaneous Notes Phoned patient and spoke with daughter, Chinyere, and given provider's message below with verbalized understanding. Chinyere reports patient has an appt with Ken for follow up. Let them know labs are all perfect. No signs of chf etc on labs. Platelets slightly reduced but stable over the last two years so not likely to be significant. Make sure he has a follow up with Ken at some point and call if worsens at all. documented in this encounter [facility] 03-24-2022 Miscellaneous Notes Notified daughter Chinyere. States will get labs done soon. Xray shows what might be normal vs tiny amount of fluid at base. No definite chf or pneumonia. He had labs ordered that need done james. Please do documented in this encounter [facility] 03-23-2022 History of Presen t illness Narrative 87 year old male with c/o shortness of breath x1 year. Daughter reports noticing he is more SOB after walking and with rest. Still able to talk okay. No wheezing, coughing, edema, chest pain, palpitations, light headedness. Never had anything like this in the past. 10lb weight loss. States appetite waning. Generalized weakness, no falls or syncopal sx. No abdominal pain, heartburn, reflux, nausea or vomiting. BM daily. No bloating, abdominal pain. Stools are long and solid, no black or tarry appearance, or change in color. Continues doing projects around the house- works until he feels tired and then rests. Can walk a few hundred feet without difficulty. HISTORIES FAMILY HISTORY Problem Relation Age of Onset Colon Cancer Other none Coronary Artery Disease Other none Diabetes Other none Arthritis Sister lupus other (TB) Mother other (TB) Sister PAST MEDICAL HISTORY Diagnosis Date Arthritis of knee, degenerative bilateral BPH (benign prostatic hyperplasia) Colon polyps Hyperlipidemia Kidney stones Tennis elbow bilateral PAST SURGICAL HISTORY Procedure Laterality Date COLONOSCOPY & POLYPECTOMY 10/2014 polyps COLONOSCOPY FLX DX W/COLLJ SPEC WHEN PFRMD 2005,2009, 12/15/2017 Transverse Colon Polyp, Beals NEUROPLASTY &/TRANSPOS MEDIAN NRV CARPAL TUNNE 1994 Carpal tunnel decomp Left [facility] OPEN REPAIR OF ROTATOR CUFF ACUTE 1992 Rotator cuff repair Right at [facility] Social History Tobacco Use Smoking status: Never Smokeless tobacco: Never Substance Use Topics Alcohol use: Yes Alcohol/week: 5.0 standard drinks Types: 2 Cans of Beer (12oz) per week Drug use: No ACTIVE PROBLEM LIST Colon Polyps Hyperlipidemia Kidney Stones 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 90 tablet 3 alfuzosin SR (UROXATRAL) 10 mg 24 hr tablet Take 1 tablet by mouth once daily. 90 tablet 3 OTC NUTRITIONAL SUPPLEMENT 1 tablet once daily. Prevagen multivitamin tablet Take 1 tablet by mouth once daily. 0 No current facility-administered medications for this visit. DEPRESSION ASSESSMENT Never done COVID-19 VACCINE(5 - Booster for MAG Interactive series) due on 11/07/2021 INFLUENZA(1) due on 01/14/2022 EXAM: BP 128/62 Pulse 94 Resp 20 Wt 81.7 kg (180 lb 3.2 oz) SpO2 96% BMI 23.99 kg/m 12lb weight loss over 1 year to day. Pleasant well appearing in no acute distress. Alert and oriented all spheres. Normal affect and cognition. Speech normal. No deficits to learning or comprehension. HEENT: NCAT. No scleral icterus or conjunctival injection. TM's clear. Nose and oropharynx free from injection or lesion. Oral membranes moist and pink. No cervical lymph nodes. Thyroid non-tender, no masses, or enlargement. Carotids pulses 2+/4+ without bruits. 1cm JVD with HOB at 30 degrees. Skin warm, dry, pink to lips and nailbeds. Normal turgor. Respirations regular and unlabored. Chest is normal shape. Lungs are clear to all dubose with good air exchange through out. No dullness. HRRR without murmur or gallop. No lifts, heaves, or rubs. Extrem: no clubbing or cyanosis. Edema: none. Extremities are warm and pink with prompt capillary refill. ASSESSMENT/PLAN: 1. Generalized weakness - ICD9: 780.79, ICD10: R53.1 (primary diagnosis) - CBC - COMP METABOLIC PANEL - BASIC METABOLIC PNL - TSH BLD 2. Need for influenza vaccination - ICD9: V04.81, ICD10: Z23 - INFLUENZA SEASONAL QUADRIVALENT HIGH DOSE AGE 65+ - NephroGenex-etrigg COVID-19 BIVALENT BOOSTER VACCINE, AGE 12+ YR 3. SOB (shortness of breath) - ICD9: 786.05, ICD10: R06.02 Doubt CHF, no hx for cardiogenic issues. - SPIROMETRY BASELINE ONLY - XR CHEST 2V FRONTAL/LAT - NT PRO BNP 4. Need for COVID-19 vaccine - ICD9: V04.89, ICD10: Z23 Will follow up with results. Grey Dasilva PA-C documented in this encounter [facility] 10-22-2021 Miscellaneous Notes Daughter notified of provider message Please tell her that is patently untrue. I did not tell him not to do therapy or cancel any orders. I absolutely want him to have therapy. Thanks, Ken Dasilva PA-C Pt's daughter Chinyere lee states is extremely upset.She states she has jumped through hoops to get her father in speech and physical therapy which she believes very much he needs . She is a nurrse and works with [employer]. She explains Her dad was in to see Ken yesterday 10/20/2021. He told her Ken told him he does not need any therapy. So her dad cancelled both of these. She is upset and is wanting a call back from Ken directly to see what went on.This nurse explains he is out of office today but will send t/e to him for when her returns. documented in this encounter [facility] 10-20-2021 History of Presen t illness Narrative 86 year old male with c/o none Communicating Hydrocephalus: Feels off balance if stands quickly. Tuesday tripped in kitchen, not realted to dizziness. No spinning [place] better both times he has LP 08/11/2021 [facility] Zohra Garzon: IR LP completed: 23ml clear CSF; not sent to lab 07/16/2021 [facility]: Dr. Antoni Mena: recommended repeat high volume IR LP due to small volume 4 cc last attempt.from notes: 02/12/21 MRI: Mild brain volume loss and disproportionate ventriculomegaly with CSF pulsation artifact, mild background chronic microvascular ischemic change, and a few small deep white matter infarcts centered in right frontal and bilateral parietal deep white matter. leon CSF motion. The findings on this exam are suspicious for communicating hydrocephalus. 10/07/2020 ultrasound demonstrated right CCA no stenosis, ICA 20 to 39%, VA with patent antegrade flow, SCA plaque visualized without significant stenosis. Left: CCA plaque visualized without significant stenosis, ICA 20 to 39%, VA patent with antegrade flow. HTN: Current meds: None Patient is compliant with meds n/a Monitors bp at home: No. If yes, readings: Denies side effects: Yes. Chest pain: No. Dyspnea: No. Edema: No. Palpitations: No. Syncope: No. Headache: No. Dizziness: No. Last 3 Encounter BP Readings: Date: BP: 07/17/2021 179/84 07/16/2021 165/83 05/25/2021 118/58 Last 2 Encounter Wt Readings: Date: Wt: 07/16/2021 88.2 kg (194 lb 6.4 oz) 05/25/2021 88.5 kg (195 lb) Hyperlipidemia: Current medication Rosuvastatin 10mg daily Taking medication consistently No Observing low cholesterol high fiber diet tries to eat fiber and low cholesterol meat Muscle aches No. Had backache but improved with new mattress. Stomach complaints/ diarrhea No Last 2 Lipids: Component Latest Ref Rng & Units 01/01/2020 08/07/2021 Cholesterol, Total <200 mg/dL 155 131 Triglyceride <150 mg/dL 138 97 HDL Cholesterol >39 mg/dL 48 45 LDL Cholesterol <100 mg/dL 79 67 Non HDL Cholesterol <130 mg/dL 107 86 Fasting Time hrs 12 14 VLDL Cholesterol <30 mg/dL 28 19 TC:HDL Ratio <5.10 3.23 2.91 LDL:HDL Ratio <2.54 1.65 1.49 BPH with Lower sx Wakes lay ups assembler to urinate. No other nocturia. Flow is good, not bothersome. Component Latest Ref Rng & Units 09/04/2008 09/27/2008 09/24/2009 01/27/2011 11/07/2014 PSA Screening 0.0 - 4.0 NG/ML 3.4 PSA 0.00 - 2.59 ng/mL 4.1 (H) 3.6 3.8 4.23 (H) HISTORIES FAMILY HISTORY Problem Relation Age of Onset Colon Cancer Other none Coronary Artery Disease Other none Diabetes Other none Arthritis Sister lupus other (TB) Mother other (TB) Sister PAST MEDICAL HISTORY Diagnosis Date Arthritis of knee, degenerative bilateral BPH (benign prostatic hyperplasia) Colon polyps Hyperlipidemia Kidney stones Tennis elbow bilateral PAST SURGICAL HISTORY Procedure Laterality Date COLONOSCOPY & POLYPECTOMY 10/2014 polyps COLONOSCOPY FLX DX W/COLLJ SPEC WHEN PFRMD 2005,2009, 12/15/2017 Transverse Colon Polyp, Beals NEUROPLASTY &/TRANSPOS MEDIAN NRV CARPAL TUNNE 1994 Carpal tunnel decomp [facility] OPEN REPAIR OF ROTATOR CUFF ACUTE 1992 Rotator cuff repair Right at [facility] Social History Tobacco Use Smoking status: Never Smoker Smokeless tobacco: Never Used Substance Use Topics Alcohol use: Yes Alcohol/week: 5.0 standard drinks Types: 2 Cans of Beer (12oz) per week Drug use: No ACTIVE PROBLEM LIST Colon Polyps Hyperlipidemia Kidney Stones Bph (Benign Prostatic Hyperplasia) Arthritis of Knee, Degenerative Elevated Prostate Specific Antigen (Psa) Degeneration of Lumbar Intervertebral Disc Chronic Pain of Left Knee Pain in Left Hip Bilateral Carotid Artery Stenosis Essential Hypertension Thyroid Nodule Bilateral Renal Cysts Communicating Hydrocephalus (Hcc) Current Outpatient Medications Medication Sig Dispense Refill alfuzosin SR (UROXATRAL) 10 mg 24 hr tablet Take 1 tablet by mouth once daily. 90 tablet 3 rosuvastatin (CRESTOR) 10 mg tablet Take 1 tablet by mouth once daily. 90 tablet 3 OTC NUTRITIONAL SUPPLEMENT 1 tablet once daily. Prevagen multivitamin (MULTIPLE VITAMINS) ORAL tablet Take 1 tablet by mouth once daily. 0 No current facility-administered medications for this visit. SHINGRIX VACCINE(1 of 2) Never done ADVANCE DIRECTIVE DISCUSSION Never done COVID-19 VACCINE(4 - Booster for Pfizer series) due on 06/23/2021 EXAM: BP 118/66 Pulse 95 Resp 16 Wt 83.9 kg (185 lb) SpO2 94% BMI 24.63 kg/m Last 14 BP Last 14 Encounter BP Readings: Date: BP: 10/20/2021 118/66 07/17/2021 179/84 07/16/2021 165/83 05/25/2021 118/58 04/02/2021 154/80[provider notified[ 03/12/2021 142/77 03/12/2021 161/82[provider notified[ 02/09/2021 140/82 11/21/2020 132/82 10/29/2020 126/72 10/03/2020 162/84 09/23/2020 151/79[BP Ghassan average[ 08/26/2020 138/82[BP Ghassan average[ 07/28/2020 150/64 Pleasant well apprraing lean adult ma in no acute distress. Alert and oriented all spheres. Normal affect and cognition. Speech normal. No deficits to learning or comprehension. Skin warm, dry, pink to lips and nailbeds. Normal turgor. Respirations regular and unlabored. HEENT: NCAT. No scleral icterus or conjunctival injection. Hearing aides removed, TM's clear. Nose and oropharynx free from injection or lesion. Oral membranes moist and pink. No cervical lymph nodes. Thyroid non-tender, no masses, or enlargement. Carotids pulses 2+/4+ without bruits. Extrem: no clubbing, cyanosis, edema. Distal pulses 2+/4, prompt capillary refill. ASSESSMENT/PLAN: 1. Communicating hydrocephalus (HCC) - ICD9: 331.3, ICD10: G91.0 (primary diagnosis) Currently 2. Fluency disorder associated with underlying disease - ICD9: 784.52, ICD10: R47.82 Following with neuro. Seems to benefit from spinal tap No future appointments scheduled-? 3. Bilateral carotid artery stenosis - ICD9: 433.10, 433.30, ICD10: I65.23 10/03/20 carotid US: bilateral 20-39%, otherwise WNL: follow next year 4. Essential hypertension - ICD9: 401.9, ICD10: I10 - good control - Monitor dizziness, may need lowered dosing - Recommended regular aerobic exercise. - Recommend home blood pressure monitoring, to bring results in on next visit - Goal of BP <130/80 - CBC + DIFF - COMP METABOLIC PANEL 5. Mixed hyperlipidemia - ICD9: 272.2, ICD10: E78.2 - good control - Continue current medication. - ROSUVASTATIN 10 MG TABLET - COMP METABOLIC PANEL - LIPID PANEL BASIC 6. Thyroid nodule - ICD9: 241.0, ICD10: E04.1 Stable on exam: no follow up recommended for US 7. Elevated prostate specific antigen (PSA) - ICD9: 790.93, ICD10: R97.20 - PSA/PROSTSPECAG SCRN 8. BPH with obstruction/lower urinary tract symptoms - ICD9: 600.01, 599.69, ICD10: N40.1, N13.8 - ALFUZOSIN ER 10 MG TABLET,EXTENDED RELEASE 24 HR - PSA/PROSTSPECAG SCRN 9. Encounter for screening for malignant neoplasm of prostate - ICD9: V76.44, ICD10: Z12.5 - PSA/PROSTSPECAG SCRN F/U 6 months and as needed Grey Dasilva PA-C documented in this encounter [facility] 10-16-2021 Miscellaneous Notes Called and let Chantal JACOB at [facility] know that Dr Foote approved POC. We can do Chantal JACOB with [facility] called in to update provider with her POC. Sh completed her cognitive evaluation and will be seeing the Pt twice a week for one week, the once a week for three weeks. She will be working on memory and attention. documented in this encounter [facility] 10-14-2021 Miscellaneous Notes Call placed to [facility] with verbal order given for PT POC as requested below. Nataliya Parsons RN Reviewed an approve ThanksKen PA-C [facility] calling from [facility] to report plan of care for patient and PT will visit patient 2 times a week for 3 weeks and 1 time a week for 3 weeks. PT will work with patient on improving physical function (patient's goal is to be able to get in and out of recliner chair easier). [facility] requesting verbal order be called to [phone]. Nataliya Parsons RN documented in this encounter [facility] 10-02-2021 Miscellaneous Notes Daughter, Chinyere, notified. She will check with insurance and then call back to schedule. Telephone on 10/02/21 CONSULT TO SPEECH THERAPY Ken Dan PA-C Daughter, Chinyere, asking pcp to place order for patient for ST, as well, to help with his memory. Reports she is working on the insurance part of it now. documented in this encounter [facility] 09-25-2021 Miscellaneous Notes Daughter notified. Will call office back after verifying with patient's insurance what [facility] is covered. Cecille Torre MA Telephone on 09/24/21 [facility] Degeneration of lumbar intervertebral disc (primary encounter diagnosis) Pain in left hip Balance disorder Nph (normal pressure hydrocephalus) (hcc) Ken Dan PA-C Daughter Chinyere is calling in asking if Ken would order home PT for balance issues. Chinyere currently has no agency in mind for this. Please advise Chinyere. documented in this encounter [facility] 08-07-[address] orders for cbc with diff for patient. documented in this encounter [facility] documented as of this encounter (statuses as of 08/07/2021) [facility] History of Past illness Narrative* Problem Noted Date Resolved Date Routine general medical exam ination at a health care facility 09/09/2010 05/26/2015 Overview: ################## OLD RECORDS IN PAPER CHART ################### 09/09/2010, from Dr. Karlo bray 09/09/2010 05/26/2015 Overview: Bilateral -- has done well with injections documented as of this encounter (statuses as of 09/25/2021) [facility] History of Past illness Narrative* Problem Noted Date Resolved Date Routine general medical exam ination at a health care facility 09/09/2010 05/26/2015 Overview: ################## OLD RECORDS IN PAPER CHART ################### 09/09/2010, from Dr. Karlo bray 09/09/2010 05/26/2015 Overview: Bilateral -- has done well with injections documented as of this encounter (statuses as of 10/02/2021) [facility] History of Past illness Narrative* Problem Noted Date Resolved Date Routine general medical exam ination at a health care facility 09/09/2010 05/26/2015 Overview: ################## OLD RECORDS IN PAPER CHART ################### 09/09/2010, from Dr. Karlo bray 09/09/2010 05/26/2015 Overview: Bilateral -- has done well with injections documented as of this encounter (statuses as of 10/14/2021) [facility] History of Past illness Narrative* Problem Noted Date Resolved Date Routine general medical exam ination at a health care facility 09/09/2010 05/26/2015 Overview: ################## OLD RECORDS IN PAPER CHART ################### 09/09/2010, from Dr. Karlo bray 09/09/2010 05/26/2015 Overview: Bilateral -- has done well with injections documented as of this encounter (statuses as of 10/16/2021) [facility] History of Past illness Narrative* Problem Noted Date Resolved Date Routine general medical exam ination at a health care facility 09/09/2010 05/26/2015 Overview: ################## OLD RECORDS IN PAPER CHART ################### 09/09/2010, from Dr. Karlo bray 09/09/2010 05/26/2015 Overview: Bilateral -- has done well with injections documented as of this encounter (statuses as of 10/21/2021) [facility] History of Past illness Narrative* Problem Noted Date Resolved Date Routine general medical exam ination at a health care facility 09/09/2010 05/26/2015 Overview: ################## OLD RECORDS IN PAPER CHART ################### 09/09/2010, from Dr. Karlo bray 09/09/2010 05/26/2015 Overview: Bilateral -- has done well with injections documented as of this encounter (statuses as of 10/22/2021) [facility] History of Past illness Narrative* Problem Noted Date Resolved Date Routine general medical exam ination at a health care facility 09/09/2010 05/26/2015 Overview: ################## OLD RECORDS IN PAPER CHART ################### 09/09/2010, from Dr. Karlo Charlton elbow 09/09/2010 05/26/2015 Overview: Bilateral -- has done well with injections documented as of this encounter (statuses as of 03/24/2022) [facility] History of Past illness Narrative* Problem Noted Date Resolved Date Routine general medical exam ination at a health care facility 09/09/2010 05/26/2015 Overview: ################## OLD RECORDS IN PAPER CHART ################### 09/09/2010, from Dr. Karlo Charlton elbow 09/09/2010 05/26/2015 Overview: Bilateral -- has done well with injections documented as of this encounter (statuses as of 03/24/2022) [facility] History of Past illness Narrative* Problem Noted Date Resolved Date Routine general medical exam ination at a health care facility 09/09/2010 05/26/2015 Overview: ################## OLD RECORDS IN PAPER CHART ################### 09/09/2010, from Dr. Karlo Charlton elbow 09/09/2010 05/26/2015 Overview: Bilateral -- has done well with injections documented as of this encounter (statuses as of 03/26/2022) [facility] History of Past illness Narrative* Problem Noted Date Resolved Date Routine general medical exam ination at a health care facility 09/09/2010 05/26/2015 Overview: ################## OLD RECORDS IN PAPER CHART ################### 09/09/2010, from Dr. Karlo bray 09/09/2010 05/26/2015 Overview: Bilateral -- has done well with injections documented as of this encounter (statuses as of 03/27/2022) [facility] History of Past illness Narrative* Problem Noted Date Resolved Date Routine general medical exam ination at a health care facility 09/09/2010 05/26/2015 Overview: ################## OLD RECORDS IN PAPER CHART ################### 09/09/2010, from Dr. Karlo bray 09/09/2010 05/26/2015 Overview: Bilateral -- has done well with injections documented as of this encounter (statuses as of 03/30/2022) [facility] History of Past illness Narrative* Problem Noted Date Resolved Date Routine general medical exam ination at a health care facility 09/09/2010 05/26/2015 Overview: ################## OLD RECORDS IN PAPER CHART ################### 09/09/2010, from Dr. Karlo bray 09/09/2010 05/26/2015 Overview: Bilateral -- has done well with injections documented as of this encounter (statuses as of 03/30/2022) [facility] History of Past illness Narrative* Problem Noted Date Resolved Date Routine general medical exam ination at a health care facility 09/09/2010 05/26/2015 Overview: ################## OLD RECORDS IN PAPER CHART ################### 09/09/2010, from Dr. Karlo bray 09/09/2010 05/26/2015 Overview: Bilateral -- has done well with injections documented as of this encounter (statuses as of 03/30/2022) [facility] History of Past illness Narrative* Problem Noted Date Resolved Date Routine general medical exam ination at a health care facility 09/09/2010 05/26/2015 Overview: ################## OLD RECORDS IN PAPER CHART ################### 09/09/2010, from Dr. Karlo bray 09/09/2010 05/26/2015 Overview: Bilateral -- has done well with injections documented as of this encounter (statuses as of 04/02/2022) [facility] History of Past illness Narrative* Problem Noted Date Resolved Date Routine general medical exam ination at a health care facility 09/09/2010 05/26/2015 Overview: ################## OLD RECORDS IN PAPER CHART ################### 09/09/2010, from Dr. Karlo bray 09/09/2010 05/26/2015 Overview: Bilateral -- has done well with injections documented as of this encounter (statuses as of 04/09/2022) [facility] History of Past illness Narrative* Problem Noted Date Resolved Date Routine general medical exam ination at a health care facility 09/09/2010 05/26/2015 Overview: ################## OLD RECORDS IN PAPER CHART ################### 09/09/2010, from Dr. Karlo bray 09/09/2010 05/26/2015 Overview: Bilateral -- has done well with injections documented as of this encounter (statuses as of 04/15/2022) [facility] History of Past illness Narrative* Problem Noted Date Resolved Date Routine general medical exam ination at a health care facility 09/09/2010 05/26/2015 Overview: ################## OLD RECORDS IN PAPER CHART ################### 09/09/2010, from Dr. Karlo bray 09/09/2010 05/26/2015 Overview: Bilateral -- has done well with injections documented as of this encounter (statuses as of 04/26/2022) [facility]04-27-2011 History of Past illness Narrative* Problem Noted Date Resolved Date Routine general medical exam ination at a health care facility 09/09/2010 05/26/2015 Overview: ################## OLD RECORDS IN PAPER CHART ################### 09/09/2010, from Dr. Karlo bray 09/09/2010 05/26/2015 Overview: Bilateral -- has done well with injections documented as of this encounter (statuses as of 11/10/2022) [facility]04-27-2011 History of Past illness Narrative* Problem Noted Date Diagnosed Date Resolved Date Routine general medical exam ination at a health care facility 09/09/2010 05/26/2015 Overview: ################## OLD RECORDS IN PAPER CHART ################### 09/09/2010, from Dr. Karlo bray 09/09/2010 05/26/2015 Overview: Bilateral -- has done well with injections documented as of this encounter (statuses as of 01/03/2023) [facility]04[facility]-2011 History of Past illness Narrative* Problem Noted Date Diagnosed Date Resolved Date Routine general medical exam ination at a health care facility 09/09/2010 05/26/2015 Overview: ################## OLD RECORDS IN PAPER CHART ################### 09/09/2010, from Dr. Karlo bray 09/09/2010 05/26/2015 Overview: Bilateral -- has done well with injections documented as of this encounter (statuses as of 01/04/2023) [facility]04[facility]2011 History of Past illness Narrative* Problem Noted Date Diagnosed Date Resolved Date Routine general medical exam ination at a health care facility 09/09/2010 05/26/2015 Overview: ################## OLD RECORDS IN PAPER CHART ################### 09/09/2010, from Dr. Karlo bray 09/09/2010 05/26/2015 Overview: Bilateral -- has done well with injections documented as of this encounter (statuses as of 04/06/2023) [facility]2011 History of Past illness Narrative* Problem Noted Date Diagnosed Date Resolved Date Routine general medical exam ination at a health care facility 09/09/2010 05/26/2015 Overview: ################## OLD RECORDS IN PAPER CHART ################### 09/09/2010, from Dr. Karlo bray 09/09/2010 05/26/2015 Overview: Bilateral -- has done well with injections documented as of this encounter (statuses as of 04/20/2023) [facility]2011 History of Past illness Narrative* Problem Noted Date Diagnosed Date Resolved Date Routine general medical exam ination at a health care facility 09/09/2010 05/26/2015 Overview: ################## OLD RECORDS IN PAPER CHART ################### 09/09/2010, from Dr. Karlo bray 09/09/2010 05/26/2015 Overview: Bilateral -- has done well with injections documented as of this encounter (statuses as of 04/28/2023) [facility]2011 History of Past illness Narrative* Problem Noted Date Diagnosed Date Resolved Date Routine general medical exam ination at a health care facility 09/09/2010 05/26/2015 Overview: ################## OLD RECORDS IN PAPER CHART ################### 09/09/2010, from Dr. Karlo bray 09/09/2010 05/26/2015 Overview: Bilateral -- has done well with injections documented as of this encounter (statuses as of 06/27/2023) [facility]2011 History of Past illness Narrative* Problem Noted Date Diagnosed Date Resolved Date Routine general medical exam ination at a health care facility 09/09/2010 05/26/2015 Overview: ################## OLD RECORDS IN PAPER CHART ################### 09/09/2010, from Dr. Karlo bray 09/09/2010 05/26/2015 Overview: Bilateral -- has done well with injections documented as of this encounter (statuses as of 06/27/2023) [facility] History of Past illness Narrative* Problem Noted Date Diagnosed Date Resolved Date Routine general medical exam ination at a health care facility 09/09/2010 05/26/2015 Overview: ################## OLD RECORDS IN PAPER CHART ################### 09/09/2010, from Dr. Karlo bray 09/09/2010 05/26/2015 Overview: Bilateral -- has done well with injections documented as of this encounter (statuses as of 07/10/2023) [facility] History of Past illness Narrative* Problem Noted Date Diagnosed Date Resolved Date Routine general medical exam ination at a health care facility 09/09/2010 05/26/2015 Overview: ################## OLD RECORDS IN PAPER CHART ################### 09/09/2010, from Dr. Karlo bray 09/09/2010 05/26/2015 Overview: Bilateral -- has done well with injections documented as of this encounter (statuses as of 07/15/2023) [facility] Essential hypertension- Primary Unspecified essential hypertension Primary osteoarthritis of knee, unspecified laterality NPH (normal pressure 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) [facility] Diagnosis Degeneration of lumbar intervertebral disc- Primary Degeneration of lumbar or lumbosacral intervertebral disc Pain in left hip Pain in joint, pelvic region and thigh Balance disorder Other symptoms involving nervous and musculoskeletal systems NPH (normal pressure 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) [facility] 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 [facility] 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 Bilateral carotid artery stenosis Occlusion and stenosis of carotid artery without mention of cerebral infarction Essential hypertension Unspecified essential hypertension Mixed hyperlipidemia Thyroid nodule Nontoxic uninodular goiter Elevated prostate specific antigen (PSA) BPH with obstruction/lower urinary tract symptoms Hypertrophy of prostate with urinary obstruction and other lower urinary tract symptoms (LUTS) Encounter for screening for malignant neoplasm of prostate Special screening for malignant neoplasm of prostate [facility] Diagnosis Generalized weakness- Primary Other malaise and fatigue Need for influenza vaccination Need for prophylactic vaccination and inoculation against influenza SOB (shortness of breath) Shortness of breath Need for COVID-19 vaccine [facility] Diagnosis 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 Ataxia Lack of coordination 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 [facility] Diagnosis SOB (shortness of breath) Shortness of breath [facility] Diagnosis Upper respiratory tract infection due to COVID-19 virus- Primary [facility] Diagnosis 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 Brain atrophy (HCC) Cerebral degeneration, unspecified Frequent falls Personal history of fall Bilateral carotid artery stenosis Occlusion and stenosis of carotid artery without mention of cerebral infarction Fluency disorder associated with underlying disease Essential hypertension Unspecified essential hypertension Mixed hyperlipidemia Hiatal hernia Diaphragmatic hernia without mention of obstruction or gangrene BPH with obstruction/lower urinary tract symptoms Hypertrophy of prostate with urinary obstruction and other lower urinary tract symptoms (LUTS) Elevated prostate specific antigen (PSA) Platelets decreased (HCC) Thrombocytopenia, unspecified Encounter for immunization Need for other specified prophylactic vaccination against single bacterial disease Screening for prostate cancer Special screening for malignant neoplasm of prostate [facility] Diagnosis BPH with obstruction/lower urinary tract symptoms Hypertrophy of prostate with urinary obstruction and other lower urinary tract symptoms (LUTS) Mixed hyperlipidemia [facility] Hospital discharge follow-up- Primary Other follow-up examination Sepsis due to urinary tract infection with acute renal failure and metabolic encephalopathy (HCC) Streptococcal septicemia Acute renal failure superimposed on stage 3a chronic kidney disease, unspecified acute renal failure type (HCC) 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 Platelets decreased (HCC) Thrombocytopenia, unspecified Prediabetes Other abnormal glucose Benign prostatic hyperplasia with incomplete bladder emptying [facility] Diagnosis Benign prostatic hyperplasia with incomplete bladder emptying documented in this encounter [facility] for referral (narrative)* Outpatient Procedure (Routine) - Authorized Specialty Diagnoses / Procedures Referred By Papito rothman Referred To [facility] Diagnoses SOB (shortness of breath) Procedures SPIROMETRY BASELINE ONLY SPMTRY W/VC EXPIRATORY MICHELE W/WO MXML VOL VNTJ Grey Dasilva PA-C [address] [place] [address] Respiratory [facility]elin [address] [place] [address] Referral ID Status Reason Start Date Expiration Date Visits Requested Visits Authorized [id number] Authorized Auto-Generat ed Referral 03/23/2022 04/22/2023 1 1 [facility] for referral (narrative)* Diagnostic Procedure Only (Routine) - Pending Review Specialty Diagnoses / Procedures Referred By Papito rothman Referred To Contact [facility] Diagnoses Benign prostatic hyperplasia with incomplete bladder emptying Procedures US PELVIS BLADDER US PELVIC NONOBSTETRIC IMAGE DCMTN LIMITED/F/U Grey Dasilva PA-C [address] [place] [address] [address] Referral ID Status Reason Start Date Expiration Date Visits Requested Visits Authorized [id number] Pending Review Auto-Generat ed Referral 07/10/2023 08/08/2024 1 1 [facility] for referral (narrative)* Diagnostic Procedure Only (Routine) - Closed Specialty Diagnoses / Procedures Referred By Papito rothman Referred To Contact [facility] Diagnoses Benign prostatic hyperplasia with incomplete bladder emptying Procedures US PELVIS BLADDER US PELVIC NONOBSTETRIC IMAGE DCMTN LIMITED/F/U Grey Dasilva PA-C [address] [place] [address] [place] [address] Referral ID Status Reason Start Date Expiration Date V isits Requested Visits Authorized [id number] Closed Auto-Generate d Referral 07/10/2023 08/08/2024 1 1 [facility] Summary Purpose Family History No Family History Records FoundNo Family History Records FoundNo Family History Records FoundNo Family History Records FoundNo Family History Records Found Advance Directives No Advanced Directives Records FoundDocuments on File Type Date Recorded Patient Type Rolling Machine Operator Expl anation Advance Directive(s) 06/02/2021 3:52 PM Documents on File Type Date Recorded Patient Type Rolling Machine Operator Expl anation Advance Directive(s) 06/02/2021 3:52 PM Reason for Referral Specialty Diagnoses / Procedures Referred By Contac t Referred To Contact [facility] Diagnoses 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 Procedures CONSULT TO SPEECH THERAPY OFFICE/OUTPATIENT [facility] MDM 60-74 MINUTES Grey Dasilva PA-C [address] [place] [address] [facility] [address] [address] Referral ID Status Reason Start Date Expiration Date Visits Requested Visits Authorized [id number] Authorized Auto-Generat ed Referral 10/02/2021 10/02/2022 99 99 Specialty Diagnoses / Procedures Referred By Contac t Referred To Contact Diagnoses 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 Communicating hydrocephalus (HCC) Procedures CONSULT TO SPEECH THERAPY Oneil Foote MD [address] [place] [address] Referral ID Status Reason Start Date Expiration Date Visits Requested Visits Authorized [id number] Ref Not Required PCP Requested Referral 2 03/25/2023 99 99 Specialty Diagnoses / Procedures Referred By Contac t Referred To Contact [facility] Diagnoses 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 Communicating hydrocephalus (HCC) Procedures CONSULT TO PHYSICAL THERAPY PHYSICAL THERAPY EVALUATION [facility] 45 MINS Oneil Foote MD [address] [place] [id number] [address] Referral ID Status Reason Start Date Expiration Date Visits Requested Visits Authorized [id number] Authorized PCP Requested Referral Auto-Generate d Referral 2 03/25/2023 99 99 Additional Source Comments (unrecognized sect ion and content) No Status Records FoundNo Status Records FoundNo Status Records FoundNo Status Records FoundNo Status Records Found INFORMATION SOURCE (unrecogn ized section and content) DATE CREATED AUTHOR AUTHOR'S ORGANIZ ATION 02/11/2021 [facility] DATE CREATED AUTHOR AUTHOR'S ORGANIZ ATION 09/26/2022 [facility] DATE CREATED AUTHOR AUTHOR'S ORGANIZ ATION 03/12/2023 [facility] DATE CREATED AUTHOR AUTHOR'S ORGANIZ ATION 07/15/2023 [facility] <item> Privacy Markings (unrecogniz ed section and content) Section Author: Chinyere Kirby PROHIBITION ON REDISCLOSURE OF CONFIDENTIAL INFORMATION This notice accompanies a disclosure of information concerning a client made to you with the consent of such client. Source Comments (unrecognize d section and content) In the event this informatio n is protected by the Federal Confidentiality of Alcohol and Drug Abuse Patient Records regulations: The Federal rules restrict any use of the information to criminally investigate or prosecute any alcohol or drug abuse patient.[facility] the event this information is protected by the Federal Confidentiality of Alcohol and Drug Abuse Patient Records regulations: The Federal rules restrict any use of the information to criminally investigate or prosecute any alcohol or drug abuse patient.[facility] the event this information is protected by the Federal Confidentiality of Alcohol and Drug Abuse Patient Records regulations: The Federal rules restrict any use of the information to criminally investigate or prosecute any alcohol or drug abuse patient.[facility] the event this information is protected by the Federal Confidentiality of Alcohol and Drug Abuse Patient Records regulations: The Federal rules restrict any use of the information to criminally investigate or prosecute any alcohol or drug abuse patient.[facility] the event this information is protected by the Federal Confidentiality of Alcohol and Drug Abuse Patient Records regulations: The Federal rules restrict any use of the information to criminally investigate or prosecute any alcohol or drug abuse patient.[facility] the event this information is protected by the Federal Confidentiality of Alcohol and Drug Abuse Patient Records regulations: The Federal rules restrict any use of the information to criminally investigate or prosecute any alcohol or drug abuse patient.[facility] the event this information is protected by the Federal Confidentiality of Alcohol and Drug Abuse Patient Records regulations: The Federal rules restrict any use of the information to criminally investigate or prosecute any alcohol or drug abuse patient.[facility] the event this information is protected by the Federal Confidentiality of Alcohol and Drug Abuse Patient Records regulations: The Federal rules restrict any use of the information to criminally investigate or prosecute any alcohol or drug abuse patient.[facility] the event this information is protected by the Federal Confidentiality of Alcohol and Drug Abuse Patient Records regulations: The Federal rules restrict any use of the information to criminally investigate or prosecute any alcohol or drug abuse patient.[facility] the event this information is protected by the Federal Confidentiality of Alcohol and Drug Abuse Patient Records regulations: The Federal rules restrict any use of the information to criminally investigate or prosecute any alcohol or drug abuse patient.[facility] the event this information is protected by the Federal Confidentiality of Alcohol and Drug Abuse Patient Records regulations: The Federal rules restrict any use of the information to criminally investigate or prosecute any alcohol or drug abuse patient.[facility] the event this information is protected by the Federal Confidentiality of Alcohol and Drug Abuse Patient Records regulations: The Federal rules restrict any use of the information to criminally investigate or prosecute any alcohol or drug abuse patient.[facility] the event this information is protected by the Federal Confidentiality of Alcohol and Drug Abuse Patient Records regulations: The Federal rules restrict any use of the information to criminally investigate or prosecute any alcohol or drug abuse patient.[facility] the event this information is protected by the Federal Confidentiality of Alcohol and Drug Abuse Patient Records regulations: The Federal rules restrict any use of the information to criminally investigate or prosecute any alcohol or drug abuse patient.[facility] the event this information is protected by the Federal Confidentiality of Alcohol and Drug Abuse Patient Records regulations: The Federal rules restrict any use of the information to criminally investigate or prosecute any alcohol or drug abuse patient.[facility] the event this information is protected by the Federal Confidentiality of Alcohol and Drug Abuse Patient Records regulations: The Federal rules restrict any use of the information to criminally investigate or prosecute any alcohol or drug abuse patient.[facility] the event this information is protected by the Federal Confidentiality of Alcohol and Drug Abuse Patient Records regulations: The Federal rules restrict any use of the information to criminally investigate or prosecute any alcohol or drug abuse patient.[facility] the event this information is protected by the Federal Confidentiality of Alcohol and Drug Abuse Patient Records regulations: The Federal rules restrict any use of the information to criminally investigate or prosecute any alcohol or drug abuse patient.[facility] the event this information is protected by the Federal Confidentiality of Alcohol and Drug Abuse Patient Records regulations: The Federal rules restrict any use of the information to criminally investigate or prosecute any alcohol or drug abuse patient.[facility] the event this information is protected by the Federal Confidentiality of Alcohol and Drug Abuse Patient Records regulations: The Federal rules restrict any use of the information to criminally investigate or prosecute any alcohol or drug abuse patient.[facility] the event this information is protected by the Federal Confidentiality of Alcohol and Drug Abuse Patient Records regulations: The Federal rules restrict any use of the information to criminally investigate or prosecute any alcohol or drug abuse patient.[facility] the event this information is protected by the Federal Confidentiality of Alcohol and Drug Abuse Patient Records regulations: The Federal rules restrict any use of the information to criminally investigate or prosecute any alcohol or drug abuse patient.[facility] the event this information is protected by the Federal Confidentiality of Alcohol and Drug Abuse Patient Records regulations: The Federal rules restrict any use of the information to criminally investigate or prosecute any alcohol or drug abuse patient.[facility] the event this information is protected by the Federal Confidentiality of Alcohol and Drug Abuse Patient Records regulations: The Federal rules restrict any use of the information to criminally investigate or prosecute any alcohol or drug abuse patient.[facility] the event this information is protected by the Federal Confidentiality of Alcohol and Drug Abuse Patient Records regulations: The Federal rules restrict any use of the information to criminally investigate or prosecute any alcohol or drug abuse patient.[facility] the event this information is protected by the Federal Confidentiality of Alcohol and Drug Abuse Patient Records regulations: The Federal rules restrict any use of the information to criminally investigate or prosecute any alcohol or drug abuse patient.[facility] the event this information is protected by the Federal Confidentiality of Alcohol and Drug Abuse Patient Records regulations: The Federal rules restrict any use of the information to criminally investigate or prosecute any alcohol or drug abuse patient.[facility] the event this information is protected by the Federal Confidentiality of Alcohol and Drug Abuse Patient Records regulations: The Federal rules restrict any use of the information to criminally investigate or prosecute any alcohol or drug abuse patient.[facility] the event this information is protected by the Federal Confidentiality of Alcohol and Drug Abuse Patient Records regulations: The Federal rules restrict any use of the information to criminally investigate or prosecute any alcohol or drug abuse patient.[facility] the event this information is protected by the Federal Confidentiality of Alcohol and Drug Abuse Patient Records regulations: The Federal rules restrict any use of the information to criminally investigate or prosecute any alcohol or drug abuse patient.[facility] Reason for Visit (unrecogniz ed section and content) Reason Comments Orders Reason Comments Order request Reason Comments HH PT POC Reason Comments Home Health Point of Care Results Reason Comments 6 Month Exam Reason Comments Nurse Triage Call daughter calls in up set wishes to speak with provider directly. Reason Onset Date Comments Follow Up Immunizations 03/23/2022 Flu vaccination Reason Comments Results Reason Comments Appointment Reason Comments Orders Reason Comments Patient Update Reason Comments Physical Therapy Plan of Care Reason Comments Spirometry Specialty Diagnoses / Procedures Referred By Contac t Referred To Contact [facility] Diagnoses SOB (shortness of breath) Procedures SPIROMETRY BASELINE ONLY SPMTRY W/VC EXPIRATORY MICHELE W/WO MXML VOL VNTJ Grey Dasilva PA-C [address] [place] [address] Respiratory [facility] [address] [place] [address] Referral ID Status Reason Start Date Expiration Date V isits Requested Visits Authorized [id number] Closed Auto-Generate d Referral 03/23/2022 04/22/2023 1 1 Reason Comments Waitlist Status Update Reason Comments ST plan of care, needs call back with ap proval Reason Comments verbal orders Reason Comments Covid Positive Home test 01-02-23 Reason Comments Covid Positive Reason Onset Date Comments Refill Request 04/28/2023 Reason Comments Home Health Orders Reason Onset Date Comments Transition Of Care 06/27/2023 Reason Comments FYI: family taking pt to [facility] Reason Comments HH plan of care Reason Comments Hospital F/U Reason Comments Radiology US Specialty Diagnoses / Procedures Referred By Papito rothman Referred To Contact US IMAGING Diagnoses Benign prostatic hyperplasia with incomplete bladder emptying Procedures US PELVIS BLADDER US PELVIC NONOBSTETRIC IMAGE DCMTN LIMITED/F/U Grye Dasilva PA-C [address] [place] [address] [place] [address] Referral ID Status Reason Start Date Expiration Date V isits Requested Visits Authorized [id number] Closed Auto-Generate d Referral 07/10/2023 08/08/2024 1 1 Care Teams (unrecognized sec tion and content) Ent Nurse Relationship Specialty Start Date End Date Grey Dasilva PA-C [address] [place] [address] PCP - General Family Practice 05/28/21 Grey Dasilva PA-C [address] [place] [address] NI Referring Team Family Practice 02/17/21 Ent Nurse Relationship Specialty Start Date End Date Grey Dasilva PA-C [address] [place] [address] PCP - General Family Practice 05/28/21 Grey Dasilva PA-C [address] [place] [address] NI Referring Team Family Practice 02/17/21 Ent Nurse Relationship Specialty Start Date End Date Grey Dasilva PA-C [address] [place] [address] PCP - General Family Practice 05/28/21 Grey Dasilva PA-C [address] [place] [address] NI Referring Team Family Practice 02/17/21 Ent Nurse Relationship Specialty Start Date End Date Grey Dasilva PA-C [address] [place] [address] PCP - General Family Practice 05/28/21 Grey Dasilva PA-C [address] [place] [address] NI Referring Team Family Practice 02/17/21 Ent Nurse Relationship Specialty Start Date End Date Grey Dasilva PA-C [address] [place] [address] PCP - General Family Practice 05/28/21 Grye Dasilva PA-C [address] [place] [address] NI Referring Team Family Practice 02/17/21 Ent Nurse Relationship Specialty Start Date End Date Grey Dasilva PA-C [address] [place] [address] PCP - General Family Medicine 05/28/21 Grey Dasilva PA-C [address] [place] [address] NI Referring Team Family Medicine 02/17/21 Ent Nurse Relationship Specialty Start Date End Date Grey Dasilva PA-C [address] [place] [address] PCP - General Family Medicine 05/28/21 Grey Dasilva PA-C [address] [place] [address] NI Referring Team Family Medicine 02/17/21 Ent Nurse Relationship Specialty Start Date End Date Grey Dasilva PA-C [address] [place] [address] PCP - General Family Medicine 05/28/21 Grey Dasilva PA-C [address] [place] [address] NI Referring Team Family Medicine 02/17/21 Ent Nurse Relationship Specialty Start Date End Date Grey Dasilva PA-C [address] [place] [address] PCP - General Family Medicine 05/28/21 Grey Dasilva PA-C [address] [place] [address] NI Referring Team Family Medicine 02/17/21 Ent Nurse Relationship Specialty Start Date End Date Grey Dasilva PA-C [address] [place] [address] PCP - General Family Medicine 05/28/21 Grey Dasilva PA-C [address] [place] [address] NI Referring Team Family Medicine 02/17/21 Ent Nurse Relationship Specialty Start Date End Date Grey Dasilva PA-C [address] [place] [address] PCP - General Family Medicine 05/28/21 Grey Dasilva PA-C [address] [place] [address] NI Referring Team Family Medicine 02/17/21 Ent Nurse Relationship Specialty Start Date End Date Grey Dasilva PA-C [address] [place] [address] PCP - General Family Medicine 05/28/21 Grey Dasilva PA-C [address] [place] [address] NI Referring Team Family Medicine 02/17/21 Ent Nurse Relationship Specialty Start Date End Date Grey Dasilva PA-C [address] [place] [address] PCP - General Family Medicine 05/28/21 Grey Dasilva PA-C [address] [place] [address] NI Referring Team Family Medicine 02/17/21 Ent Nurse Relationship Specialty Start Date End Date Grey Dasilva PA-C [address] [place] [address] PCP - General Family Medicine 05/28/21 Grey Dasilva PA-C [address] [place] [address] NI Referring Team Family Medicine 02/17/21 Ent Nurse Relationship Specialty Start Date End Date Grey Dasilva PA-C [address] [place] [address] PCP - General Family Medicine 05/28/21 Grey Dasilva PA-C [address] [place] [address] NI Referring Team Family Medicine 02/17/21 Ent Nurse Relationship Specialty Start Date End Date Grey Dasilva PA-C [address] [place] [address] PCP - General Family Medicine 05/28/21 Grey Dasilva PA-C [address] [place] [address] NI Referring Team Family Medicine 02/17/21 Ent Nurse Relationship Specialty Start Date End Date Grey Dasilva PA-C [address] [place] [address] PCP - General Family Medicine 05/28/21 Grey Dasilva PA-C [address] [place] [address] NI Referring Team Family Medicine 02/17/21 Ent Nurse Relationship Specialty Start Date End Date Grey Dasilva PA-C [address] [place] [address] PCP - General Family Medicine 05/28/21 Grey Dasilva PA-C [address] [place] [address] NI Referring Team Family Medicine 02/17/21 Ent Nurse Relationship Specialty Start Date End Date Grey Dasilva PA-C [address] [place] [address] PCP - General Family Medicine 05/28/21 Grey Dasilva PA-C [address] [place] [address] NI Referring Team Family Medicine 02/17/21 Ent Nurse Relationship Specialty Start Date End Date Grey Dasilva PA-C [address] [place] [address] PCP - General Family Medicine 05/28/21 Grey Dasilva PA-C [address] [place] [address] NI Referring Team Family Medicine 02/17/21 Ent Nurse Relationship Specialty Start Date End Date Grey Dasilva PA-C [address] [place] [address] PCP - General Family Medicine 05/28/21 Grey Dasilva PA-C [address] [place], [place] [address] NI Referring Team Family Medicine 02/17/21 Ent Nurse Relationship Specialty Start Date End Date Grey Dasilva PA-C [address] [place], [place] [id number] PCP - General Family [facility] 05/28/21 Grey Dasilva PA-C [address] [place], [place] [id number] NI Referring Team Family Medicine 02/17/21 FOR RECORDS PERTAINING TO PATIENTS WHO ARE OR HAVE BEEN ENROLLED IN A CHEMICAL DEPENDENCY/SUBSTANCEABUSE PROGRAM, SOME INFORMATION MAY BE OMITTED. This clinical summary was aggregated from multiple sources. Caution should be exercised in using it in the provision of clinical care. This summary normalizes information from multiple sources, and as a consequence, information in this document may materially change the coding, format and clinical context of patient data. In addition, data may be omitted in some cases. CLINICAL DECISIONS SHOULD BE BASED ON THE PRIMARY CLINICAL RECORDS. [email or web address] [facility]. provides no warranty or guarantee of the accuracy or completeness of information in this document.
[2023-07-16] MEDS: Nitrofurantoin Macrocrystals 100 MG Capsule PO (13:07)
[2023-07-16 13:28] VITALS: BP 102/48; PULSE 103; RESP 22; TEMP 36.3; O2SAT 95
== END 2023-07-16 13:29 | disposition home or self-care (01) ==
PROVIDERS: Emergency Provider Emergency Medicine; PCP Family Medicine; Visit Provider Emergency Medicine
DX: N39.0 Urinary tract infection, site not specified (principal); F03.90 Unspecified dementia, unspecified severity, without behavioral disturbance, psychotic disturbance, mood disturbance, and anxiety; N40.0 Benign prostatic hyperplasia without lower urinary tract symptoms; E78.5 Hyperlipidemia, unspecified; Z79.899 Other long term (current) drug therapy
CPT/HCPCS: 71045; 80053; 81001; 85025; 87086; 87088; 87186; 96361; 96374; 99285; P9612; J2405

== ENCOUNTER 2023-08-27 13:20 | Inpatient (IN) | payer MEDICARE, OTHER, SELFPAY ==
[2023-08-27] VITALS (9 sets, daily range): BP systolic 126–162; BP diastolic 66–83; PULSE 72–105; RESP 16–24; TEMP 36.6–37.1; O2SAT 95–100; BMI 28.6; BMI 22.2
--- NOTE | 2023-08-27 13:46 | RAD_ITS ---
STUDY: X-RAY CHEST REASON FOR EXAM: Male, 88 years old. Chest pain TECHNIQUE: Single AP portable view of the chest. COMPARISON: July 16, 2023 FINDINGS: There are monitoring devices. The lungs are clear and expanded. There is no demonstrated pleural abnormality. Normal size heart. Normal mediastinum and salena. Normal visualized pulmonary arteries. Normal visualized aortic arch and descending thoracic aorta. There is demineralization of the osseous structures. There is degenerative change of the spine and shoulders. There is postoperative change of the right proximal humerus. There is no demonstrated abnormality of the visualized soft tissue structures of the upper abdomen. RAD/Chest 1 View (Portable) IMPRESSION: No acute cardiopulmonary disease. Electronically Signed: Gabo Gillis MD at 14:00 EDT ,
--- NOTE | 2023-08-27 13:46 | EKG12_ITS ---
Test Reason : CP Blood Pressure : / mmHG Vent. Rate : 094 BPM Atrial Rate : 094 BPM P-R Int : 148 ms QRS Dur : 090 ms QT Int : 358 ms P-R-T Axes : 055 -65 067 degrees QTc Int : 447 ms Sinus rhythm with marked sinus arrhythmia Left anterior fascicular block ST & T wave abnormality, consider anterior ischemia Abnormal ECG Confirmed by CHEYENNE ORNELAS, AVA ([id number]), assistant editor ALONA GUY ([id number]) on 08/29/2023 11:11:04 AM Referred By: SOTO Confirmed By:AVA QUINN MD
[2023-08-27 13:57] LABS: Absolute Lymphocyte Count 1.15 X10^3/uL (0.83-4.51); Absolute Neutrophil Count 6.5 X10^3/uL (2.0-7.7); Basophil# 0.03 X10^3/uL; Basophil% 0.4 % (0-1); Eosinophil# 0.07 X10^3/uL; Eosinophils% 0.8 % (0-5); Hematocrit 41.2 % (40-54); Hemoglobin 13.2 g/dL (13.0-16.5); Lymphocyte # 1.15 X10^3/ul (0.83-4.51); Lymphocyte % 13.5 % (19-41); Mean Corpuscular Hgb 31.4 pg (27.0-32.0); Mean Corpuscular Volume 97.9 fL (80-94); Mean Platelet Vol. 9.9 fl (6.2-12.0); Monocyte# 0.77 X10^3/uL; NRBC Flagged by Analyzer 0 % (0-5); Neutrophil # 6.46 X10^3/uL (2.7-7.7); Neutrophil % 75.9 % (47-70); Platelet Count 160 K/mm3 (150-450); RBC Distribution Width CV 13.9 % (11.6-14.6); RBC Distribution Width SD 49.8 fl (35.1-43.9); Red Blood Count 4.21 M/mm3 (4.6-6.2); White Blood Count 8.5 K/mm3 (4.4-11.0)
[2023-08-27 14:24] LABS: Anion Gap 1 (5-15); BUN 22 mg/dL (7-18); BUN/Creat Ratio 22.4 RATIO (10-20); Calcium,Total 8.9 mg/dL (8.5-10.1); Chloride 108 mmol/L (98-107); Creatinine, Serum 0.98 mg/dL (0.70-1.30); EST Glomerular Filtration Rate 77 mL/min (>60); Est Glom Filt Rate - Afr Amer 93 mL/min (>60); Estimated Creatinine Clearance 66.87 ml/min; Glucose 152 mg/dL (74-106); Potassium 4.6 mmol/L (3.5-5.1); Sodium Level 140 mmol/L (136-145); Troponin-I HS (w/2H Reflex) 177 pg/mL (3.0-78.0)
[2023-08-27] MEDS: Heparin Injection (Vial) 5,000 UNIT/ML VIAL 4000 UNIT IV (14:44)
[2023-08-27] MEDS: Metoprolol Tartrate 5 MG/5 ML Vial IV (14:46)
[2023-08-27 14:48] LABS: Lipase 39 U/L (13-75)
--- NOTE | 2023-08-27 14:51 | EKG12_ITS ---
Test Reason : REPEAT Blood Pressure : / mmHG Vent. Rate : 080 BPM Atrial Rate : 000 BPM P-R Int : 000 ms QRS Dur : 088 ms QT Int : 406 ms P-R-T Axes : 000 -55 125 degrees QTc Int : 468 ms SINUR RHYTHM Left anterior fascicular block ST & T wave abnormality, consider lateral ischemia Prolonged QT Abnormal ECG Confirmed by CHEYENNE ORNELAS, AVA ([id number]), newspaper editor managing ALONA GUY ([id number]) on 08/29/2023 11:08:51 AM Referred By: Confirmed By:AVA QUINN MD
[2023-08-27 14:58] LABS: Prothrombin Time (Protime)PT. 12.8 SECONDS (11.7-14.9)
[2023-08-27 14:59] LABS: Partial Thromboplast Time 27.8 Seconds (24.1-36.2)
[2023-08-27] MEDS: HEPARIN/D5w 25,000 UNITS 25,000 UNITS/250 ML IV.SOLN. 10 UNITS CONT INF (15:06)
--- NOTE | 2023-08-27 15:13 | EKG12_ITS ---
Test Reason : RIGHT SIDED EKG Blood Pressure : / mmHG Vent. Rate : 070 BPM Atrial Rate : 070 BPM P-R Int : 158 ms QRS Dur : 088 ms QT Int : 416 ms P-R-T Axes : 019 -51 121 degrees QTc Int : 449 ms Normal sinus rhythm Left anterior fascicular block Possible Lateral infarct , age undetermined Abnormal ECG Confirmed by CHEYENNE ORNELAS, AVA ([id number]), editor magazine ALONA GUY ([id number]) on 08/29/2023 11:09:40 AM Referred By: MANNY Confirmed By:AVA QUINN MD
--- NOTE | 2023-08-27 15:23 | HP.PCM.HOS_ITS ---
HPI - General General Date of Admission: 08/27/23 Date of Service: 08/27/23 Chief Complaint: NSTEMI HPI Narrative ALYSSA ALLAN, is a 88 M who presents to the ED with concerns regarding chest pain. He has a history of mild progressive dementia, bilateral kidney cysts, Hypertension, dyslipidemia. This morning around 11 AM he started developing severe retrosternal chest pain, felt like a crushing sensation in his chest. EMS was called for the same. He received 324 mg of aspirin, and was brought to the ED. His EKG in the ED was suggestive of ST depression in V2 to V4, mild ST elevation in V5 to V6. The changes were not dynamic and resolved on repeat EKG. Cardiology was consulted, given the elevated troponin levels, and ST depression seen on EKG there is a high suspicion for NSTEMI. The plan is for cardiac catheterization tomorrow. At the time of interview, patient is relaxed, laying flat in his bed, endorses no pain at this time. [facility] Medical History Dementia Frequent falls Hyperlipidemia Non-smoker Prostate disorder Rotator cuff arthropathy Home Medications multivitamin 1 ea PO DAILY HEALTH MAINTENANCE 05/15/18 [History Last Taken 06/22/23] rosuvastatin 10 mg tablet 10 mg PO DAILY CHOLESTEROL 05/15/18 [History Last Taken 06/22/23] quetiapine 25 mg tablet 25 mg PO QHS 30 days #30 tabs 06/25/23 [Rx Last Taken Unknown] finasteride 5 mg tablet 5 mg PO DAILY 08/27/23 [History Last Taken 08/27/23] tamsulosin 0.4 mg capsule 0.4 mg PO DAILY 08/27/23 [History Last Taken 08/27/23] Allergy/AdvReac Type Severity Reaction Status Date / Time No Known Allergies Allergy Verified 06/23/23 11:04 Social History Smoking Status: Never smoker ROS ROS Narrative Provided by daughter at bedside Constitutional Constitutional: Denies anorexia, change in weight, chills, fatigue, fever(s), m alaise, night sweats, weakness or other Eyes Eyes: Denies blurry vision, change in eye color, change in vision, discharge from eye(s), double vision, erythema, eye pain, loss of vision or other ENT HEENT: Denies abnormal hearing, dysphagia, ear pain, epistaxis, headache(s), hearing loss, nasal congestion, nasal discharge, post nasal drip, sinus pressure, sore throat or other Cardiovascular Cardiovascular: Reports chest pain and claudication; Denies dyspnea on exertion, edema, lightheadedness, orthopnea, palpitations, paroxysmal nocturnal dyspnea or syncope Respiratory/Chest Respiratory/Chest: Denies cough, dyspnea, excessive phlegm production, hemoptysis, productive cough, shortness of breath at rest, shortness of breath with exertion, wheezing or other Gastrointestinal Gastrointestinal: Denies abdominal pain, coffee ground emesis, constipation, diarrhea, dyspepsia, hematemesis, hematochezia, loose stools, melena, nausea, vomiting or other Genitourinary Genitourinary: Denies burning urination, difficulty urinating, dysuria, hematuria, nocturia, urinary frequency, urinary hesitancy, urinary incontinence, urinary urgency or other Musculoskeletal Musculoskeletal: Denies arthralgias, back pain, joint pain, joint stiffness, joint swelling, myalgias, neck pain or other Neurologic Neurologic: Denies abnormal gait, abnormal speech, confusion, disequilibrium, dizziness, focal weakness, headache(s), numbness, paresthesias, seizure-like activity, seizures, syncope, tingling, tremor(s) or other Psychiatric Psychiatric: Denies anxiety, depression, homicidal ideation, suicidal ideation or other Endocrine Endocrinology: Denies change in body appearance, cold intolerance, excessive sweating, heat intolerance, polydipsia, polyuria or other Hematologic/Lymphatic Hematologic/Lymphatic: Denies anemia, easy bleeding, easy bruising, lymphadenopathy or other Allergic/Immunologic Allergic/Immunologic: Denies rhinitis, hives, eczemia, asthma or other Vital Signs Vital Signs Vital Signs: 08/27/23 13:21 08/27/23 13:59 08/27/23 14:15 Temperature 98.5 F Temperature Source Temporal Pulse Rate 87 88 Respiratory Rate 18 23 H Blood Pressure 162/78 H 156/67 H Blood Pressure Mean 106 96 Pulse Ox 95 100 97 Oxygen Delivery Method Room Air Room Air Room Air 08/27/23 14:30 08/27/23 14:49 08/27/23 15:00 Temperature 98 F Temperature Source Pulse Rate 94 105 H 72 Respiratory Rate 22 H 22 H 24 H Blood Pressure 157/74 H 159/83 H 141/70 H Blood Pressure Mean 101 108 93 Pulse Ox 99 96 98 Oxygen Delivery Method Room Air Room Air Weight Weight: 217 lb 6.012 oz Body Mass Index (BMI) 28.6 Physical Exam Const alert Constitutional Narrative: Oriented to time and person HEENT normocephalic Mouth: oral and palatal mucosa normal Resp normal respiratory effort Cardio regular rate, regular rhythm, S1 normal heart sound, S2 normal heart sound and no murmurs GI normal to inspection, nondistended, normoactive bowel sounds Extremity normal to inspection and full ROM Extremity Narrative: No pedal edema Neuro Sensorium / Orientation: awake, alert, oriented to place and oriented to time Results Medical Records Data Attestation: I reviewed the patient's medical records Lab / Micro Data Attestation: I reviewed the patient's lab results. Lab results narrative: Elevated high-sensitivity troponin levels, normal CBC, BUN 22, glucose 152. 08/27/23 13:30 08/27/23 13:30 Labs: Laboratory Results - last 24 hr 08/27/23 13:30: WBC 8.5, RBC 4.21 L, Hgb 13.2, Hct 41.2, MCV 97.9 H, MCH 31.4, MCHC 32.0, RDW Std Deviation 49.8 H, RDW Coeff of Tia 13.9, Plt Count 160, MPV 9.9, Immature Gran % (Auto) 0.400, Neut % (Auto) 75.9 H, Lymph % (Auto) 13.5 L, [place] % (Auto) 9.0, Eos % (Auto) 0.8, Baso % (Auto) 0.4, Absolute Neuts (auto) 6.5, Absolute Lymphs (auto) 1.15, Nucleated RBC % 0, PT 12.8, INR 1.0, APTT 27.8, Sodium 140, Potassium 4.6, Chloride 108 H, Carbon Dioxide 31.0, Anion Gap 1 L, BUN 22 H, Creatinine 0.98, Estim Creat Clear Calc 66.87, Est GFR (MDRD) Af Amer 93, Est GFR (MDRD) Non-Af 77, BUN/Creatinine Ratio 22.4 H, Glucose 152 H, Calcium 8.9, Troponin I High Sens 177 H*, Lipase 39 EKG Initial EKG: Attestation: I personally reviewed and interpreted this EKG as follows: Prior EKG tracings: available for review EKG Rhythm Intrepretation: Sinus Rhythm Interpretation: Left axis, sinus rhythm, normal rate, ST depression V2-4, mild ST elevation V5 V6. Follow-up EKG: Attestation: I personally reviewed and interpreted this EKG as follows: Prior EKG tracings: available for review EKG Rhythm Intrepretation: Sinus Rhythm Interpretation: Left axis, normal rate, no ST-T changes, no Q waves. Imaging Radiology Impression Chest X-Ray 08/27/23 13:46 IMPRESSION: No acute cardiopulmonary disease. Electronically Signed: Gabo Gillis MD at 14:00 EDT , Assessment & Plan Assessment/Plan (1) NSTEMI (non-ST elevated myocardial infarction): PLAN: Plan 88-year-old gentleman with a history of hypertension, dyslipidemia presents to the ED with concerns regarding chest pain and findings suggestive of non-STEMI ST elevation myocardial infarction. Cardiology has been consulted, plan is for cardiac catheterization tomorrow. At this time he is hemodynamically stable and his symptoms have subsided. 1. NSTEMI: -Nonmodifiable risk factors includes age and gender, modifiable risk factors include history of dyslipidemia -Started on UFH infusion in the ED, continue as per NSTEMI protocol -Cardiology following -Aspirin 81 mg daily, start on Plavix 75 mg [discussed with cardiology, given his dementia unlikely to be of CABG candidate] -Transfer to PCU and close telemetry monitoring -Sublingual nitrate for pain relief -Metoprolol tartrate 50 mg twice daily with close monitoring of heart rate 2. Hypertension: Continue close monitoring, will initiate losartan if blood pressure not controlled after metoprolol 3. Dyslipidemia: Switch to atorvastatin 80 mg at bedtime 4. Chest pain: Asymptomatic at this time, nitrates and if not controlled with that morphine as needed. 5. DVT prophylaxis: Already on anticoagulation 6. Dementia: Frequent reorientation in the hospital high risk of delirium. This has been discussed with the daughter also. Charges/Coding Visit Charges Inpatient E&M: 54681 Init Hosp L2
--- NOTE | 2023-08-27 15:35 | EDS_ITS ---
HPI History of Present Illness Chief Complaint: Chest Pain Narrative Narrative: Patient is a 88-year-old male who is presenting by EMS secondary to chest pain, chest pressure. Patient states around 11:00 this morning had a squeezing sensation across his chest. This did not radiate into his neck, jaw, back, or arms. Patient daughter is at bedside, she is a good source of history along with the patient. Patient is a very functional 88-year-old male, lives at home with his daughter. Patient ambulates with a walker. Patient has no cardiac history. Patient has never had a stress test or echocardiogram. Patient has a history of prostate and cholesterol, otherwise takes no other medications. Patient was given 4 baby aspirin by EMS, no nitro. When I evaluated the patient, he no longer had any chest pain, tightness, squeezing sensation, he was pain-free. Patient has had no recent fall or trauma. Patient still no recent lifting, twisting or turning. Patient takes no aspirin daily. Patient has no recent traveling. No recent surgeries. Patient is alert and orient x 3, GCS 15, patient looks well. No shortness of breath, nausea, clamminess with a chest squeezing sensation that he had. He had no recent fever or chills. No abdominal pain, nausea, vomiting, or any other acute complaints. [facility] Medical History Dementia Frequent falls Hyperlipidemia Non-smoker Prostate disorder Rotator cuff arthropathy Home Medications multivitamin 1 ea PO DAILY HEALTH MAINTENANCE 05/15/18 [History Last Taken 06/22/23] rosuvastatin 10 mg tablet 10 mg PO DAILY CHOLESTEROL 05/15/18 [History Last Taken 06/22/23] quetiapine 25 mg tablet 25 mg PO QHS 30 days #30 tabs 06/25/23 [Rx Last Taken Unknown] finasteride 5 mg tablet 5 mg PO DAILY 08/27/23 [History Last Taken 08/27/23] tamsulosin 0.4 mg capsule 0.4 mg PO DAILY 08/27/23 [History Last Taken 08/27/23] Allergy/AdvReac Type Severity Reaction Status Date / Time No Known Allergies Allergy Verified 06/23/23 11:04 Social History Smoking Status: Never smoker ROS ROS ED ROS Narrative REVIEW OF SYSTEMS: Unless otherwise stated in this report the patient's positive and negative responses for review of systems for constitutional, eyes, ENT, cardiovascular, respiratory, gastrointestinal, neurological, , musculoskeletal, and integument systems and related systems to the presenting problem are either stated in the history of present illness or were not pertinent or were negative for the symptoms and/or complaints related to the presenting medical problem. EXAM Physical Exam Narrative Exam Narrative: Vital signs reviewed and patient is not hypoxic. General: The patient appears well and in no apparent distress. Patient is resting comfortably on cart. Not toxic, lethargic, or listless. Skin: Warm, dry, no pallor noted. There is no rash noted. Head: Normocephalic, atraumatic Eye: Normal conjunctiva, no drainage, EOMI. PERRL. Ears, Nose, Mouth, and Throat: oral mucosa is moist. Nares patent. Mouth without vesicles. Cardiovascular: Regular Rate and Rhythm, no murmurs, gallops, or rubs. Patient has no reproduction of pain to his anterior, lateral, posterior chest wall. Respiratory: Patient is in no distress, no accessory muscle use, lungs are clear to auscultation, no wheezing, rales or rhonchi Back: non-tender, no CVA tenderness bilaterally to percussion. NO CTLS midline or paraspinal tenderness to palpation. GI: Soft, no midepigastric tenderness to palpation, no tenderness to palpation, no masses appreciated. No rebound, guarding, or rigidity noted. Musculoskeletal: The patient has full range of motion of all extremities and joints with no difficulty. Patient has no motor, no sensory deficits. Neurological: A&O x4, normal speech, no focal neurological deficits. Psychiatric: Cooperative Const Vital Signs: 08/27/23 13:21 08/27/23 13:59 08/27/23 14:15 Temperature 98.5 F Temperature Source Temporal Pulse Rate 87 88 Respiratory Rate 18 23 H Blood Pressure 162/78 H 156/67 H Blood Pressure Mean 106 96 Pulse Ox 95 100 97 Oxygen Delivery Method Room Air Room Air Room Air 08/27/23 14:30 08/27/23 14:49 08/27/23 15:00 Temperature 98 F Temperature Source Pulse Rate 94 105 H 72 Respiratory Rate 22 H 22 H 24 H Blood Pressure 157/74 H 159/83 H 141/70 H Blood Pressure Mean 101 108 93 Pulse Ox 99 96 98 Oxygen Delivery Method Room Air Room Air MDM MDM MDM Narrative Medical decision making narrative: Patient's initial EKG showed ST depression to the anterior lateral leads, artifact noted, no ST elevation. Chest x-ray showed no acute findings. Patient's lab work showed no significant changes or findings besides troponin of 177. Patient lipase is negative, electrolytes are within normal limits. Patient has a heart score of 6, for his story, EKG changes, age, and risk factors. After troponin 177 was received, I did speak to Dr. Allred at 1429. He recommended to give patient a dose of Lopressor and start patient 50 mg metoprolol twice daily. He also recommended to start a heparin bolus and drip as well. 14[address] speak [address] Simms. He came to see and evaluate the patient in the ER as well. He requested a second EKG along with a right-sided EKG. Both of which showed some normalization of his ST depression, did show T wave inversion in V5, V6 in 1 and aVL on the second EKG, right-sided EKG did not show any significant posterior wall involvement. 20 minutes was spent at bedside by myself discussing end-of-life care, DNR education. Patient is currently a DNR CCA, DO NOT INTUBATE. Yes BiPAP. Paperwork was signed, a copy was given this to the daughter, patient was able to sign, understands and agrees with this. Dr Simms did speak to the patient and verified DNR CCA, DO NOT INTUBATE as well. Patient and daughter were very thankful for the time and education Spent at bedside by myself with multiple bedside visits. Patient will be admitted to Dr. Simms with Dr. Allred and cardiology in consultation. Cardiac cath education was done at bedside as well if that would occur during this hospitalization. Patient is agreeing to cardiac cath if needed. Critical care time 35 minutes exclusive from separate billable procedures that were performed. The following was considered in the determination of critical care but not limited to the level of medical decision making, intensive cardiac and/or respiratory monitoring, frequent vital sign monitoring, evaluation of laboratory studies, evaluation of radiographic studies, oxygen monitoring, and constant monitoring and speaking to family at bedside Lab Data Labs: Laboratory Results - last 24 hr 08/27/23 13:30 WBC 8.5 RBC 4.21 L Hgb 13.2 Hct 41.2 MCV 97.9 H MCH 31.4 MCHC 32.0 RDW Std Deviation 49.8 H RDW Coeff of Tia 13.9 Plt Count 160 MPV 9.9 Immature Gran % (Auto) 0.400 Neut % (Auto) 75.9 H Lymph % (Auto) 13.5 L [place] % (Auto) 9.0 Eos % (Auto) 0.8 Baso % (Auto) 0.4 Absolute Neuts (auto) 6.5 Absolute Lymphs (auto) 1.15 Nucleated RBC % 0 PT 12.8 INR 1.0 APTT 27.8 Sodium 140 Potassium 4.6 Chloride 108 H Carbon Dioxide 31.0 Anion Gap 1 L BUN 22 H Creatinine 0.98 Estim Creat Clear Calc 66.87 Est GFR (MDRD) Af Amer 93 Est GFR (MDRD) Non-Af 77 BUN/Creatinine Ratio 22.4 H Glucose 152 H Calcium 8.9 Troponin I High Sens 177 H* Lipase 39 Radiography Chest X-Ray - ED: Read by ED Physician (Chest x-ray shows no acute cardiopulmonary disease, no infiltrate, no effusion.) Diagnostic Testing: Clinical Impression(s) from Imaging Studies Chest X-Ray 08/27/23 13:46 IMPRESSION: No acute cardiopulmonary disease. Electronically Signed: Gabo Gillis MD at 14:00 EDT , EKG Initial EKG: Attestation: I personally reviewed and interpreted this EKG as follows: (EKG #1. Normal sinus rhythm at 94 beats a minute. Left axis deviation. ST depression to the anterior lateral leads, artifact noted, QTc of 447. EKG reading left anterior fascicular block as well.) Comments: EKG #2. Repeat EKG was done at the request of Dr. Simms, along with right-sided EKG. Artifact noted, left axis deviation. ST depression has somewhat normalized to the anterior lateral leads, however there is new T wave inversion in V5, V6, along with 1 and aVL of the lateral leads. No ST elevat ion. QTc of 468. This was reviewed by Dr. Simms as well. EKG #3. Right-sided EKG at the request of Dr. Simms. Normal sinus rhythm at 70 beats a minute. Left axis deviation. No acute ST elevation, no acute ectopy. No ST elevation, no T wave inversion besides 1 and aVL, V5 and V6 have corrected. QTc of 449. Left anterior fascicular block seen. This was reviewed by Dr. Simms as well. Discharge Plan Dx/Rx/DC Orders Clinical Impression: NSTEMI (non-ST elevated myocardial infarction), Chest pain, Hypertension Disposition Disposition: Acute Care Hospital [facility] Discharge Date/Time: 08/27/23 15:38
--- NOTE | 2023-08-27 15:47 | EKG12_ITS ---
Test Reason : ADMISSION Blood Pressure : / mmHG Vent. Rate : 083 BPM Atrial Rate : 083 BPM P-R Int : 158 ms QRS Dur : 082 ms QT Int : 404 ms P-R-T Axes : 056 -53 126 degrees QTc Int : 474 ms Sinus rhythm with Premature atrial complexes Left anterior fascicular block T wave abnormality, consider lateral ischemia Prolonged QT Confirmed by CHEYENNE ORNELAS, AVA ([id number]), order editor ALONA GUY ([id number]) on 08/29/2023 11:26:20 AM Referred By: JASWINDER Confirmed By:AVA QUINN MD
[2023-08-27 15:55] LABS: Reflex Troponin-HS? (from REC) Y
[2023-08-27 16:43] LABS: Troponin-I HS 9204 pg/mL (3.0-78.0)
[2023-08-27] MEDS: Clopidogrel Bisulfate 75 MG Tablet PO (17:17)
--- NOTE | 2023-08-27 18:21 | PCM.CONS.C ---
Assessment & Plan Assessment/Plan (1) NSTEMI (non-ST elevated myocardial infarction): PLAN: The patient is EKG is consistent with an evolving distal anterior lateral wall ischemic event. The patient is asymptomatic at this point in time. His evolving EKG with deep inverted T waves, nonsustained VT, and resolution of his symptoms are consistent with spontaneous reperfusion. He is on heparin he has been given aspirin and Plavix. The patient also said he received IV metoprolol and his blood pressure is adequately controlled on p.o. metoprolol at this time. The patient has also been on atorvastatin in his home environment this is continued. The patient does have mild dementia he is a DNR CCA by Chinyere his RN daughter. I went over with her options including invasive evaluation versus medical therapy only. We both agree that given his overall situation that invasive evaluation would be indicated but we would limit therapeutic options to nonsurgical. We will plan a 2D echocardiogram and diagnostic left heart catheterization on 08/29/2023. Should the patient develop recurrent symptoms and emergent catheterization would be indicated. The patient's DNR status will be rescinded for the catheterization I discussed this with Chinyere the RN daughter and she agrees. (2) Hypertension: QUALIFIERS: Hypertension type: primary hypertension Qualified Code(s): I10 - Essential (primary) hypertension PLAN: Blood pressure is well-controlled on the current medical therapy. (3) Dementia: QUALIFIERS: Dementia type: unspecified type Dementia severity: mild Dementia behavioral or psychological symptom: without behavioral, psychotic, or mood disturbance or anxiety Qualified Code(s): F03.A0 - Unspecified dementia, mild, without behavioral disturbance, psychotic disturbance, mood disturbance, and anxiety PLAN: Patient was recently diagnosed with dementia. I am not certain of the etiology but he appears to be fairly functional. He comprehended the information that I was providing him he is hard of hearing but he is also confused about the dates. I do not feel the patient would be a good surgical candidate. The patient's RN daughter agrees. PLAN: Plan 1. Continue current medical therapy with IV heparin, aspirin, Plavix, and beta-beckie therapy. 2. If symptoms recur with EKG changes the patient should be taken emergently to the [facility]. 3. Plan for elective catheterization 08/29/2023. 4. 2D echocardiogram for LV function and rule out any occult valvular heart disease 08/29/2023. 5. Continue with atorvastatin. HPI Consult Data Date of Consult: 08/27/23 HPI Narrative HPI Narrative: ALYSSA ALLAN, is a 88 M who presents with approximately 1 hour episode of squeezing chest discomfort. He has no prior history of coronary disease. His EKG showed ST segment elevation in V5 and V6 with peak T waves in V2 through V3. The ST segment elevation evolved to symmetrically inverted deep T waves in V5 and V6 when his symptoms resolved. The patient's enzymes are positive his 1 set was 3600 the next was 9000. The patient was placed on IV heparin he was given aspirin and Plavix and beta-beckie therapy. The patient has had short run of nonsustained ventricular tachycardia of 7-8 beats and short run of frequent PACs. He has remained hemodynamically stable and is resting comfortably in bed. The patient lives with his daughter he tells me that he only gets out occasionally to go to the store she drives him around and he uses a walker. He does not work in the yard or in the house he spends most of his days in a recliner if he is not out going to the store with his daughter. The patient was recently diagnosed with dementia. He is on finasteride and rosuvastatin and a multivitamin in his home environment. I did call his daughter Chinyere [phone] she is an RN who works in the medical intensive care unit. I went over the findings and the plan with her. [facility] Medical History (Updated 08/27/23 @ 18:[address] Jeffery Allred MD) Dementia Frequent falls Hyperlipidemia Non-smoker Prostate disorder Rotator cuff arthropathy Home Medications multivitamin 1 ea PO DAILY HEALTH MAINTENANCE 05/15/18 [History Last Taken 06/22/23] rosuvastatin 10 mg tablet 10 mg PO DAILY CHOLESTEROL 05/15/18 [History Last Taken 08/27/23] quetiapine 25 mg tablet 25 mg PO QHS 30 days #30 tabs 06/25/23 [Rx Last Taken 08/26/23] finasteride 5 mg tablet 5 mg PO DAILY 08/27/23 [History Last Taken 08/27/23] tamsulosin 0.4 mg capsule 0.4 mg PO DAILY 08/27/23 [History Last Taken 08/27/23] Allergy/AdvReac Type Severity Reaction Status Date / Time No Known Allergies Allergy Verified 02/08/24 11:04 Social History Smoking Status: Never smoker ROS Constitutional Constitutional: Reports as per HPI Eyes Eyes: Reports systems reviewed and no addt'l complaints, except as documented ENT HEENT: Reports systems reviewed and no addt'l complaints, except as documented Cardiovascular Cardiovascular: Reports as per HPI Respiratory/Chest Respiratory/Chest: Reports as per HPI Gastrointestinal Gastrointestinal: Reports systems reviewed and no addt'l complaints, except as documented Genitourinary Genitourinary: Reports systems reviewed and no addt'l complaints, except as documented Musculoskeletal Musculoskeletal: Reports systems reviewed and no addt'l complaints, except as documented Integumentary Integumentary: Reports systems reviewed and no addt'l complaints, except as documented Neurologic Neurologic: Reports as per HPI Psychiatric Psychiatric: Reports as per HPI Endocrine Endocrinology: Reports systems reviewed and no addt'l complaints, except as documented Hematologic/Lymphatic Hematologic/Lymphatic: Reports systems reviewed and no addt'l complaints, except as documented Allergic/Immunologic Allergic/Immunologic: Reports systems reviewed and no addt'l complaints, except as documented Physical Exam Const alert Constitutional Narrative: Patient is oriented x [address] he is confused about the date and time. He is very hard of hearing. HEENT normocephalic Eyes EOMs intact bilaterally Neck no JVD Carotids: Negative for bruit Chest inspection of chest normal Resp normal respiratory effort and clear to auscultation bilaterally Cardio regular rate, regular rhythm, S1 normal heart sound, S2 normal heart sound, no murmurs, no rub and no gallops GI soft to palpation Extremity no pedal edema Skin Wound Narrative: Minor ecchymoses noted on the right lower extremity. Neuro Neuro Narrative: Patient is oriented to person and place. He is very pleasant and cooperative. Psych Psych Narrative: See neuro notes Risk Stratification Risk Stratification Applicable: Yes Age >/= 65: Yes >/= 3 CAD Risk Factors (HTN, HLD, DM, family hx of CAD, or current smoker): No Aspirin Use in the Past 7 Days: No Severe Angina (>/= episodes in 24 hours): Yes EKG ST Changes >/= 0.5mm: Yes Positive Cardiac Marker: Yes MARTINEZ Risk Stratification Score: 4 MARTINEZ % Risk: 20% Risk Charges/Coding Visit Charges Inpatient E&M: 67549 Init Hosp L3 Objective Data Vital Signs: Vital Signs Temp Pulse Resp BP Pulse Ox O2 Del Method 98.1 F 87 16 134/66 H 98 Room Air 08/27/23 15:54 08/27/23 15:54 08/27/23 15:54 08/27/23 15:54 08/27/23 15:54 08/27/23 17:20 Oxygen Delivery Method Room Air Weight: 168 lb 13.985 oz Body Mass Index (BMI) 22.2 Intake & Output: Intake and Output for Last 24 Hours 08/25/23 08/26/23 08/27/23 23:59 23:59 23:59 Intake Total 440 / 440 Balance 440 / 440 Lab / Micro Data Attestation: I reviewed the patient's lab results. 08/27/23 13:30 08/27/23 13:30 Labs: Laboratory Results - last 24 hr 08/27/23 13:30: WBC 8.5, RBC 4.21 L, Hgb 13.2, Hct 41.2, MCV 97.9 H, MCH 31.4, MCHC 32.0, RDW Std Deviation 49.8 H, RDW Coeff of Tia 13.9, Plt Count 160, MPV 9.9, Immature Gran % (Auto) 0.400, Neut % (Auto) 75.9 H, Lymph % (Auto) 13.5 L, [place] % (Auto) 9.0, Eos % (Auto) 0.8, Baso % (Auto) 0.4, Absolute Neuts (auto) 6.5, Absolute Lymphs (auto) 1.15, Nucleated RBC % 0, PT 12.8, INR 1.0, APTT 27.8, Sodium 140, Potassium 4.6, Chloride 108 H, Carbon Dioxide 31.0, Anion Gap 1 L, BUN 22 H, Creatinine 0.98, Estim Creat Clear Calc 66.87, Est GFR (MDRD) Af Amer 93, Est GFR (MDRD) Non-Af 77, BUN/Creatinine Ratio 22.4 H, Glucose 152 H, Calcium 8.9, Troponin I High Sens 177 H*, Lipase 39 08/27/23 16:08: Troponin I High Sens 9204 H* Rhythm Strip Rhythm Strip: Sinus Rhythm Rate: 85 Ectopy: PVC(s) (1 short run of nonsustained ventricular tachycardia. 8-10 beats.) and PAC(s) (The rhythm strip was read as atrial for but it was not. It is frequent PACs.) Cardiology Labs/Tests 08/27/23 13:30: WBC 8.5, RBC 4.21 L, Hgb 13.2, Hct 41.2, MCV 97.9 H, MCH 31.4, MCHC 32.0, Plt Count 160, MPV 9.9, Immature Gran % (Auto) 0.400, Neut % (Auto) 75.9 H, Lymph % (Auto) 13.5 L, [place] % (Auto) 9.0, Eos % (Auto) 0.8, Baso % (Auto) 0.4, Absolute Neuts (auto) 6.5, Nucleated RBC % 0, PT 12.8, INR 1.0, APTT 27.8, Sodium 140, Potassium 4.6, Chloride 108 H, Carbon Dioxide 31.0, Anion Gap 1 L, BUN 22 H, Creatinine 0.98, Est GFR (MDRD) Af Amer 93, Est GFR (MDRD) Non-Af 77, BUN/Creatinine Ratio 22.4 H, Glucose 152 H, Calcium 8.9 Rhythm: EKG: ECHO: Stress Test: Cardiac Cath: PCI: CT Surgery: Holter monitor: EPS: PPM: CXR: Chest CT Scan: Radiography Diagnostic Testing: Radiology Impression Chest X-Ray 08/27/23 13:46 IMPRESSION: No acute cardiopulmonary disease. Electronically Signed: Gabo Gillis MD at 14:00 EDT ,
--- NOTE | 2023-08-27 18:36 | ECHOD_ITS ---
Reason For Study: NSTEMI Procedure This was a 2D Doppler, Color Flow transthoracic echocardiogram. Exam performed portable in patient room. Left Ventricle Normal left ventricle. Left ventricular systolic function is lower limits of normal. Stage 1 diastolic dysfunction. No regional wall motion abnormalities noted. Right Ventricle Normal RV size. Normal systolic function. Mitral Valve Bileaflet diffuse mitral valve thickening. Tricuspid Valve Normal tricuspid valve. Pulmonic Valve The pulmonic valve is not well visualized. Great Vessels Normal aortic root. The pulmonary artery is normal size. Normal inferior vena cava. Pericardium/Pleural No pericardial effusion. MMode/2D Measurements & Calculations RVDd: 3.3 cm LAV(MOD-bp): 98.5 ml LVAd ap4: 31.0 cm2 LAV(MOD-bp) Indexed: 49.3 ml/m2 LVLd ap4: 8.9 cm LAV(MOD-sp2): 101.8 ml EDV(MOD-sp4): 84.9 ml LAV(MOD-sp4): 98.1 ml EDV(sp4-el): 91.0 ml LVAs ap4: 21.4 cm2 LVLs ap4: 8.3 cm ESV(MOD-sp4): 45.1 ml ESV(sp4-el): 46.9 ml EF(MOD-sp4): 46.9 % EF(sp4-el): 48.5 % SV(MOD-sp4): 39.8 ml SV(sp4-el): 44.2 ml LA A4 area: 29.5 cm2 LA dimension(2D): 4.4 cm RA A4 area: 19.6 cm2 TAPSE: 1.9 cm Time Measurements MV dec time: 0.20 sec Doppler Measurements & Calculations MV E max everardo: 52.7 cm/sec Lat Peak E' Everardo: 8.5 cm/sec Med Peak E' Everardo: 6.1 cm/sec MV A max everardo: 58.0 cm/sec E/E' lat: 6.2 E/E' med: 8.6 MV E/A: 0.91 MV V2 max: 94.5 cm/sec Ao V2 max: 163.8 cm/sec MV max P.6 mmHg MV dec slope: 274.5 cm/sec2 Ao max P.7 mmHg MV V2 mean: 39.8 cm/sec Ao V2 mean: 117.6 cm/sec MV mean P.89 mmHg Ao mean P.3 mmHg MV V2 VTI: 23.6 cm Ao V2 VTI: 41.0 cm AV (velocity ratio): 0.74 LV V1 max: 123.3 cm/sec TR max everardo: 191.5 cm/sec LV V1 max P.1 mmHg TR max P.7 mmHg LV V1 mean P.6 mmHg LV V1 mean: 88.5 cm/sec LV V1 VTI: 30.2 cm ECHO/Echo Complete Interpretation Summary Normal left ventricle. Left ventricular systolic function is lower limits of normal. Stage 1 diastolic dysfunction. Ordering Physician: Jeffery Allred Referring Physician: EDVIN DANIEL Performed By: Lore Goldsmith RCS
[2023-08-27] MEDS: 0.9% Saline Lock 10 ML Syringe IV (18:57)
[2023-08-27 20:45] LABS: Troponin-I HS 40831 pg/mL (3.0-78.0)
[2023-08-27 21:30] LABS: Partial Thromboplast Time 54.9 Seconds (24.1-36.2)
[2023-08-27] MEDS: Atorvastatin Calcium 80 MG Tablet PO (21:44)
[2023-08-27] MEDS: QUEtiapine 25 MG Tablet PO (21:44)
[2023-08-27] MEDS: Metoprolol Tartrate 50 MG Tablet PO (21:44)
[2023-08-28] VITALS (7 sets, daily range): BP systolic 90–137; BP diastolic 57–65; PULSE 63–83; RESP 16–18; TEMP 36.7–37.2; O2SAT 93–99
[2023-08-28 03:42] LABS: Absolute Lymphocyte Count 1.89 X10^3/uL (0.83-4.51); Absolute Neutrophil Count 4.4 X10^3/uL (2.0-7.7); Basophil# 0.04 X10^3/uL; Basophil% 0.5 % (0-1); Eosinophil# 0.27 X10^3/uL; Eosinophils% 3.6 % (0-5); Hematocrit 40.5 % (40-54); Hemoglobin 12.9 g/dL (13.0-16.5); Lymphocyte # 1.89 X10^3/ul (0.83-4.51); Lymphocyte % 25.1 % (19-41); Mean Corp Hgb Conc 31.9 g/dL (32-36); Mean Corpuscular Hgb 31.2 pg (27.0-32.0); Mean Corpuscular Volume 98.1 fL (80-94); Mean Platelet Vol. 9.8 fl (6.2-12.0); Monocyte# 0.91 X10^3/uL; Monocyte% 12.1 % (0-10); NRBC Flagged by Analyzer 0 % (0-5); Neutrophil # 4.39 X10^3/uL (2.7-7.7); Neutrophil % 58.4 % (47-70); Platelet Count 149 K/mm3 (150-450); RBC Distribution Width CV 13.8 % (11.6-14.6); RBC Distribution Width SD 49.6 fl (35.1-43.9); Red Blood Count 4.13 M/mm3 (4.6-6.2); White Blood Count 7.5 K/mm3 (4.4-11.0)
[2023-08-28 03:57] LABS: International Normalized Ratio 1.1; Partial Thromboplast Time 52.3 Seconds (24.1-36.2); Prothrombin Time (Protime)PT. 13.8 SECONDS (11.7-14.9)
[2023-08-28 04:06] LABS: AST(SGOT) 97 U/L (15-37); Alanine Aminotransfer ALT/SGPT 35 U/L (16-61); Alkaline Phosphatase 78 U/L (45-117); Anion Gap 3 (5-15); BUN 19 mg/dL (7-18); BUN/Creat Ratio 18.8 RATIO (10-20); Bilirubin, Direct 0.33 mg/dL (0.00-0.30); Calcium,Total 8.4 mg/dL (8.5-10.1); Chloride 108 mmol/L (98-107); Cholesterol 119 mg/dL (200); Creatinine, Serum 1.01 mg/dL (0.70-1.30); EST Glomerular Filtration Rate 74 mL/min (>60); Est Glom Filt Rate - Afr Amer 90 mL/min (>60); Estimated Creatinine Clearance 56.88 ml/min; Globulin 3.1 g/dL (2.2-4.2); Glucose 105 mg/dL (74-106); High Density Lipoprotein 49 mg/dL; Magnesium 2.1 mg/dL (1.6-2.6); Phosphorus 2.3 mg/dL (2.5-4.9); Potassium 4.2 mmol/L (3.5-5.1); Protein, Total 6.1 g/dL (6.4-8.2); Sodium Level 140 mmol/L (136-145); Thyroid Stim Hormone (TSH) 3.38 uIU/mL (0.358-3.74); Triglycerides 64 mg/dL; Very Low Density Lipoprotein 13 mg/dL (5-40)
--- NOTE | 2023-08-28 05:55 | EKG12_ITS ---
Test Reason : AM EKG Blood Pressure : / mmHG Vent. Rate : 062 BPM Atrial Rate : 062 BPM P-R Int : 152 ms QRS Dur : 100 ms QT Int : 432 ms P-R-T Axes : 067 -31 107 degrees QTc Int : 438 ms Normal sinus rhythm Left axis deviation Low voltage QRS T wave abnormality, consider lateral ischemia Abnormal ECG When compared with ECG of 27-AUG-2023 16:06, MANUAL COMPARISON REQUIRED, DATA IS UNCONFIRMED Confirmed by CHEYENNE ORNELAS, AVA ([id number]), editor at large ALONA GUY ([id number]) on 08/29/2023 11:26:06 AM Referred By: Confirmed By:AVA QUINN MD
[2023-08-28 06:54] LABS: Troponin-I HS 24698 pg/mL (3.0-78.0)
--- NOTE | 2023-08-28 06:55 | PCM.PN.HOSP ---
Reason for Visit Reason for Visit: Chest pain Subjective Subjective Mr. Lion is an 88-year-old white male who presented to the emergency department at [facility] [place] on 08/27/2023 with a chief complaint of chest pain. The patient reported at about 11 AM on the morning of presentation he had a squeezing sensation across his chest. He reported it did not radiate into his neck, jaw, back, or arms. He has no cardiac history but does have a history of hyperlipidemia. The pain was retrosternal in nature and felt like a crushing sensation in his chest. In the squad he was given 324 mg of aspirin and his initial EKG showed ST depression in V2 through V4 and mild ST elevation in V5 and 6. EKG was repeated and that the changes were resolved. He did have a short nonsustained run of ventricular tachycardia that was about 7-8 beats in the short run that involve frequent PACs but was otherwise hemodynamically stable. He lives with his daughter and only gets out occasionally. He uses his walker to ambulate and is not overall very active. He was recently diagnosed with dementia per his daughter. Vital signs on presentation showed a temperature of 98.5, heart rate 85, respiratory 18, oxygen saturation was 95% on room air and blood pressure was 162/78. His CBC was unremarkable. Coags were normal. And his chemistry panel was overtly unremarkable other than an elevated serum glucose at 152. His initial troponin was 177 however they have trended up with time to peak at 40,831 and are now trending back down. He was seen by cardiology yesterday and plan is for cardiac catheterization today versus tomorrow as well as a 2D echo. He was started on heparin drip and also given aspirin and Plavix along with metoprolol. He was already on rosuvastatin 10 mg which was continued. Patient denies any chest pain. States his breathing is fine. Has no complaints at this time. Discussed with Dr. Allred and we suspect reperfusion based on his mild arrhythmias as well as his change in EKG. Objective Data Objective Data Vital Signs: Vital Signs Temp Pulse Resp BP Pulse Ox O2 Del Method 98.0 F 63 16 117/57 L 98 Room Air 08/28/23 03:51 08/28/23 03:51 08/28/23 03:51 08/28/23 03:51 08/28/23 03:51 08/28/23 03:51 Oxygen Delivery Method Room Air Weight: 76.6 kg Body Mass Index (BMI) 22.2 Intake & Output: Intake and Output for Last 24 Hours 08/26/23 08/27/23 08/28/23 23:59 23:59 23:59 Intake Total 440 / 440 130.33 / 130.33 Balance 440 / 440 130.33 / 130.33 Lab / Micro Data 08/28/23 03:21 08/28/23 03:21 Labs: Laboratory Results - last 24 hr 08/27/23 13:30: WBC 8.5, RBC 4.21 L, Hgb 13.2, Hct 41.2, MCV 97.9 H, MCH 31.4, MCHC 32.0, RDW Std Deviation 49.8 H, RDW Coeff of Tia 13.9, Plt Count 160, MPV 9.9, Immature Gran % (Auto) 0.400, Neut % (Auto) 75.9 H, Lymph % (Auto) 13.5 L, Craven % (Auto) 9.0, Eos % (Auto) 0.8, Baso % (Auto) 0.4, Absolute Neuts (auto) 6.5, Absolute Lymphs (auto) 1.15, Nucleated RBC % 0, PT 12.8, INR 1.0, APTT 27.8, Sodium 140, Potassium 4.6, Chloride 108 H, Carbon Dioxide 31.0, Anion Gap 1 L, BUN 22 H, Creatinine 0.98, Estim Creat Clear Calc 66.87, Est GFR (MDRD) Af Amer 93, Est GFR (MDRD) Non-Af 77, BUN/Creatinine Ratio 22.4 H, Glucose 152 H, Calcium 8.9, Troponin I High Sens 177 H*, Lipase 39 08/27/23 16:08: Troponin I High Sens 9204 H* 08/27/23 19:38: Troponin I High Sens 63192 H* 08/27/23 21:06: APTT 54.9 H 08/28/23 03:21: WBC 7.5, RBC 4.13 L, Hgb 12.9 L, Hct 40.5, MCV 98.1 H, MCH 31.2, MCHC 31.9 L, RDW Std Deviation 49.6 H, RDW Coeff of Tia 13.8, Plt Count 149 L, MPV 9.8, Immature Gran % (Auto) 0.300, Neut % (Auto) 58.4, Lymph % (Auto) 25.1, Craven % (Auto) 12.1 H, Eos % (Auto) 3.6, Baso % (Auto) 0.5, Absolute Neuts (auto) 4.4, Absolute Lymphs (auto) 1.89, Nucleated RBC % 0, PT 13.8, INR 1.1, APTT 52.3 H, Sodium 140, Potassium 4.2, Chloride 108 H, Carbon Dioxide 29.0, Anion Gap 3 L, BUN 19 H, Creatinine 1.01, Estim Creat Clear Calc 56.88, Est GFR (MDRD) Af Amer 90, Est GFR (MDRD) Non-Af 74, BUN/Creatinine Ratio 18.8, Glucose 105, Calcium 8.4 L, Phosphorus 2.3 L, Magnesium 2.1, Total Bilirubin 1.20 H, Direct Bilirubin 0.33 H, AST 97 H, ALT 35, Alkaline Phosphatase 78, Total Protein 6.1 L, Albumin 3.0 L, Globulin 3.1, Albumin/Globulin Ratio 1.0, Triglycerides 64, Cholesterol 119, LDL Cholesterol 57, VLDL Cholesterol 13, HDL Cholesterol 49, TSH 3.38 08/28/23 03:37: Troponin I High Sens 56296 H* Radiography Diagnostic Testing: Radiology Impression Chest X-Ray 08/27/23 13:46 IMPRESSION: No acute cardiopulmonary disease. Electronically Signed: Gabo Gillis MD at 14:00 EDT Reading Location ID and State: [address] [place] [address] , Service support , Rhythm Strip Rhythm Strip: Sinus Rhythm Rate: 85 Ectopy: PVC(s) (1 short run of nonsustained ventricular tachycardia. 8-10 beats.) and PAC(s) (The rhythm strip was read as atrial for but it was not. It is frequent PACs.) Physical Exam Const alert, oriented x3, no apparent distress, average body habitus and well nourished Constitutional Narrative: Very pleasant, elderly, white male, sitting up in a chair at the bedside, watching television, appears nontoxic, very pleasant HEENT head/scalp atraumatic and moist oral mucous membranes HEENT Narrative: Dentition is poor, Mallampati is 2, no thrush, patient is extremely hard of hearing Head and Scalp: normocephalic Resp normal respiratory effort, no retractions, no use of accessory muscles and clear to auscultation bilaterally Auscultation: Negative for rales, rhonchi or wheezes Cardio regular rate, regular rhythm, S1 normal heart sound, S2 normal heart sound, no murmurs, no rub, no gallops and no clicks GI normal to inspection, nondistended, normoactive bowel sounds, soft to palpation and non-tender Extremity no clubbing, cyanosis or edema Extremity Narrative: 2+ pedal pulses, 2+ radial pulses Neuro oriented x3, moves all extremities and no focal motor deficits Speech: speech normal Psych affect normal Psych Narrative: Very pleasant, interacts appropriately Assessment & Plan Assessment/Plan (1) NSTEMI (non-ST elevated myocardial infarction): (2) Chest pain: (3) Fall: PLAN: Plan Acute NSTEMI -EKG is consistent with distal anterior lateral wall ischemic event -Continue aspirin -Continue Plavix -Continue high intensity dose statin with Lipitor 80 mg -Continue heparin drip -Lipid panel and hemoglobin A1c are pending -Continue metoprolol 50 mg p.o. twice daily -Blood pressure currently appears to be well-controlled -As needed nitroglycerin -Echocardiogram pending and should be done tomorrow -Cardiac catheterization is planned for tomorrow -Cardiology following-appreciate input NSVT -Likely related to the above event -Continue to monitor on telemetry -Continue beta-beckie -Cardiology is following Mild chronic thrombocytopenia -Appears his baseline platelet level runs between 115,000- 250,000 -Currently 149,000 -No contraindication aspirin or Plavix at this time -Will continue to monitor with heparin Hyperlipidemia -Patient is on rosuvastatin 10 mg at baseline -Lipid panel shows a total cholesterol 119/LDL 57/HDL 49 -Will continue high intensity dose statin while hospitalized but should be able to resume rosuvastatin at discharge Hyperglycemia -Likely stress response as there is no history of diabetes -Hemoglobin A1c is pending 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 I have also asked nursing to inform his daughter that that is a policy. Charges/Coding Visit Charges Inpatient E&M: 40813 Subs Hosp L2
[2023-08-28 07:09] LABS: Hemoglobin A1c 5.6 % (3.8-5.6)
--- NOTE | 2023-08-28 09:32 | PCM.PN.CARD ---
Subjective Subjective The patient is resting comfortably in seated position in reclining chair. He denies any of the squeezing chest discomfort since resolved in the emergency department yesterday. He denies any shortness of breath PND or orthopnea. The patient has had several short runs of nonsustained ventricular tachycardia and frequent PACs on telemetry. He is primarily in normal sinus rhythm. His enzymes high sensitive troponin went up to 40,000 and is back down to 28,000 on the recheck. I did discuss the situation with the patient's daughter, Chinyere, who is an RN working in medical intensive care unit. She confirmed his recent diagnosis of dementia which appears to be relatively mild he lives with his older daughter. Objective Data Vital Signs: Vital Signs Temp Pulse Resp BP Pulse Ox O2 Del Method 98.0 F 63 16 117/57 L 93 Room Air 08/28/23 03:51 08/28/23 03:51 08/28/23 03:51 08/28/23 03:51 08/28/23 07:30 08/28/23 09:08 Oxygen Delivery Method Room Air Weight: 168 lb 13.985 oz Body Mass Index (BMI) 22.2 Intake & Output: Intake and Output for Last 24 Hours 08/26/23 08/27/23 08/28/23 23:59 23:59 23:59 Intake Total 440 / 440 130.33 / 130.33 Balance 440 / 440 130.33 / 130.33 Lab / Micro Data Attestation: I reviewed the patient's lab results. 08/28/23 03:21 08/28/23 03:21 Labs: Laboratory Results - last 24 hr 08/27/23 13:30: WBC 8.5, RBC 4.21 L, Hgb 13.2, Hct 41.2, MCV 97.9 H, MCH 31.4, MCHC 32.0, RDW Std Deviation 49.8 H, RDW Coeff of Tia 13.9, Plt Count 160, MPV 9.9, Immature Gran % (Auto) 0.400, Neut % (Auto) 75.9 H, Lymph % (Auto) 13.5 L, Faulkner % (Auto) 9.0, Eos % (Auto) 0.8, Baso % (Auto) 0.4, Absolute Neuts (auto) 6.5, Absolute Lymphs (auto) 1.15, Nucleated RBC % 0, PT 12.8, INR 1.0, APTT 27.8, Sodium 140, Potassium 4.6, Chloride 108 H, Carbon Dioxide 31.0, Anion Gap 1 L, BUN 22 H, Creatinine 0.98, Estim Creat Clear Calc 66.87, Est GFR (MDRD) Af Amer 93, Est GFR (MDRD) Non-Af 77, BUN/Creatinine Ratio 22.4 H, Glucose 152 H, Calcium 8.9, Troponin I High Sens 177 H*, Lipase 39 08/27/23 16:08: Troponin I High Sens 9204 H* 08/27/23 19:38: Troponin I High Sens 77961 H* 08/27/23 21:06: APTT 54.9 H 08/28/23 03:21: WBC 7.5, RBC 4.13 L, Hgb 12.9 L, Hct 40.5, MCV 98.1 H, MCH 31.2, MCHC 31.9 L, RDW Std Deviation 49.6 H, RDW Coeff of Tia 13.8, Plt Count 149 L, MPV 9.8, Immature Gran % (Auto) 0.300, Neut % (Auto) 58.4, Lymph % (Auto) 25.1, Faulkner % (Auto) 12.1 H, Eos % (Auto) 3.6, Baso % (Auto) 0.5, Absolute Neuts (auto) 4.4, Absolute Lymphs (auto) 1.89, Nucleated RBC % 0, PT 13.8, INR 1.1, APTT 52.3 H, Sodium 140, Potassium 4.2, Chloride 108 H, Carbon Dioxide 29.0, Anion Gap 3 L, BUN 19 H, Creatinine 1.01, Estim Creat Clear Calc 56.88, Est GFR (MDRD) Af Amer 90, Est GFR (MDRD) Non-Af 74, BUN/Creatinine Ratio 18.8, Glucose 105, Hemoglobin A1c 5.6, Calcium 8.4 L, Phosphorus 2.3 L, Magnesium 2.1, Total Bilirubin 1.20 H, Direct Bilirubin 0.33 H, AST 97 H, ALT 35, Alkaline Phosphatase 78, Total Protein 6.1 L, Albumin 3.0 L, Globulin 3.1, Albumin/Globulin Ratio 1.0, Triglycerides 64, Cholesterol 119, LDL Cholesterol 57, VLDL Cholesterol 13, HDL Cholesterol 49, TSH 3.38 08/28/23 03:37: Troponin I High Sens 35221 H* Rhythm Strip Rhythm Strip: Sinus Rhythm Rate: 70 Ectopy: PVC(s) (2 short runs of nonsustained ventricular tachycardia. 8-10 beats.) and PAC(s) (The rhythm strip was read as atrial fib but it was not. It is frequent PACs.) Cardiology Labs/Tests 08/27/23 13:30: WBC 8.5, RBC 4.21 L, Hgb 13.2, Hct 41.2, MCV 97.9 H, MCH 31.4, MCHC 32.0, Plt Count 160, MPV 9.9, Immature Gran % (Auto) 0.400, Neut % (Auto) 75.9 H, Lymph % (Auto) 13.5 L, Faulkner % (Auto) 9.0, Eos % (Auto) 0.8, Baso % (Auto) 0.4, Absolute Neuts (auto) 6.5, Nucleated RBC % 0, PT 12.8, INR 1.0, APTT 27.8, Sodium 140, Potassium 4.6, Chloride 108 H, Carbon Dioxide 31.0, Anion Gap 1 L, BUN 22 H, Creatinine 0.98, Est GFR (MDRD) Af Amer 93, Est GFR (MDRD) Non-Af 77, BUN/Creatinine Ratio 22.4 H, Glucose 152 H, Calcium 8.9 08/27/23 21:06: APTT 54.9 H 08/28/23 03:21: WBC 7.5, RBC 4.13 L, Hgb 12.9 L, Hct 40.5, MCV 98.1 H, MCH 31.2, MCHC 31.9 L, Plt Count 149 L, MPV 9.8, Immature Gran % (Auto) 0.300, Neut % (Auto) 58.4, Lymph % (Auto) 25.1, Faulkner % (Auto) 12.1 H, Eos % (Auto) 3.6, Baso % (Auto) 0.5, Absolute Neuts (auto) 4.4, Nucleated RBC % 0, PT 13.8, INR 1.1, APTT 52.3 H, Sodium 140, Potassium 4.2, Chloride 108 H, Carbon Dioxide 29.0, Anion Gap 3 L, BUN 19 H, Creatinine 1.01, Est GFR (MDRD) Af Amer 90, Est GFR (MDRD) Non-Af 74, BUN/Creatinine Ratio 18.8, Glucose 105, Hemoglobin A1c 5.6, Calcium 8.4 L, Phosphorus 2.3 L, Magnesium 2.1, Total Bilirubin 1.20 H, Direct Bilirubin 0.33 H, Triglycerides 64, Cholesterol 119, LDL Cholesterol 57, VLDL Cholesterol 13, HDL Cholesterol 49 Rhythm: EKG: ECHO: Stress Test: Cardiac Cath: PCI: CT Surgery: Holter monitor: EPS: PPM: CXR: Chest CT Scan: Radiography Diagnostic Testing: Radiology Impression Chest X-Ray 08/27/23 13:46 IMPRESSION: No acute cardiopulmonary disease. Electronically Signed: Gabo Gillis MD at 14:00 EDT , Physical Exam Const alert Constitutional Narrative: Oriented x [address] HEENT normocephalic Neck no JVD Carotids: Negative for bruit Chest inspection of chest normal Resp normal respiratory effort and clear to auscultation bilaterally Cardio regular rate, regular rhythm, S1 normal heart sound, S2 normal heart sound, no murmurs, no rub and no gallops GI soft to palpation Extremity no pedal edema Neuro Neuro Narrative: Patient is alert cooperative and oriented to person and place. He does have issues with date and time. He did remember me but did not remember my name. Psych Psych Narrative: See neuro comments above Assessment & Plan Assessment/Plan (1) NSTEMI (non-ST elevated myocardial infarction): PLAN: The patient's enzymes have trended down. He does continue to have some short runs of ventricular ectopy. He has had no recurrence of his squeezing chest symptoms which was contemporary with his ST elevation in V5 and V6 on admission. His ST segments resolved and have not recurred. He did have marked T wave inversions in V5 and V6 following resolution of his pain consistent with spontaneous reperfusion. I discussed in detail with the patient's daughter who is in medical intensive RN about resending the DNR status and performing an invasive left heart catheterization tomorrow. She is to return to the hospital today and if she has further questions I will answer them. The patient will be scheduled for left heart catheterization with Dr. Light tomorrow morning. Should he have recurrence of his symptoms he should go emergently to the [facility] as a STEMI protocol. The patient is on aspirin and Plavix. He will have had 3 doses of Plavix prior to the catheterization tomorrow. He remains on IV heparin. This will be held on-call to the [facility]. (2) Hypertension: QUALIFIERS: Hypertension type: primary hypertension Qualified Code(s): I10 - Essential (primary) hypertension PLAN: The patient's blood pressures been well-controlled on his current medical therapy. He should be continued on the metoprolol. (3) Dementia: QUALIFIERS: Dementia type: unspecified type Dementia severity: mild Dementia behavioral or psychological symptom: without behavioral, psychotic, or mood disturbance or anxiety Qualified Code(s): F03.A0 - Unspecified dementia, mild, without behavioral disturbance, psychotic disturbance, mood disturbance, and anxiety PLAN: Patient was recently diagnosed with dementia he is was placed on Seroquel but has not had any issues in the evening hours since admission. He remains oriented to person and place but has some issues with dates and times. (4) Hyperlipidemia: QUALIFIERS: Hyperlipidemia type: pure hypercholesterolemia Qualified Code(s): E78.00 - Pure hypercholesterolemia, unspecified PLAN: The patient has been on rosuvastatin in his home environment. He will continue on that at discharge she is currently on atorvastatin due to formulary. PLAN: Plan 1. Plan for left heart catheterization tomorrow. 2. 2D echocardiogram planned for tomorrow to evaluate LV function. 3. Will resend DNR CCA order on-call to the [facility] [employer] [facility]. 4. Continue aspirin Plavix metoprolol. 5. Will hold heparin on-call to the [facility] [employer]. Cath will be planned for Dr. Light tomorrow morning. Charges/Coding Visit Charges Inpatient E&M: 71492 Subs Hosp L3
[2023-08-28] MEDS: Multivitamins,Therapeutic Tablet 1 TABLET PO (10:22)
[2023-08-28] MEDS: Aspirin 81 MG TAB.CHEW PO (10:22)
[2023-08-28] MEDS: Clopidogrel Bisulfate 75 MG Tablet PO (10:22)
[2023-08-28 11:12] LABS: Partial Thromboplast Time 57.3 Seconds (24.1-36.2)
[2023-08-28] MEDS: Tamsulosin HCl 0.4 MG Capsule PO (13:30)
[2023-08-28] MEDS: Finasteride 5 MG Tablet PO (13:30)
[2023-08-28] MEDS: HEPARIN/D5w 25,000 UNITS 25,000 UNITS/250 ML IV.SOLN. 11 UNITS CONT INF (14:46)
[2023-08-28] MEDS: Na Biphos/Potassium Phosphate PACKET 1 PACKET PO ×2 (14:49→22:11)
[2023-08-28 16:31] LABS: Partial Thromboplast Time 66.1 Seconds (24.1-36.2)
[2023-08-28] MEDS: Metoprolol Tartrate 25 MG Tablet PO (22:11)
[2023-08-28] MEDS: Atorvastatin Calcium 80 MG Tablet PO (22:11)
[2023-08-29] VITALS (17 sets, daily range): BP systolic 103–153; BP diastolic 58–84; PULSE 60–90; RESP 14–18; TEMP 36.2–36.6; O2SAT 95–99
[2023-08-29 04:16] LABS: Hematocrit 40.3 % (40-54); Hemoglobin 13.1 g/dL (13.0-16.5); Mean Corp Hgb Conc 32.5 g/dL (32-36); Mean Corpuscular Hgb 32.1 pg (27.0-32.0); Mean Corpuscular Volume 98.8 fL (80-94); Mean Platelet Vol. 9.5 fl (6.2-12.0); Platelet Count 148 K/mm3 (150-450); RBC Distribution Width CV 14.1 % (11.6-14.6); RBC Distribution Width SD 50.9 fl (35.1-43.9); Red Blood Count 4.08 M/mm3 (4.6-6.2); White Blood Count 5.9 K/mm3 (4.4-11.0)
[2023-08-29 04:27] LABS: Partial Thromboplast Time 69.4 Seconds (24.1-36.2)
[2023-08-29 04:33] LABS: Anion Gap 4 (5-15); BUN 19 mg/dL (7-18); BUN/Creat Ratio 17.6 RATIO (10-20); Calcium,Total 8.7 mg/dL (8.5-10.1); Chloride 107 mmol/L (98-107); Creatinine, Serum 1.08 mg/dL (0.70-1.30); EST Glomerular Filtration Rate 69 mL/min (>60); Est Glom Filt Rate - Afr Amer 83 mL/min (>60); Estimated Creatinine Clearance 53.19 ml/min; Glucose 113 mg/dL (74-106); Magnesium 2.2 mg/dL (1.6-2.6); Phosphorus 3.3 mg/dL (2.5-4.9); Potassium 4.2 mmol/L (3.5-5.1); Sodium Level 142 mmol/L (136-145)
--- NOTE | 2023-08-29 05:55 | EKG12_ITS ---
Test Reason : AM EKG Blood Pressure : / mmHG Vent. Rate : 059 BPM Atrial Rate : 059 BPM P-R Int : 156 ms QRS Dur : 092 ms QT Int : 432 ms P-R-T Axes : 075 -20 101 degrees QTc Int : 427 ms Sinus bradycardia T wave abnormality, consider lateral ischemia Abnormal ECG When compared with ECG of 28-AUG-2023 05:24, MANUAL COMPARISON REQUIRED, DATA IS UNCONFIRMED Confirmed by CHEYENNE ORNELAS, AVA ([id number]), editor city [place] GUY ([id number]) on 08/29/2023 11:25:05 AM Referred By: Confirmed By:AVA QUINN MD
[2023-08-29] MEDS: Clopidogrel Bisulfate 75 MG Tablet PO (06:28)
[2023-08-29] MEDS: Aspirin 81 MG TAB.CHEW PO (06:28)
[2023-08-29] MEDS: Metoprolol Tartrate 25 MG Tablet PO ×2 (06:28→20:59)
--- NOTE | 2023-08-29 09:33 | PCM.PN.HOSP ---
Reason for Visit Reason for Visit: Diagnoses Pure hypercholesterolemia, unspecified (08/27/23) Unspecified dementia, mild, without behavioral disturbance, psychotic disturbance, mood disturbance, and anxiety (08/27/23) Essential (primary) hypertension (08/27/23) Non-ST elevation (NSTEMI) myocardial infarction (08/27/23) Chest pain, unspecified (08/27/23) Unspecified fall, initial encounter (08/27/23) Subjective Subjective No chest pain. Objective Data Objective Data Vital Signs: Vital Signs Temp Pulse Resp BP Pulse Ox O2 Del Method 36.4 C L 68 16 128/63 H 95 Room Air 08/29/23 06:28 08/29/23 06:28 08/29/23 06:28 08/29/23 06:28 08/29/23 07:46 08/29/23 07:46 Oxygen Delivery Method Room Air Weight: 76.6 kg Body Mass Index (BMI) 22.2 Intake & Output: Intake and Output for Last 24 Hours 08/27/23 08/28/23 08/29/23 23:59 23:59 23:59 Intake Total 440 / 440 707.47 / 707.47 178.95 / 178.95 Balance 440 / 440 707.47 / 707.47 178.95 / 178.95 Lab / Micro Data 08/29/23 04:05 08/29/23 04:05 Labs: Laboratory Results - last 24 hr 08/28/23 10:10: APTT 57.3 H 08/28/23 16:10: APTT 66.1 H 08/29/23 04:05: WBC 5.9, RBC 4.08 L, Hgb 13.1, Hct 40.3, MCV 98.8 H, MCH 32.1 H, MCHC 32.5, RDW Std Deviation 50.9 H, RDW Coeff of Tia 14.1, Plt Count 148 L, MPV 9.5, APTT 69.4 H, Sodium 142, Potassium 4.2, Chloride 107, Carbon Dioxide 31.0, Anion Gap 4 L, BUN 19 H, Creatinine 1.08, Estim Creat Clear Calc 53.19, Est GFR (MDRD) Af Amer 83, Est GFR (MDRD) Non-Af 69, BUN/Creatinine Ratio 17.6, Glucose 113 H, Calcium 8.7, Phosphorus 3.3, Magnesium 2.2 Rhythm Strip Rhythm Strip: Sinus Rhythm Rate: 70 Ectopy: PVC(s) (2 short runs of nonsustained ventricular tachycardia. 8-10 beats.) and PAC(s) (The rhythm strip was read as atrial fib but it was not. It is frequent PACs.) Physical Exam Const alert and no apparent distress Resp normal respiratory effort, no retractions, no use of accessory muscles and clear to auscultation bilaterally Cardio regular rate, regular rhythm, S1 normal heart sound and S2 normal heart sound GI normal to inspection, nondistended, normoactive bowel sounds, soft to palpation, non-tender and non-distended Extremity normal to inspection and no clubbing, cyanosis or edema Assessment & Plan Assessment/Plan (1) NSTEMI (non-ST elevated myocardial infarction): (2) Chest pain: (3) Fall: PLAN: Plan Acute NSTEMI Trops 24,698 Continue aspirin, clopidogrel, high intensity dose statin with Lipitor 80 mg, Continue metoprolol 50 mg p.o. twice daily s/p PCI to mid RCA and mid ramus. Echo shows normal LV with systolic function in lower limits of normal. NSVT Likely related to the above event Continue to monitor on telemetry Continue beta-beckie Cardiology is following [place]-PT/OT consultation Chronic conditions: Mild chronic thrombocytopenia-Appears his baseline platelet level runs between 115,000- 250,000-Currently 149,000-No contraindication aspirin or Plavix at this time-Will continue to monitor with heparin Hyperlipidemia-Patient is on rosuvastatin 10 mg at baseline-Lipid panel shows a total cholesterol 119/LDL 57/HDL 49-Will continue high intensity dose statin while hospitalized but should be able to resume rosuvastatin at discharge Hyperglycemia-Likely stress response as there is no history of diabetes-Hemoglobin A1c is pending 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 Charges/Coding Visit Charges Inpatient E&M: 49036 Subs Hosp L2
--- NOTE | 2023-08-29 11:02 | CL.D_ITS ---
Patient Name: ALYSSA ALLAN Study Date: 08/29/2023 Performing: Ayan Light MD Ht: 73 inches 185.42 cm : 1935 Wt: 168.87 lbs 76.6 kg Age: 88 Gender: male BSA: 2 PROCEDURE(S) PERFORMED DC01-(67935)LHC/COR/LV IC12-(13001/C9600)LALI W/WO PTCA, SINGLE CORONARY ARTERY CLINICAL PROFILE AND INDICATIONS Indications: Suspected CAD Heart Failure: None Stress/Imaging Stress/Image Study Performed: No CAD Presentations: Non-STEMI. Symptom onset Date/Time: 08/27/23 Time Not Available CONCLUSIONS Severe two-vessel disease with preserved ejection fraction. RECOMMENDATIONS Referred for immediate PCI DESCRIPTION OF PROCEDURE The patient arrived to the procedure lab. The risks and benefits of the procedure as well as a full description of our services here and current unavailability of surgical backup were fully explained to the patient and/or their significant other prior to the catheterization. The Timeout was completed, verifying the correct patient and procedure. The patient's procedural site was prepped and draped in the usual fashion. Local anesthetic was given subcutaneously to right radial region with Lidocaine 2%. Using a modified Seldinger technique, arterial access was obtained via the right radial artery, a 6Fr sheath was inserted. Right Coronary Artery selective angiography was then performed in multiple views using a 5 Fr. 4.0 Seabrook catheter. Left Coronary Artery selective angiography was performed in multiple views using a 5 Fr. 4.0 Seabrook catheter. Left Ventriculography was performed in CASTRO projection using a 5 Fr. Pigtail catheter. LV to AO pullback pressures were then recorded. CORONARY ANGIOGRAPHY DOMINANCE: Right Dominant LEFT HEART ASSESSMENT Left Ventricular Ejection Fraction: by LV Gram 55 % Normal LV wall motion Normal Left Ventricular systolic function LEFT MAIN: Angiographically normal LEFT ANTERIOR DESCENDING ARTERY: Mild luminal irregularities with no areas of stenosis more than 30 to 40%. CIRCUMFLEX ARTERY: Mild luminal irregularities RAMUS: Mid to high-grade 95% stenosis prior to a bifurcating segment. RIGHT CORONARY ARTERY: Dominant medium to large size vessel with smooth 70% proximal to mid stenosis present. COMPLICATIONS PROCEDURE MEDICATIONS Fentanyl 50 mcg IV Versed 1 mg IV Oxygen: 2 L/min via nasal cannula Heparin given IA 08/29/2023 10:31:06 Heparin 5000 unit(s) IV 08/29/2023 10:55:14 SUMMARY OF HEMODYNAMIC DATA Time AIR REST ECG 09:58:38 AO 112/61 (82) SA 10:37:29 AO 115/56 (78) 10:39:09 LV 115/2, 11 10:48:21 LV 115/4, 11 10:48:31 LV 127/7, 16 10:49:00 LV 120/6, 15 10:49:08 LVp 118/12, 15 10:49:17 AOp 118/50 (79) 10:49:24 Signed By Ayan Light MD On 08/29/2023 11:02:03 Ayan Light MD
--- NOTE | 2023-08-29 11:25 | CASEMGMT ---
GRIFFIN TINAJERO NOTE: GRIFFIN CM to room to complete assessment. Pt is out of room for heart cath at this time. Belinda DELATORREN GRIFFIN CM
--- NOTE | 2023-08-29 11:53 | CL.I_ITS ---
Patient Name: ALYSSA ALLAN Study Date: 08/29/2023 Performing: Corky Boudreaux MD Ht: 73 inches 185.42 cm : 1935 Wt: 168.87 lbs 76.6 kg Age: 88 Gender: male BSA: 2 PROCEDURE(S) PERFORMED IC12-(09144/[id number])LALI W/WO PTCA, SINGLE CORONARY ARTERY IC12-(58307/[id number])LALI W/WO PTCA, SINGLE CORONARY ARTERY CLINICAL PROFILE AND CO-MORBIDITIES Indications: Suspected CAD Heart Failure: None Stress/Imaging Stress/Image Study Performed: No CAD Presentations: Non-STEMI. Symptom onset Date/Time: 08/27/23 Time Not Available CONCLUSIONS Successful LALI Mid Ramus using [place] Sumner 2.75x15 mm Successful LALI Mid RCA using Nito Sumner 3.0x12 mm, post-dilated using 3.5 mm balloon, optimized proximally with 4.0 mm balloon RECOMMENDATIONS ASA Indefinitley Plavix for at least 12 months DESCRIPTION OF PROCEDURE The patient arrived to the procedure lab. The risks and benefits of the procedure as well as a full description of our services here and current unavailability of surgical backup were fully explained to the patient and/or their significant other prior to the catheterization. The Timeout was completed, verifying the correct patient and procedure. The patient's procedural site was prepped and draped in the usual fashion. Local anesthetic was given subcutaneously to right radial region with Lidocaine 2% Using a modified Seldinger technique,arterial access was obtained via the right radial artery, a 6Fr sheath was inserted. Right Coronary Artery selective angiography was then performed in multiple views using a 5 Fr. 4.0 Garner catheter. Left Coronary Artery selective angiography was performed in multiple views using a 5 Fr. 4.0 Garner catheter. Left Ventriculography was performed in CASTRO projection using a 5 Fr. Pigtail catheter. LV to AO pullback pressures were then recorded.The images were reviewed and options discussed. A decision was then made to proceed with an Intervention, IVUS or other adjunct procedure. XB 3.0 Guide catheter was inserted and engaged into the LCA. Runthrough Guide wire was advanced to the Ramus. Angiogram performed pre balloon dilatation. Nito Sumner 2.75 x 15 Drug Eluting stent was inserted. Drug Eluting stent was advanced across the lesion in the ramus branch, mid. NC Emerge 2.75 x 12 Balloon catheter was inserted. Drug Eluting stent was advanced across the lesion in the ramus branch, mid. JR 4 Guide catheter was inserted and engaged into the RCA. Runthrough Guide wire was advanced to the RCA. [place] Sumner 3.0 x 12 Drug Eluting stent was inserted. Drug Eluting stent was advanced across the lesion in the right coronary, mid. NC Emerge 3.50 x 12 Balloon catheter was inserted. Balloon catheter was advanced across lesion in the right coronary, mid. Angiogram performed pre balloon dilatation. Angiogram performed post balloon dilatation. NC Euphora 4.0 x 6 Balloon catheter was inserted. Balloon catheter was advanced across lesion in the right coronary, mid. The arterial sheath was pulled and a TR Band was applied for hemostasis INTERVENTION INFORMATION LESION SITE: Ramus (Mid) Lesion Complexity: High/C, thrombus present: Yes, lesion length: 13 mm, culprit lesion: Yes Pre Stenosis: 95 % Pre intervention MARTINEZ flow: 3 PROCEDURE: Drug Eluting Stent with post dilatation Post Stenosis: 0 % Post intervention MARTINEZ flow: 3 Lesion Devices: Terumo .014 180cm Runthrough Extra Floppy straight Cordis 6 Fr XB3.0 100cm Guide Catheter Medtronic 2.75 x 15 NITO FRONTIER LALI Duarte Sci NC EMERGE MR 2.75x12 BALLOON LESION SITE: RCA (Mid) Lesion Complexity: Non-High/Non-C, lesion length: 10 mm, culprit lesion: No Pre Stenosis: 80 % Pre intervention MARTINEZ flow: 3 PROCEDURE: Drug Eluting Stent with post dilatation Post Stenosis: 0 % Post intervention MARTINEZ flow: 3 Lesion Devices: Terumo .014 180cm Runthrough Extra Floppy straight Cordis 6 Fr JR4 100cm Guide Catheter Medtronic 3.0 x 12 NITO FRONTIER LALI Duarte Sci NC EMERGE MR 3.50x12 BALLOON Medtronic NC EUPHORA RX 4.0x06 BALLOON COMPLICATIONS No Complications PROCEDURE MEDICATIONS Fentanyl 50 mcg IV Versed 1 mg IV Oxygen: 2 L/min via nasal cannula Heparin given IA 08/29/2023 10:31:06 Heparin 5000 unit(s) IV 08/29/2023 10:55:14 Heparin 2000 unit(s) IV 08/29/2023 11:34:11 Nitro 100 mcg IC 08/29/2023 11:10:55 Nitro 200 mcg IC 08/29/2023 11:25:46 SUMMARY OF HEMODYNAMIC DATA Time AIR REST ECG 09:58:38 AO 112/61 (82) SA 10:37:29 AO 115/56 (78) 10:39:09 LV 115/2, 11 10:48:21 LV 115/4, 11 10:48:31 LV 127/7, 16 10:49:00 LV 120/6, 15 10:49:08 LVp 118/12, 15 10:49:17 AOp 118/50 (79) 10:49:24 AIR REST 11:51:37 Signed By Corky Boudreaux MD On 08/29/2023 11:52:52 Corky Boudreaux MD
--- NOTE | 2023-08-29 12:00 | EKG12_ITS ---
Test Reason : AM EKG Blood Pressure : / mmHG Vent. Rate : 074 BPM Atrial Rate : 074 BPM P-R Int : 168 ms QRS Dur : 086 ms QT Int : 396 ms P-R-T Axes : 072 -29 058 degrees QTc Int : 439 ms Sinus rhythm with Premature atrial complexes Low voltage QRS T wave abnormality, consider lateral ischemia Abnormal ECG When compared with ECG of 29-AUG-2023 05:17, Premature atrial complexes are now Present Confirmed by CHEYENNE ORNELAS, AVA ([id number]), sound editor ASHTYN RICHTER ([id number]) on 08/31/2023 6:52:11 AM Referred By: Confirmed By:AVA QUINN MD
[2023-08-29] MEDS: 0.9% Normal Saline (1000mL) 1,000 ML 100 ML IV (12:35)
[2023-08-29] MEDS: Multivitamins,Therapeutic Tablet 1 TABLET PO (12:36)
[2023-08-29] MEDS: Finasteride 5 MG Tablet PO (12:36)
[2023-08-29] MEDS: Tamsulosin HCl 0.4 MG Capsule PO (12:37)
--- NOTE | 2023-08-29 12:47 | PCM.PN.CARD ---
Subjective Subjective Patient seen and evaluated. Appears to be doing well. Underwent cardiac catheterization today. Objective Data Vital Signs: Vital Signs Temp Pulse Resp BP Pulse Ox O2 Del Method 97.1 F L 68 16 153/71 H 95 Room Air 08/29/23 09:30 08/29/23 12:15 08/29/23 12:15 08/29/23 12:15 08/29/23 12:15 08/29/23 12:15 Oxygen Delivery Method Room Air Weight: 168 lb 13.985 oz Body Mass Index (BMI) 22.2 Intake & Output: Intake and Output for Last 24 Hours 08/27/23 08/28/23 08/29/23 23:59 23:59 23:59 Intake Total 440 / 440 707.47 / 707.47 178.95 / 178.95 Balance 440 / 440 707.47 / 707.47 178.95 / 178.95 Lab / Micro Data 08/29/23 04:05 08/29/23 04:05 Labs: Laboratory Results - last 24 hr 08/28/23 16:10: APTT 66.1 H 08/29/23 04:05: WBC 5.9, RBC 4.08 L, Hgb 13.1, Hct 40.3, MCV 98.8 H, MCH 32.1 H, MCHC 32.5, RDW Std Deviation 50.9 H, RDW Coeff of Tia 14.1, Plt Count 148 L, MPV 9.5, APTT 69.4 H, Sodium 142, Potassium 4.2, Chloride 107, Carbon Dioxide 31.0, Anion Gap 4 L, BUN 19 H, Creatinine 1.08, Estim Creat Clear Calc 53.19, Est GFR (MDRD) Af Amer 83, Est GFR (MDRD) Non-Af 69, BUN/Creatinine Ratio 17.6, Glucose 113 H, Calcium 8.7, Phosphorus 3.3, Magnesium 2.2 Rhythm Strip Rhythm Strip: Sinus Rhythm Rate: 70 Ectopy: PVC(s) (2 short runs of nonsustained ventricular tachycardia. 8-10 beats.) and PAC(s) (The rhythm strip was read as atrial fib but it was not. It is frequent PACs.) Cardiology Labs/Tests 08/28/23 16:10: APTT 66.1 H 08/29/23 04:05: WBC 5.9, RBC 4.08 L, Hgb 13.1, Hct 40.3, MCV 98.8 H, MCH 32.1 H, MCHC 32.5, Plt Count 148 L, MPV 9.5, APTT 69.4 H, Sodium 142, Potassium 4.2, Chloride 107, Carbon Dioxide 31.0, Anion Gap 4 L, BUN 19 H, Creatinine 1.08, Est GFR (MDRD) Af Amer 83, Est GFR (MDRD) Non-Af 69, BUN/Creatinine Ratio 17.6, Glucose 113 H, Calcium 8.7, Phosphorus 3.3, Magnesium 2.2 Rhythm: EKG: ECHO: Stress Test: Cardiac Cath: PCI: CT Surgery: Holter monitor: EPS: PPM: CXR: Chest CT Scan: Radiography Diagnostic Testing: Radiology Impression Echocardiogram 08/27/23 18:36 Interpretation Summary Normal left ventricle. Left ventricular systolic function is lower limits of normal. Stage 1 diastolic dysfunction. Ordering Physician: Jeffery Allred Referring Physician: EDVIN DANIEL Performed By: Lore Goldsmith RCS Physical Exam Const alert Constitutional Narrative: Oriented x [address] HEENT normocephalic Neck no JVD Carotids: Negative for bruit Chest inspection of chest normal Resp normal respiratory effort and clear to auscultation bilaterally Cardio regular rate, regular rhythm, S1 normal heart sound, S2 normal heart sound, no murmurs, no rub and no gallops GI soft to palpation Extremity no pedal edema Neuro Neuro Narrative: Patient is alert cooperative and oriented to person and place. He does have issues with date and time. He did remember me but did not remember my name. Psych Psych Narrative: See neuro comments above Assessment & Plan Assessment/Plan (1) NSTEMI (non-ST elevated myocardial infarction): PLAN: The patient underwent cardiac catheterization which demonstrated moderately severe disease noted in the right coronary artery and severe disease noted of the ramus intermedius. The left anterior descending artery and the circumflex artery did not have significant stenosis. He underwent successful PCI and stenting of the ramus intermedius as well as the right coronary artery. Plan is to continue him on guideline directed medical therapy with aspirin, beta-beckie, statin, and clopidogrel. (2) Hypertension: QUALIFIERS: Hypertension type: primary hypertension Qualified Code(s): I10 - Essential (primary) hypertension PLAN: The patient's blood pressures been well-controlled on his current medical therapy. He should be continued on the metoprolol. (3) Dementia: QUALIFIERS: Dementia type: unspecified type Dementia severity: mild Dementia behavioral or psychological symptom: without behavioral, psychotic, or mood disturbance or anxiety Qualified Code(s): F03.A0 - Unspecified dementia, mild, without behavioral disturbance, psychotic disturbance, mood disturbance, and anxiety PLAN: Patient was recently diagnosed with dementia he is was placed on Seroquel but has not had any issues in the evening hours since admission. He remains oriented to person and place but has some issues with dates and times. (4) Hyperlipidemia: QUALIFIERS: Hyperlipidemia type: pure hypercholesterolemia Qualified Code(s): E78.00 - Pure hypercholesterolemia, unspecified PLAN: The patient has been on rosuvastatin in his home environment. He will continue on that at discharge she is currently on atorvastatin due to formulary.
[2023-08-29 13:54] LABS: ACT Activated Clotting Time 287 sec (74-137)
[2023-08-29 13:54] LABS: ACT Activated Clotting Time 271 sec (74-137)
--- NOTE | 2023-08-29 15:10 | CRPHASE1 ---
Patient Communication Patient Information Former Patient:: Phase I PHII Cardiac Rehab Discussed with Patient:: Yes Guide to Cardiac Rehab Given to Patient:: Yes Cardiac Rehab Facility Choice List Given to Patient:: Yes Communication to Cardiac Rehab Sfdc Developer:: Corky Boudreaux Sessions:: 36 sessions - 3 days/wk, 12 weeks Cardiac Rehabilitation Info Program Information Cardiac Rehabilitation Program Information: Cardiac Rehab The cardiac rehab team at [facility] consists of highly skilled exercise physiologists, nurses, respiratory therapists and physicians working together with you. Our purpose is to help you have a full recovery and achieve the goals you set for yourself. Over the years many of our patients have returned to activities they assumed they would never do again! We can help restore your confidence and motivation to make lifestyle changes that can have a significant impact on your health and quality of life! We can help answer questions and concerns you may have about exercise, lifestyle, medications, diet, stress and anxiety which are common following a hospitalization. WE monitor ECG and vital signs during exercise and discuss your progress with you and report to your physician(s). Cardiac Rehab is proven to help reduce readmissions, improve functional capacity and lower recurrence of problems with your heart. Our Cardiac Rehab program is Certified by the [place] [employer] Pulmonary [employer] (AACVPR) and Accredited by the [place] [employer] through our [facility]. You can contact us at . We invite you to call us with your questions or to get started in our program. If you have other questions or concerns be sure to ask your physician/provider during your follow-up visit. WE look forward to seeing you!
--- NOTE | 2023-08-29 15:10 | CRPH1.INSTRU ---
General Education Discussed with Patient CAD and cardiac anatomy and function:: Patient communicates acknowledgment Explanation of diagnoses and procedures:: Patient communicates acknowledgment Sign/Symptoms of SD:: Patient communicates acknowledgment Antiplatelet therapy: Patient communicates acknowledgment Proper use of NTG-SL: Patient communicates acknowledgment Emergency procedures and activation of EMS: Patient communicates acknowledgment Compliance of all prescribed medications: Patient communicates acknowledgment Smoking Risk Factors Patient Nicotine/Smoking Risk Factors Are:: Cigarettes Recommendations Recommendations Include:: Previous smoker; encourage continued cessation Response Code Nicotine/Smoking Response Code:: Patient communicates acknowledgment Dyslipidemia Recommendations Recommendations Include:: Lipid profile not available, Reviewed NCEP/ATP guidelines and Therapeutic Lifestyle Change dietary guidelines Response Code Dyslipidemia Response Code:: Patient communicates acknowledgment Hypertension Recommendations Recommendations Include:: Maintain BP <130/85, DASH dietary guidelines, Decrease/maintain normal body weight and Moderation of ETOH Response Code Hypertension:: Patient communicates acknowledgment Heart Disease Risk Factors Patient Heart Disease Risk Factors Are:: Family history of heart disease < 65 years old and Previous cardiac event Recommendations Recommendations Include:: Educated family members of their risk and Educated family members of importance of prevention of heart disease Response Code Heart Disease Response Code:: Patient communicates acknowledgment Metabolic Syndrome Risk Factors Patient Metabolic Syndrome Risk Factors Are [3 of 5]:: Hypertension Recommendations Recommendations Include:: Reinforce compliance to risk factor modifications and Encouraged follow-up with Primary Care Physician Response Code Metabolic Syndrome Response Code:: Patient communicates acknowledgment Sedentary Recommendations Recommendations Include:: Aerobic exercise 5-7 times/week for 20-30 minutes continuously, Benefits of regular exercise, Discussed home walking program and Monitored Outpatient Cardiac Rehab Response Code Sedentary Response Code:: Patient communicates acknowledgment Stress Risk Factors Patient Stress Risk Factors Are:: Patient denies stress as a risk factor Recommendations Recommendations Include:: Identification of stressors, and assessment of coping skills Response Code Stress Response Code:: Patient communicates acknowledgment
--- NOTE | 2023-08-29 15:24 | CASEMGMT ---
RN CM Face to Face with patient for initial transition planning/care coordination assessment. RN CM introduced self and role at [facility]. Patient lying in bed, alert and oriented, daughter at bedside. Patient willing to participate in assessment and is able to answer all questions appropriately. Care providers, pharmacy, and demographics verified. PCP: Dary Specialists: none Preferred Pharmacy: [facility]: [facility] Benef[place]: yes Living Will/HPOA: yes, Chinyere Lion daughter LNOK: daughters Living Arrangements: Patient lives with daughter Kathi in a single story home with ramp to enter the home. Patient is independent at home. Transportation: daughter DME/HHC: Patient has built in tub bench, raised toilet, grab bars, and walker at home. No previous SNF. Patient has had [facility] and [facility] in the past. Daughter interested in Private Aid information, list provided. Patient wishes to discharge home, denies need for home health at this time. Patient states he has no further needs or concerns at this time. CM to follow for discharge planning needs that may arise. Disposition Plan: Patient to discharge home with family support and follow-up plans in place. Leela GOMEZ, RN, CM
--- NOTE | 2023-08-29 15:33 | CASEMGMT ---
Patient has a Healthcare Power of Media Executive on file at [facility]. Patient's daughter Reba is patient's Healthcare Power of Media Executive. Patient does not have a Healthcare Living Will on file. Hawa LIU
--- NOTE | 2023-08-29 17:44 | CT_ITS ---
STUDY: CT BRAIN WITHOUT CONTRAST REASON FOR EXAM: Male, 88 years old. Slurred speech RADIATION DOSAGE (If Supplied By Facility): CTDIvol = ( 44.99 ) mGy, DLP = ( 829.85 ) mGycm TECHNIQUE: Transaxial CT imaging of the brain was performed without administration of intravenous contrast material. Individualized dose optimization techniques were used for this CT. COMPARISON: June 23, 2023. FINDINGS: Normal soft tissue structures. Normal calvarium. There is left temporomandibular arthrosis. There is mild cerebral atrophy with widening of the extra-axial spaces and ventricular dilatation. There are areas of decreased attenuation within the white matter tracts of the supratentorial brain, consistent with microvascular disease changes. Normal basal ganglia and thalami. Normal brainstem. Normal cerebellum. There is no intracranial hemorrhage. There are no findings of an acute ischemic infarction. There is mild mucosal thickening of the visualized paranasal sinuses. CT/Brain/Head without Contrast IMPRESSION: Chronic involutional changes of the brain. Electronically Signed: Gabo Gillis MD at 19:07 EDT ,
--- NOTE | 2023-08-29 18:19 | PCM.HOSP.N ---
Hospitalist Note Discussed with daughter, Chinyere, who was concerned about facial droop and slurred speech. Noted this AM. I saw him afterwards and this was not mentioned to me until afterwards. Discussed with charge entry specialist who had not noticed any change. Discussed with Chinyere, that since he had PCI today, he would not be a candidate for TNK if he had a CVA. I recommended a head CT and if that was normal, check a brain MRI. She was agreeable to that.
[2023-08-29] MEDS: Atorvastatin Calcium 80 MG Tablet PO (20:59)
[2023-08-30 02:50] VITALS: BP 140/57; PULSE 70; RESP 18; TEMP 36.6; O2SAT 97
--- NOTE | 2023-08-30 07:14 | PN.CARD_ITS ---
Subjective Subjective Patient seen and evaluated. Appears doing well. Slept overnight. Objective Data Vital Signs: Vital Signs Temp Pulse Resp BP Pulse Ox O2 Del Method 97.9 F 70 18 140/57 H 97 Room Air 08/30/23 02:50 08/30/23 02:50 08/30/23 02:50 08/30/23 02:50 08/30/23 02:50 08/30/23 02:50 Oxygen Delivery Method Room Air Weight: 168 lb 13.985 oz Body Mass Index (BMI) 22.2 Intake & Output: Intake and Output for Last 24 Hours 08/28/23 08/29/23 08/30/23 23:59 23:59 23:59 Intake Total 707.47 / 707.47 1778.95 / 1778.95 Output Total 800 / 800 Balance 707.47 / 707.47 978.95 / 978.95 Lab / Micro Data 08/29/23 04:05 08/29/23 04:05 Labs: Laboratory Results - last 24 hr 08/29/23 11:04: Activated Clotting Time 287 H 08/29/23 11:40: Activated Clotting Time 271 H Rhythm Strip Rhythm Strip: Sinus Rhythm Rate: 70 Ectopy: PVC(s) (2 short runs of nonsustained ventricular tachycardia. 8-10 beats.) and PAC(s) (The rhythm strip was read as atrial fib but it was not. It is frequent PACs.) Cardiology Labs/Tests Rhythm: EKG: ECHO: Stress Test: Cardiac Cath: PCI: CT Surgery: Holter monitor: EPS: PPM: CXR: Chest CT Scan: Radiography Diagnostic Testing: Radiology Impression Echocardiogram 08/27/23 18:36 Interpretation Summary Normal left ventricle. Left ventricular systolic function is lower limits of normal. Stage 1 diastolic dysfunction. Ordering Physician: Jeffery Allred Referring Physician: EDVIN DANIEL Performed By: Lore Goldsmith RCS Brain CT 08/29/23 17:44 IMPRESSION: Chronic involutional changes of the brain. Electronically Signed: Gabo Gillis MD at 19:07 EDT , Assessment & Plan Assessment/Plan (1) NSTEMI (non-ST elevated myocardial infarction): PLAN: The patient underwent cardiac catheterization which demonstrated moderately severe disease noted in the right coronary artery and severe disease noted of the ramus intermedius. The left anterior descending artery and the circumflex artery did not have significant stenosis. He underwent successful PCI and stenting of the ramus intermedius as well as the right coronary artery. Plan is to continue him on guideline directed medical therapy with aspirin, beta-beckie, statin, and clopidogrel. (2) Hypertension: QUALIFIERS: Hypertension type: primary hypertension Qualified Code(s): I10 - Essential (primary) hypertension PLAN: The patient's blood pressures been well-controlled on his current medical therapy. He should be continued on the metoprolol. (3) Dementia: QUALIFIERS: Dementia type: unspecified type Dementia severity: mild Dementia behavioral or psychological symptom: without behavioral, psychotic, or mood disturbance or anxiety Qualified Code(s): F03.A0 - Unspecified dementia, mild, without behavioral disturbance, psychotic disturbance, mood disturbance, and anxiety PLAN: Patient was recently diagnosed with dementia he is was placed on Seroquel but has not had any issues in the evening hours since admission. He remains oriented to person and place but has some issues with dates and times. (4) Hyperlipidemia: QUALIFIERS: Hyperlipidemia type: pure hypercholesterolemia Qualified Code(s): E78.00 - Pure hypercholesterolemia, unspecified PLAN: The patient has been on rosuvastatin in his home environment. He will co ntinue on that at discharge she is currently on atorvastatin due to formulary. PLAN: Plan From the cardiac standpoint he can be discharged for outpatient follow-up.
[2023-08-30 07:44] VITALS: O2SAT 96
[2023-08-30 07:52] LABS: Absolute Lymphocyte Count 1.47 X10^3/uL (0.83-4.51); Absolute Neutrophil Count 4.4 X10^3/uL (2.0-7.7); Basophil# 0.02 X10^3/uL; Basophil% 0.3 % (0-1); Eosinophil# 0.37 X10^3/uL; Eosinophils% 5.2 % (0-5); Hematocrit 38.5 % (40-54); Hemoglobin 12.6 g/dL (13.0-16.5); Lymphocyte # 1.47 X10^3/ul (0.83-4.51); Lymphocyte % 20.9 % (19-41); Mean Corp Hgb Conc 32.7 g/dL (32-36); Mean Corpuscular Hgb 32.2 pg (27.0-32.0); Mean Corpuscular Volume 98.5 fL (80-94); Mean Platelet Vol. 9.7 fl (6.2-12.0); Monocyte# 0.76 X10^3/uL; Monocyte% 10.8 % (0-10); NRBC Flagged by Analyzer 0 % (0-5); Neutrophil # 4.41 X10^3/uL (2.7-7.7); Neutrophil % 62.5 % (47-70); Platelet Count 160 K/mm3 (150-450); RBC Distribution Width CV 14.2 % (11.6-14.6); RBC Distribution Width SD 51.1 fl (35.1-43.9); Red Blood Count 3.91 M/mm3 (4.6-6.2); White Blood Count 7.1 K/mm3 (4.4-11.0)
--- NOTE | 2023-08-30 08:02 | PN.HOSP_ITS ---
Reason for Visit Reason for Visit: Diagnoses Pure hypercholesterolemia, unspecified (08/27/23) Unspecified dementia, mild, without behavioral disturbance, psychotic disturbance, mood disturbance, and anxiety (08/27/23) Essential (primary) hypertension (08/27/23) Non-ST elevation (NSTEMI) myocardial infarction (08/27/23) Chest pain, unspecified (08/27/23) Unspecified fall, initial encounter (08/27/23) Subjective Subjective Feels well. He denies any changes to his voice. Spoke with patient's daughter, Kathi, who stated that yesterday and the day before, his speech was noted to be slurred. She states today that is back to his baseline. Though she is still concerned about his left facial droop. Objective Data Objective Data Vital Signs: Vital Signs Temp Pulse Resp BP Pulse Ox O2 Del Method 36.6 C 70 18 140/57 H 97 Room Air 08/30/23 02:50 08/30/23 02:50 08/30/23 02:50 08/30/23 02:50 08/30/23 02:50 08/30/23 02:50 Oxygen Delivery Method Room Air Weight: 76.6 kg Body Mass Index (BMI) 22.2 Intake & Output: Intake and Output for Last 24 Hours 08/28/23 08/29/23 08/30/23 23:59 23:59 23:59 Intake Total 707.47 / 707.47 1778.95 / 1778.95 Output Total 800 / 800 Balance 707.47 / 707.47 978.95 / 978.95 Lab / Micro Data 08/30/23 06:50 08/30/23 06:50 Labs: Laboratory Results - last 24 hr 08/29/23 11:04: Activated Clotting Time 287 H 08/29/23 11:40: Activated Clotting Time 271 H 08/30/23 06:50: WBC 7.1, RBC 3.91 L, Hgb 12.6 L, Hct 38.5 L, MCV 98.5 H, MCH 32.2 H, MCHC 32.7, RDW Std Deviation 51.1 H, RDW Coeff of Tia 14.2, Plt Count 160, MPV 9.7, Immature Gran % (Auto) 0.300, Neut % (Auto) 62.5, Lymph % (Auto) 20.9, [place] % (Auto) 10.8 H, Eos % (Auto) 5.2 H, Baso % (Auto) 0.3, Absolute Neuts (auto) 4.4, Absolute Lymphs (auto) 1.47, Nucleated RBC % 0 Radiography Diagnostic Testing: Radiology Impression Echocardiogram 08/27/23 18:36 Interpretation Summary Normal left ventricle. Left ventricular systolic function is lower limits of normal. Stage 1 diastolic dysfunction. Ordering Physician: Jeffery Allred Referring Physician: EDVIN DANIEL Performed By: Lore Goldsmith RCS Brain CT 08/29/23 17:44 IMPRESSION: Chronic involutional changes of the brain. Electronically Signed: Gabo Gillis MD at 19:07 EDT , Rhythm Strip Rhythm Strip: Sinus Rhythm Rate: 70 Ectopy: PVC(s) (2 short runs of nonsustained ventricular tachycardia. 8-10 beats.) and PAC(s) (The rhythm strip was read as atrial fib but it was not. It is frequent PACs.) Physical Exam Const alert and no apparent distress HEENT HEENT Narrative: Noted left facial droop but able to raise his nasolabial folds bilaterally. Eyes EOMs intact bilaterally Cardio regular rate, regular rhythm, S1 normal heart sound and S2 normal heart sound GI normal to inspection, nondistended, normoactive bowel sounds, soft to palpation, non-tender and non-distended Extremity normal to inspection and no clubbing, cyanosis or edema Neuro CN's II-XII intact bilaterally, moves all extremities and no focal motor deficits Sensorium / Orientation: awake and alert Motor Exam: strength 5/5 throughout Psych affect normal Assessment & Plan Assessment/Plan (1) NSTEMI (non-ST elevated myocardial infarction): (2) Chest pain: (3) Fall: PLAN: Plan Acute NSTEMI * Trops 24,698 * Continue aspirin, clopidogrel, high intensity dose statin with Lipitor 80 mg, Continue metoprolol 50 mg p.o. twice daily * s/p PCI to mid RCA and mid ramus. * Echo shows normal LV with systolic function in lower limits of normal. NSVT * Likely related to the above event * Continue to monitor on telemetry * Continue beta-beckie * Cardiology is following Slurred speech * head CT showed chronic changes * MRI of the brain showed no acute process. * Family has noted slurred speech. Not sure if this is related with the acute issues or being overly tired that may have been contributed to that but no evidence of any stroke. No additional workup necessary at this time. 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 CODE STATUS -DNR CCA with no intubation DW patient's dtrs at bedside.
--- NOTE | 2023-08-30 08:03 | MRI_ITS ---
HISTORY: slurred speech. TECHNIQUE: Multiplanar and multisequence MR images of the brain were obtained without contrast. 286 images. COMPARISON: CT prior day. FINDINGS: BRAIN PARENCHYMA: Mild chronic white matter changes. No abnormal focus of restricted diffusion. No acute intracranial hemorrhage identified. CSF SPACES: Mild-moderate volume loss. No significant midline shift or other mass effect.No extra-axial fluid collection. VASCULAR SYSTEM: Major intracranial flow voids are maintained. PARANASAL SINUSES AND MASTOID AIR CELLS: Left frontal ethmoid polypoid mucosal thickening. ORBITS: Symmetric contents. MRI/Brain without Contrast IMPRESSION: No evidence for acute infarct. Chronic involutional and white matter changes. Electronically Signed: Poornima Coreas MD at 11:56 EDT ,
[2023-08-30 08:21] LABS: AST(SGOT) 69 U/L (15-37); Alanine Aminotransfer ALT/SGPT 31 U/L (16-61); Alkaline Phosphatase 77 U/L (45-117); Anion Gap 1 (5-15); BUN 18 mg/dL (7-18); BUN/Creat Ratio 18.7 RATIO (10-20); Calcium,Total 8.8 mg/dL (8.5-10.1); Chloride 110 mmol/L (98-107); Creatinine, Serum 0.96 mg/dL (0.70-1.30); EST Glomerular Filtration Rate 79 mL/min (>60); Est Glom Filt Rate - Afr Amer 95 mL/min (>60); Estimated Creatinine Clearance 59.84 ml/min; Glucose 108 mg/dL (74-106); Potassium 4.4 mmol/L (3.5-5.1); Sodium Level 140 mmol/L (136-145)
[2023-08-30 10:46] VITALS: BP 127/54; PULSE 82; RESP 18; TEMP 36.6; O2SAT 956
[2023-08-30 10:54] VITALS: BP 127/54; PULSE 82
[2023-08-30] MEDS: Metoprolol Tartrate 25 MG Tablet PO (10:54)
[2023-08-30] MEDS: Multivitamins,Therapeutic Tablet 1 TABLET PO (10:54)
[2023-08-30] MEDS: Tamsulosin HCl 0.4 MG Capsule PO (10:54)
[2023-08-30] MEDS: Aspirin 81 MG TAB.CHEW PO (10:54)
[2023-08-30] MEDS: Finasteride 5 MG Tablet PO (10:55)
[2023-08-30] MEDS: Clopidogrel Bisulfate 75 MG Tablet PO (10:55)
--- NOTE | 2023-08-30 12:00 | EKG12_ITS ---
Test Reason : Blood Pressure : / mmHG Vent. Rate : 072 BPM Atrial Rate : 072 BPM P-R Int : 158 ms QRS Dur : 084 ms QT Int : 404 ms P-R-T Axes : 049 -50 088 degrees QTc Int : 442 ms Sinus rhythm with Premature supraventricular complexes Low voltage QRS Left anterior fascicular block T wave abnormality, consider lateral ischemia Abnormal ECG No previous ECGs available Confirmed by CHEYENNE ORNELAS, AVA ([id number]), optics engineer ASHTYN RICHTER ([id number]) on 08/31/2023 6:53:46 AM Referred By: LYUBOV Confirmed By:AVA QUINN MD
--- NOTE | 2023-08-30 12:19 | DS.PCM_ITS ---
Providers Date of Admission: 08/27/23 Primary Care Physician: Dr. Oneil Foote MD Consultations 08/27/23 15:13 Consult: Cardiology Stat Consulting Provider: Jeffery Allred Reason for Consult: Chest Pain EMERGENT Consult: Yes MD Notified: Yes Date Notified: 08/27/23 Time Notified: 15:11 Method of Notification: ED Physician Initiated Reason For Visit: NSTEMI Diagnosis Discharge Diagnosis (1) NSTEMI (non-ST elevated myocardial infarction): Status: Acute Code(s): I21.4 - Non-ST elevation (NSTEMI) myocardial infarction (2) Chest pain: Status: Acute Code(s): R07.9 - Chest pain, unspecified (3) Fall: Status: Acute Code(s): W19.XXXA - Unspecified fall, initial encounter Plan Acute NSTEMI * Trops 502 * Continue aspirin, clopidogrel, high intensity dose statin with Lipitor 80 mg, Continue metoprolol 50 mg p.o. twice daily * s/p PCI to mid RCA and mid ramus. * Echo shows normal LV with systolic function in lower limits of normal. NSVT * Likely related to the above event * Continue to monitor on telemetry * Continue beta-ag * Cardiology is following Slurred speech * head CT showed chronic changes * MRI of the brain showed no acute process. * Family has noted slurred speech. Not sure if this is related with the acute issues or being overly tired that may have been contributed to that but no evidence of any stroke. No additional workup necessary at this time. 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 CODE STATUS -DNR CCA with no intubation DW patient's dtrs at bedside. Medications at Discharge Home Medications multivitamin 1 ea PO DAILY HEALTH MAINTENANCE 05/15/18 quetiapine 25 mg tablet 25 mg PO QHS 30 days #30 tabs 06/25/23 finasteride 5 mg tablet 5 mg PO DAILY 08/27/23 tamsulosin 0.4 mg capsule 0.4 mg PO DAILY 08/27/23 aspirin 81 mg chewable tablet 81 mg PO BREAKFAST #0 tabs 08/30/23 atorvastatin 80 mg tablet 80 mg PO QHS #30 tabs 08/30/23 clopidogrel 75 mg tablet 75 mg PO DAILY #30 tabs 08/30/23 metoprolol tartrate 25 mg tablet 25 mg PO BID #60 tabs 08/30/23 Hospital Course Operations None Procedures 2-D Echocardiogram and Cardiac catheterization Summary of Care Provided Minutes Spent on Discharge: 40 Hospital Course: Patient presents with a non-STEMI. High-sensitivity troponins peaked at 24,000. Patient was started on heparin and underwent a cardiac catheterization on the . Patient had stents placed to the mid RCA and mid ramus. Patient felt fine afterwards. Patient had echocardiogram that showed normal LV with systolic function in the lower limits of normal. Patient would continue with aspirin, clopidogrel and high intensity statin. It was noted by family patient was having slurred speech as well as left facial droop. Nursing had not noted any of that. Patient underwent a head CT and MRI that were both negative. Etiology of this slurred speech may be due to just the duress of his non-STEMI and possibly being really tired. They were concerned about left facial droop which it is noted that his face is asymmetric with flattening on the left side but he is able to raise his nasolabial folds max aterally. Neurologic evaluation otherwise was unremarkable. There is no concern for stroke given unremarkable exam and a normal MRI. Weight / BMI Weight Weight: 76.6 kg Body Mass Index (BMI) 22.2 ABG / Lab / Microbiology Data 08/30/23 06:50 08/30/23 06:50 Laboratory: Laboratory Results - last 24 hr 08/29/23 11:04: Activated Clotting Time 287 H 08/29/23 11:40: Activated Clotting Time 271 H 08/30/23 06:50: WBC 7.1, RBC 3.91 L, Hgb 12.6 L, Hct 38.5 L, MCV 98.5 H, MCH 32.2 H, MCHC 32.7, RDW Std Deviation 51.1 H, RDW Coeff of Tia 14.2, Plt Count 160, MPV 9.7, Immature Gran % (Auto) 0.300, Neut % (Auto) 62.5, Lymph % (Auto) 20.9, Ray % (Auto) 10.8 H, Eos % (Auto) 5.2 H, Baso % (Auto) 0.3, Absolute Neuts (auto) 4.4, Absolute Lymphs (auto) 1.47, Nucleated RBC % 0, Sodium 140, Potassium 4.4, Chloride 110 H, Carbon Dioxide 29.0, Anion Gap 1 L, BUN 18, Creatinine 0.96, Estim Creat Clear Calc 59.84, Est GFR (MDRD) Af Amer 95, Est GFR (MDRD) Non-Af 79, BUN/Creatinine Ratio 18.7, Glucose 108 H, Calcium 8.8, Total Bilirubin 0.90, AST 69 H, ALT 31, Alkaline Phosphatase 77, Total Protein 6.0 L, Albumin 3.0 L, Globulin 3.0, Albumin/Globulin Ratio 1.0 Radiography Diagnostic Testing: Radiology Impression Brain CT 08/29/23 17:44 IMPRESSION: Chronic involutional changes of the brain. Electronically Signed: Gabo Gillis MD at 19:07 EDT , Brain MRI 08/30/23 08:03 IMPRESSION: No evidence for acute infarct. Chronic involutional and white matter changes. Electronically Signed: Poornima Coreas MD at 11:56 EDT , D/C Instructions Discharge Diet: Low fat / Low cholesterol Meaningful Use Info Meaningful Use Diagnoses (Choose all that apply): AMI AMI/Post PCI/Angioplasty Aspirin given w/in 24hrs of arrival?: Yes ASA at discharge?: Yes Antiplatelet Therapy at Discharge:: Yes Statins at discharge?: Yes Matthieu/ARB at discharge?: No Reason Matthieu/ARB not ordered:: Hypotension Beta Ag at discharge?: Yes Done w/ Acute [place] measure.: Yes Documented LVEF (%): 0 Discharge Plan Admission Admit Date/Time: 08/27/23 15:07 Primary Reason for Your Visit: Non-STEMI Attending Provider: Zain Krishnan Primary Care Provider: Oneil Foote Consulting Providers: Jeffery Allred; Chandu Simms; Mulu Silva Discharge Orders/Prescriptions Prescriptions: New aspirin 81 mg Tablet,Chewable 81 mg PO BREAKFAST Qty: 0 0RF atorvastatin 80 mg Tablet 80 mg PO QHS Qty: 30 0RF clopidogrel 75 mg Tablet 75 mg PO DAILY Qty: 30 0RF metoprolol tartrate 25 mg Tablet 25 mg PO BID Qty: 60 0RF Continued multivitamin 1 EACH tablet 1 ea PO DAILY quetiapine 25 mg Tablet 25 mg PO QHS 30 Days Qty: 30 0RF tamsulosin 0.4 mg capsule 0.4 mg PO DAILY finasteride 5 mg tablet 5 mg PO DAILY Discontinued rosuvastatin 10 MG tablet 10 mg PO DAILY Referrals / Follow Up: [facility] [Provider Group] - Within 1 Month Oneil Foote MD [Primary Care Provider] - Within 2 Weeks Disposition Disposition (needs filled in before D/C Order can be placed): Home, Self Care Charges/Coding Visit Charges Inpatient E&M: 78230 Disch Hosp >30min
--- NOTE | 2023-08-30 13:37 | CASEMGMT ---
Patient has order for discharge. GRIFFIN CM in to discuss needs at discharge. GRIFFIN TINAJERO reviewed progress with therapy with daughter and patient. Patient required assistance with transfers and ambulation. Daughter states she lives with daughter and will be working from home this week and able to provide 24hr care. GRIFFIN TINAJERO inquired if they would like C, daughter declined stating she does therapy with patient at home. GRIFFIN TINAJERO updated daughter that should they reconsider HHC or outpatient therapy, to follow-up with PCP, daughter voiced understanding.
[2023-08-30 14:29] VITALS: BP 91/45; PULSE 70; RESP 18; TEMP 36.3; O2SAT 98
--- NOTE | 2023-08-30 14:31 | PHA.DC_ITS ---
Pharmacy [facility] has performed discharge medication reconciliation and counseling for this patient. 1. ASPIRIN 81MG PO BREAKFAST 2. ATORVASTATIN 80MG PO QHS 3. CLOPIDOGREL 75MG PO DAILY 4. METOPROLOL TARTRATE 25MG PO BID The patient's discharge medication list was reviewed for discrepancies and discrepancies were resolved. The patient was counseled on the following discharge medications and changes in medications for homegoing were reviewed. The Reason for Use, instructions for use, and potential side effects were reviewed for all new medications. The patient's questions regarding all of their medications were answered. The patient was able to verbally demonstrate an understanding of their discharge medications. Medications at Discharge Home Medications multivitamin 1 ea PO DAILY HEALTH MAINTENANCE 05/15/18 quetiapine 25 mg tablet 25 mg PO QHS 30 days #30 tabs 06/25/23 finasteride 5 mg tablet 5 mg PO DAILY 08/27/23 tamsulosin 0.4 mg capsule 0.4 mg PO DAILY 08/27/23 aspirin 81 mg chewable tablet 81 mg PO BREAKFAST #0 tabs 08/30/23 atorvastatin 80 mg tablet 80 mg PO QHS #30 tabs 08/30/23 clopidogrel 75 mg tablet 75 mg PO DAILY #30 tabs 08/30/23 metoprolol tartrate 25 mg tablet 25 mg PO BID #60 tabs 08/30/23
== END 2023-08-30 15:06 | disposition home or self-care (01) | DRG 322 ==
LOC: ED 14:47 → PCU 15:19
PROVIDERS: Internal Medicine; Admitting Provider Internal Medicine; Emergency Provider Emergency Medicine; PCP Family Medicine
DX: I21.4 Non-ST elevation (NSTEMI) myocardial infarction (principal); I47.20 Ventricular tachycardia, unspecified; N13.8 Other obstructive and reflux uropathy; D69.6 Thrombocytopenia, unspecified; F03.A0 Unspecified dementia, mild, without behavioral disturbance, psychotic disturbance, mood disturbance, and anxiety; I10 Essential (primary) hypertension; E78.5 Hyperlipidemia, unspecified; Z81.8 Family history of other mental and behavioral disorders; R73.9 Hyperglycemia, unspecified; Z79.82 Long term (current) use of aspirin; Z79.02 Long term (current) use of antithrombotics/antiplatelets; Z66 Do not resuscitate; N40.1 Benign prostatic hyperplasia with lower urinary tract symptoms; R47.81 Slurred speech; R29.6 Repeated falls
CPT/HCPCS: 36415; 70450; 70551; 71045; 80048; 80053; 80061; 80076; 83036; 83690; 83735; 84100; 84443; 84484; 85025; 85027; 85347; 85610; 85730; 92928; 93005; 93306; 93458; 97110; 97161; 97166; 97530; 97535; 99152; 99153; 99285; C1725; J7030; J7040; Q9957; Q9967; A4216; C1769; C1874; C1887; C1894; C9600

== ENCOUNTER 2023-10-13 15:55 | Emergency (ER) | payer MEDICARE, OTHER, SELFPAY ==
[2023-10-13 15:56] VITALS: BP 116/43; PULSE 95; RESP 18; TEMP 36; O2SAT 93
--- NOTE | 2023-10-13 16:07 | EX.ED.DYSGE1 ---
HPI History of Present Illness Chief Complaint: Cellulitis Informant: patient Narrative Narrative: Patient presents secondary to olecranon bursitis of the right elbow. Family states it has been red and swollen for the past 2 weeks. He was seen recently at urgent care and they prescribed Bactrim. They did not drain the lesion. Although he does not remember injuring his elbow, family states that he does fall frequently. He is currently on Plavix. He denies any pain and is able to move the elbow freely. [facility] Medical History Hypertension Non-smoker Dementia Frequent falls Bilateral renal cysts Hernia, hiatal Left rib fracture Prostate disorder Hyperlipidemia Rotator cuff arthropathy Home Medications ?Medication ?Instructions ?Recorded ?Last Taken ?Type multivitamin 1 ea PO DAILY HEALTH MAINTENANCE 05/15/18 06/22/23 History quetiapine 25 mg tablet 25 mg PO QHS 30 days #30 tabs 06/25/23 08/26/23 Rx finasteride 5 mg tablet 5 mg PO DAILY 08/27/23 08/27/23 History tamsulosin 0.4 mg capsule 0.4 mg PO DAILY 08/27/23 08/27/23 History aspirin 81 mg chewable tablet 81 mg PO BREAKFAST #0 tabs 08/30/23 Unknown Rx atorvastatin 80 mg tablet 80 mg PO QHS #30 tabs 08/30/23 Unknown Rx clopidogrel 75 mg tablet 75 mg PO DAILY #30 tabs 08/30/23 Unknown Rx metoprolol tartrate 25 mg tablet 25 mg PO BID #60 tabs 08/30/23 Unknown Rx alfuzosin 10 mg tablet,extended 10 mg PO DAILY 10/13/23 Unknown History release 24 hr cephalexin 500 mg capsule 500 mg PO Q6 #40 CAPSULES 10/13/23 Unknown Rx rosuvastatin 10 mg tablet 10 mg PO QHS 10/13/23 Unknown History sulfamethoxazole 800 1 tab PO BID 10/13/23 Unknown History mg-trimethoprim 160 mg tablet Allergy/AdvReac Type Severity Reaction Status Date / Time No Known Allergies Allergy Verified 10/13/23 15:56 Surgical History Hx of cardiac catheterization (~08/29/23) Stented coronary artery (~08/29/23) Social History Smoking Status: Never smoker ROS ROS ED Constitutional Constitutional ED: Denies chills or fever(s) ENT ENT ED: Denies rhinorrhea or sore throat Cardiovascular Cardiovascular: Denies chest pain or palpitations Respiratory/Chest Respiratory/Chest: Denies cough or dyspnea Gastrointestinal Gastrointestinal: Denies abdominal pain Musculoskeletal Musculoskeletal: Denies back pain or extremity pain Integumentary Reports other Details: Olecranon bursitis right elbow ; Denies Abrasions or rash Neurologic Neurologic: Denies headache(s) or weakness Psychiatric Psychiatric: Denies anxiety or depression Allergic/Immunologic Allergic/Immunologic ED: Denies lip swelling or urticaria EXAM Physical Exam Const Vital Signs: 10/13/23 15:56 Temperature 96.8 F L Temperature Source Temporal Pulse Rate 95 Respiratory Rate 18 Blood Pressure 116/43 L Blood Pressure Mean 67 Pulse Ox 93 Oxygen Delivery Method Room Air Positive well nourished and well developed General Appearance ED: well developed HEENT Reports moist mucous membranes Chest Wall inspection of chest normal and palpation of chest normal Resp normal respiratory effort and clear to auscultation bilaterally Cardio regular rate and regular rhythm GI non-tender Palpation: soft Extremity Extremity Narrative: Olecranon bursitis of the right elbow with erythema and swelling. No significant excessive warmth. Full range of motion of the elbow without difficulty. There is a small scabbed lesion noted over the extensor surface of the elbow but no spontaneous drainage at this time. MDM MDM MDM Narrative Medical decision making narrative: Family does have pictures of the elbow from a couple days ago as well as today. The area is brighter red and more swollen. I think this is likely secondary to the pressure from the swelling as opposed to true infection. I did discuss with him draining the bursitis and placing a pressure dressing over the area to keep it from reaccumulating. Right elbow skin is cleansed. 18-gauge needle was used to drain 5 cc of slightly bloody serosanguineous fluid. Fluid does not appear infected at all I do not feel it needs to be sent for culture. I will go ahead and cover him with Keflex in addition to his current Bactrim. Patient and family comfortable with the plan. Return instructions given. Discharge Plan Triage Chief Complaint: Cellulitis ED Provider: Karol Orellana Dx/Rx/DC Orders Clinical Impression: Bursitis, olecranon Instructions: ED Bursitis Elbow Olecranon Prescriptions: New cephalexin 500 mg capsule 500 mg PO Q6 Qty: 40 0RF No Action multivitamin 1 EACH tablet 1 ea PO DAILY quetiapine 25 mg Tablet 25 mg PO QHS 30 Days Qty: 30 0RF tamsulosin 0.4 mg capsule 0.4 mg PO DAILY finasteride 5 mg tablet 5 mg PO DAILY aspirin 81 mg Tablet,Chewable 81 mg PO BREAKFAST Qty: 0 0RF atorvastatin 80 mg Tablet 80 mg PO QHS Qty: 30 0RF clopidogrel 75 mg Tablet 75 mg PO DAILY Qty: 30 0RF metoprolol tartrate 25 mg Tablet 25 mg PO BID Qty: 60 0RF alfuzosin 10 mg tablet extended release 24 hr 10 mg PO DAILY sulfamethoxazole-trimethoprim 800-160 mg tablet 1 tab PO BID rosuvastatin 10 mg tablet 10 mg PO QHS Primary Care Provider: Oneil Foote Referrals: Oneil Foote MD [Primary Care Provider] - 1 Week Print Language: Australian Disposition Disposition: Home, Self Care
[2023-10-13] MEDS: Cephalexin 250 MG Capsule 500 MG PO (16:25)
[2023-10-13 16:28] VITALS: BP 110/63; PULSE 85; RESP 18; TEMP 36.6; O2SAT 95
== END 2023-10-13 16:42 | disposition home or self-care (01) ==
PROVIDERS: Emergency Provider Emergency Medicine; PCP Physician Assistant; Visit Provider Emergency Medicine
DX: M70.21 Olecranon bursitis, right elbow (principal); I10 Essential (primary) hypertension; E78.5 Hyperlipidemia, unspecified; Z79.82 Long term (current) use of aspirin; Z79.899 Other long term (current) drug therapy; Z79.02 Long term (current) use of antithrombotics/antiplatelets; Z95.5 Presence of coronary angioplasty implant and graft
CPT/HCPCS: 99282

== ENCOUNTER 2024-03-23 11:55 | Emergency (ER) | payer MEDICARE, OTHER, SELFPAY ==
[2024-03-23 11:56] VITALS: BP 139/75; PULSE 78; RESP 23; TEMP 36.9; O2SAT 99; BMI 22.2
[2024-03-23] MEDS: 0.9% Normal Saline (500mL Bag) 500 ML 999 ML IV (12:38)
[2024-03-23] MEDS: Diphth,Pertuss(Acell),Tet Vac 0.5 ML Vial IM (12:39)
[2024-03-23 12:52] LABS: Absolute Lymphocyte Count 1.52 X10^3/uL (0.83-4.51); Absolute Neutrophil Count 5.8 X10^3/uL (2.0-7.7); Basophil# 0.05 X10^3/uL; Basophil% 0.6 % (0-1); Eosinophil# 0.12 X10^3/uL; Eosinophils% 1.4 % (0-5); Hematocrit 44.8 % (40-54); Hemoglobin 14.6 g/dL (13.0-16.5); Lymphocyte # 1.52 X10^3/ul (0.83-4.51); Lymphocyte % 18.1 % (19-41); Mean Corp Hgb Conc 32.6 g/dL (32-36); Mean Corpuscular Hgb 32.2 pg (27.0-32.0); Mean Corpuscular Volume 98.9 fL (80-94); Mean Platelet Vol. 9.8 fl (6.2-12.0); Monocyte# 0.94 X10^3/uL; Monocyte% 11.2 % (0-10); NRBC Flagged by Analyzer 0 % (0-5); Neutrophil # 5.75 X10^3/uL (2.7-7.7); Neutrophil % 68.3 % (47-70); Platelet Count 154 K/mm3 (150-450); RBC Distribution Width CV 13.7 % (11.6-14.6); RBC Distribution Width SD 50.1 fl (35.1-43.9); Red Blood Count 4.53 M/mm3 (4.6-6.2); White Blood Count 8.4 K/mm3 (4.4-11.0)
[2024-03-23 13:16] LABS: ALB/GLOB Ratio 1.1 RATIO (0.9-2.4); AST(SGOT) 28 U/L (15-37); Alanine Aminotransfer ALT/SGPT 29 U/L (16-61); Albumin, Serum 3.4 g/dL (3.2-5.0); Alkaline Phosphatase 111 U/L (45-117); Anion Gap 1 (5-15); BUN 20 mg/dL (7-18); Calcium,Total 8.9 mg/dL (8.5-10.1); Chloride 109 mmol/L (98-107); Creatinine, Serum 0.95 mg/dL (0.70-1.30); EST Glomerular Filtration Rate 79 mL/min (>60); Est Glom Filt Rate - Afr Amer 96 mL/min (>60); Estimated Creatinine Clearance 59.28 ml/min; Glucose 110 mg/dL (74-106); Lipase 41 U/L (13-75); Potassium 4.6 mmol/L (3.5-5.1); Protein, Total 6.4 g/dL (6.4-8.2); Sodium Level 140 mmol/L (136-145); Troponin-I HS 23 pg/mL (3.0-78.0)
[2024-03-23 13:25] LABS: Lactic Acid 1.4 mmol/L (0.4-1.9)
[2024-03-23 14:25] LABS: Bacteria 0 SEEN /hpf (None Seen); Mucous, Urine 0 SEEN /hpf (<or=2+)
[2024-03-23 14:38] LABS: Color, Urine Yellow (Yellow); Glucose, Dipstick Normal (Normal); Ketone-Dipstick Negative (Negative); Leukocyte Esterase-Dipstick Negative /ul (Negative); Nitrite-Dipstick Negative (Negative); Occult Blood-Urine Negative /ul (Negative); Protein-Dipstick Negative (Negative); Specific Gravity, Urine 1.015 (1.002-1.030); Urine Bilirubin Dipstick Negative (Negative); Urine Clarity Clear (Clear); Urine Urobilinogen Normal (Normal)
[2024-03-23 15:00] LABS: Red Blood Cells-Urine 0-5 SEEN /hpf (0-5); Squamous Epithelial Cells - UA 0-5 SEEN /hpf (0-5); White Blood Cells 0-5 SEEN /hpf (0-5)
[2024-03-23 15:56] VITALS: BP 162/95; PULSE 75; RESP 16; TEMP 36.4; O2SAT 96
[2024-03-23] MEDS: Loperamide 2 MG Capsule PO (16:08)
== END 2024-03-23 16:11 | disposition home or self-care (01) ==
PROVIDERS: Emergency Provider Surgery; PCP Physician Assistant; Visit Provider Surgery
DX: R19.7 Diarrhea, unspecified (principal); F03.90 Unspecified dementia, unspecified severity, without behavioral disturbance, psychotic disturbance, mood disturbance, and anxiety; K92.2 Gastrointestinal hemorrhage, unspecified; E78.5 Hyperlipidemia, unspecified; I25.10 Atherosclerotic heart disease of native coronary artery without angina pectoris; I10 Essential (primary) hypertension; Z79.02 Long term (current) use of antithrombotics/antiplatelets; Z79.82 Long term (current) use of aspirin; Z79.899 Other long term (current) drug therapy; Z95.5 Presence of coronary angioplasty implant and graft; W19.XXXA Unspecified fall, initial encounter; S40.211A Abrasion of right shoulder, initial encounter; S00.81XA Abrasion of other part of head, initial encounter
CPT/HCPCS: 70450; 71045; 72125; 74177; 80053; 81001; 82274; 83605; 83690; 84484; 85025; 87506; 90715; 93005; 96360; 99285; J7040; Q9967; A4216

== ENCOUNTER 2024-08-03 13:00 | Emergency (ER) | payer MEDICARE, OTHER, SELFPAY ==
[2024-08-03 13:03] VITALS: BP 154/75; PULSE 58; RESP 18; TEMP 36.6; O2SAT 97
[2024-08-03 14:14] VITALS: BMI 22.4
[2024-08-03 14:43] LABS: Bacteria 0 SEEN /hpf (None Seen); Mucous, Urine 0 SEEN /hpf (<or=2+)
--- NOTE | 2024-08-03 14:48 | CT_ITS ---
PROCEDURE: ABDOMEN/PELVIS WITHOUT CONT 08/03/2024 REASON FOR EXAM: HEMATURIA TECHNIQUE: Abdomen CT without and with intravenous contrast. Coronal and Sagittal reconstruction series were provided. PATIENT PREPARATION: Per protocol ORAL CONTRAST TYPE: None. One or more dose reduction techniques were used (e.g., Automated exposure control, adjustment of the mA and/or kV according to patient size, use of iterative reconstruction technique. RADIATION DOSE SUMMARY: CTDlvol: 6.5 mGy DLP: 400.16 mGycm COMPARISON: Comparison is made with prior study March 23, 2024. FINDINGS: Lung bases: Minimal linear scarring at the lung bases. Liver: Stable hepatic cysts. Hepatomegaly. Gallbladder: Unremarkable. Hiatal hernia. Spleen: Normal size. Pancreas: Stable 1.4 cm cyst in the anterior body of the pancreas. Adrenals: Unremarkable Kidneys: Stable bilateral renal cysts. Stable nonobstructive bilateral intrarenal calculi. Bladder: There is a 7 mm calculus in the base of the bladder on the left side suggestive of recently passed left ureteral calculus. Diffuse bladder wall thickening. The prostate is enlarged with indentation of the bladder base. Bowel: Sigmoid diverticulosis with a mild degree of sigmoid diverticulitis. Appendix: Unremarkable Lymph nodes: No suspicious lymph node enlargement. Vasculature: Mild diffuse atherosclerotic calcifications are noted. Peritoneum / Retroperitoneum: Unremarkable Bones: Degenerative changes of the spine. CT/Abdomen/Pelvis without Cont IMPRESSION: Findings suggestive of recently passed calculus from the left ureter. The calc ulus is at the left bladder base. Diffuse bladder wall thickening and prosthetic enlargement with indentation of the bladder base. 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 Reading Location: [place] [id number]
[2024-08-03 14:50] LABS: Color, Urine Yellow (Yellow); Glucose, Dipstick Normal (Normal); Ketone-Dipstick Negative (Negative); Leukocyte Esterase-Dipstick Negative /ul (Negative); Nitrite-Dipstick Negative (Negative); Occult Blood-Urine Negative /ul (Negative); Protein-Dipstick 15 mg/dl (Negative); Urine Bilirubin Dipstick Negative (Negative); Urine Clarity Clear (Clear); Urine Urobilinogen Normal (Normal); Urine pH 6.5 (5.0 - 8.0)
[2024-08-03 15:02] VITALS: BP 162/84
[2024-08-03 15:18] LABS: Squamous Epithelial Cells - UA 0-5 SEEN /hpf (0-5); White Blood Cells 0-5 SEEN /hpf (0-5)
[2024-08-03 15:19] LABS: Hyaline Cast 0-5 SEEN /lpf (0-5); Red Blood Cells-Urine 0-5 SEEN /hpf (0-5)
--- NOTE | 2024-08-03 15:25 | EX.ED.GUMALE ---
HPI History of Present Illness Chief Complaint: Complaint Informant: patient and family (daughter) Narrative Narrative: 89-year-old male with a history of prostate issues and urinary retention in the past presenting with an episode of hematuria. daughter states she is concerned about it because she takes clopidogrel. Patient just went to the bathroom to urinate again before I saw him, he states he did not have any blood this time. He denies having any pain. He denies any nausea, vomiting, fevers or chills or other symptoms. He states he feels fine right now. He states he frequently gets urinary urgency and little warning for he has to go, as he did just before I came in to see him. That is not different. [facility] Medical History Dementia Hyperlipidemia Hypertension Non-smoker Frequent falls Bilateral renal cysts Hernia, hiatal Left rib fracture Prostate disorder Rotator cuff arthropathy Home Medications ?Medication ?Instructions ?Recorded ?Last Taken ?Type multivitamin 1 ea PO DAILY HEALTH MAINTENANCE 05/15/18 06/22/23 History finasteride 5 mg tablet 5 mg PO DAILY 08/27/23 08/27/23 History tamsulosin 0.4 mg capsule 0.4 mg PO DAILY 08/27/23 08/27/23 History aspirin 81 mg chewable tablet 81 mg PO BREAKFAST #0 tabs 08/30/23 Unknown Rx atorvastatin 80 mg tablet 80 mg PO QHS #30 tabs 08/30/23 Unknown Rx clopidogrel 75 mg tablet 75 mg PO DAILY #30 tabs 08/30/23 Unknown Rx Allergy/AdvReac Type Severity Reaction Status Date / Time No Known Allergies Allergy Verified 08/03/24 13:03 Family History no significant family his Surgical History Hx of cardiac catheterization (~08/29/23) Stented coronary artery (~08/29/23) Social History Smoking Status: Never smoker alcohol intake: current substance use type: does not use caffeine: Yes ROS ROS ED Constitutional Constitutional ED: Denies chills or fever(s) Eyes Eyes: Denies change in vision or diplopia ENT ENT ED: Denies rhinorrhea or sore throat Cardiovascular Cardiovascular: Denies chest pain or palpitations Respiratory/Chest Respiratory/Chest: Denies cough or dyspnea Gastrointestinal Gastrointestinal: Denies abdominal pain, diarrhea, nausea or vomiting Genitourinary Genitourinary ED: Reports as per HPI, hematuria and urinary urgency; Denies dysuria Musculoskeletal Musculoskeletal: Denies back pain or neck pain Integumentary Denies abscess or rash Neurologic Neurologic: Denies headache(s), paresthesias or weakness Psychiatric Psychiatric: Denies anxiety or suicidal thoughts EXAM Physical Exam Const Vital Signs: 08/03/24 13:03 08/03/24 15:02 Temperature 97.8 F Temperature Source Temporal Pulse Rate 58 L Respiratory Rate 18 Blood Pressure 154/75 H 162/84 H Blood Pressure Mean 101 110 Pulse Ox 97 Oxygen Delivery Method Room Air Positive well nourished and well developed General Appearance ED: well developed and NAD HEENT Reports moist mucous membranes normocephalic and atraumatic Eyes PERRL and EOMs intact bilaterally Neck full ROM and supple Resp normal respiratory effort and clear to auscultation bilaterally Cardio regular rate, regular rhythm and no murmurs GI non-tender and non-distended Auscultation: normoactive bowel sounds Palpation: soft Back/Spine no CVA tenderness General Back: other FROM Extremity normal to inspection General Extremety ED: Negative for edema, pulses abnormal or tenderness General Extremity: Negative for edema or pulses abnormal Neuro oriented x3, CN's II-XII intact bilaterally and no sensory deficits noted Sensorium / Orientation: awake and alert Motor Exam: strength 5/5 throughout Skin no rashes or lesions noted and no wounds MDM MDM MDM Narrative Medical decision making narrative: Initially had nurses do a bedside bladder scan since the patient just urinated. It was estimating 243 mL of urine in the patient felt okay. He has no new symptoms of urinary retention, and this is probably his norm, so since he is not having hematuria now we opted not to place a Short and do a straight catheter instead first to get a specimen quickly and second, to see if he still has gross hematuria. This was done and he did not have gross hematuria in the urine looked good. It is negative on the urinalysis for infection on my interpretation. I also sent him for a plain CT scan, the daughter states he has a creatinine that is not normal, and so instead of a CT with and without we opted just to do a biplane scan. I reviewed the images and the report which I agree with, it appears that he has a stone in the bladder with some mild hydro on the left, suggesting that a stone just passed from the left ureter into the bladder. I discussed this with the patient and family, he is stable for discharge home with some urine strainers, he never had any pain to suggest ureteral or renal colic. Discussed reasons to return but for now if he has recurrent bleeding I would follow-up with urology and I would continue his clopidogrel. Lab Data Attestation: I reviewed the patient's lab results. Labs: Laboratory Results - last 24 hr 08/03/24 14:35 Urine Color Yellow Urine Clarity Clear Urine pH 6.5 Ur Specific [place] 1.010 Urine Protein 15 H Urine Glucose (UA) Normal Urine Ketones Negative Urine Occult Blood Negative Urine Nitrite Negative Urine Bilirubin Negative Urine Urobilinogen Normal Ur Leukocyte Esterase Negative Urine RBC 0-5 SEEN Urine WBC 0-5 SEEN Ur Squamous Epith Cells 0-5 SEEN Urine Bacteria 0 SEEN Hyaline Casts 0-5 SEEN Urine Mucus 0 SEEN Radiography Diagnostic Testing: Clinical Impression(s) from Imaging Studies Abdomen/Pelvis CT 08/03/24 14:48 IMPRESSION: Findings suggestive of recently passed calculus from the left ureter. The calculus is at the left bladder base. Diffuse bladder wall thickening and prosthetic enlargement with indentation of the bladder base. 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 Reading Location: [place] [address] Discharge Plan Triage Chief Complaint: Complaint ED Provider: Gabo Benavides Dx/Rx/DC Orders Clinical Impression: Hematuria, Urolithiasis Instructions: ED Hematuria, ED Kidney Stone, Passed, ED Urine Strainer Prescriptions: Continued multivitamin 1 EACH tablet 1 ea PO DAILY tamsulosin 0.4 mg capsule 0.4 mg PO DAILY finasteride 5 mg tablet 5 mg PO DAILY aspirin 81 mg Tablet,Chewable 81 mg PO BREAKFAST Qty: 0 0RF atorvastatin 80 mg Tablet 80 mg PO QHS Qty: 30 0RF clopidogrel 75 mg Tablet 75 mg PO DAILY Qty: 30 0RF Primary Care Provider: Mayra Self NP Referrals: Mayra Self NP, [employer] [Primary Care Provider] - (Or your urologist for any recurrent issues) Print Language: Citizen Of [place] Disposition Disposition: Home, Self Care
[2024-08-03 15:42] VITALS: BP 170/72; PULSE 58; RESP 18; TEMP 36.6; O2SAT 93
== END 2024-08-03 15:47 | disposition home or self-care (01) ==
PROVIDERS: Emergency Provider Emergency Medicine; PCP Registered Nurse; Visit Provider Emergency Medicine
DX: N20.9 Urinary calculus, unspecified (principal); E78.5 Hyperlipidemia, unspecified; Z79.02 Long term (current) use of antithrombotics/antiplatelets; I10 Essential (primary) hypertension; Z79.899 Other long term (current) drug therapy; Z79.82 Long term (current) use of aspirin; Z95.5 Presence of coronary angioplasty implant and graft; R31.9 Hematuria, unspecified
CPT/HCPCS: 74176; 81001; 99285; P9612

== ENCOUNTER 2024-08-16 19:12 | Emergency (ER) | payer MEDICARE, OTHER, SELFPAY ==
[2024-08-16] VITALS (9 sets, daily range): BP systolic 78–145; BP diastolic 41–69; PULSE 56–65; RESP 16–22; TEMP 36.1; O2SAT 95–98; BMI 26.6
[2024-08-16] MEDS: 0.9% Normal Saline (1000mL) 1,000 ML 999 ML IV ×3 (19:20→21:34)
--- NOTE | 2024-08-16 20:02 | EKG12_ITS ---
Test Reason : DYSRHYTHMIA Blood Pressure : */* mmHG Vent. Rate : 59 BPM Atrial Rate : 59 BPM P-R Int : 174 ms QRS Dur : 98 ms QT Int : 436 ms P-R-T Axes : 65 -50 49 degrees QTcB Int : 431 ms Sinus bradycardia Left anterior fascicular block Nonspecific T wave abnormality Abnormal ECG Confirmed by CHEYENNE ORNELAS, AVA ([id number]), digital editor ALONA GUY ([id number]) on 08/17/2024 9:47:41 AM Referred By: TB Confirmed By: AVA QUINN MD
[2024-08-16 20:24] LABS: Absolute Lymphocyte Count 1.29 X10^3/uL (0.83-4.51); Absolute Neutrophil Count 4.5 X10^3/uL (2.0-7.7); Basophil# 0.03 X10^3/uL; Basophil% 0.4 % (0-1); Eosinophil# 0.23 X10^3/uL; Eosinophils% 3.4 % (0-5); Hematocrit 40.6 % (40-54); Lymphocyte # 1.29 X10^3/ul (0.83-4.51); Lymphocyte % 19.1 % (19-41); Mean Platelet Vol. 10.2 fl (6.2-12.0); Monocyte# 0.63 X10^3/uL; Monocyte% 9.3 % (0-10); NRBC Flagged by Analyzer 0 % (0-5); Neutrophil # 4.54 X10^3/uL (2.7-7.7); Neutrophil % 67.5 % (47-70); Platelet Count 145 K/mm3 (150-450); RBC Distribution Width CV 13.4 % (11.6-14.6); RBC Distribution Width SD 49.4 fl (35.1-43.9); Red Blood Count 4.06 M/mm3 (4.6-6.2); White Blood Count 6.7 K/mm3 (4.4-11.0)
[2024-08-16 20:35] LABS: Partial Thromboplast Time 22.8 Seconds (24.1-36.2)
[2024-08-16 20:36] LABS: Prothrombin Time (Protime)PT. 13.2 SECONDS (11.7-14.9)
--- NOTE | 2024-08-16 20:36 | EX.ED.DYSGE1 ---
HPI History of Present Illness Chief Complaint: Weakness Narrative Narrative: Patient is a 89-year-old male past medical history of dementia, hyperlipidemia, hypertension who presented to the emergency department via EMS with a chief complaint of unresponsive episode. Per daughter at bedside they had just finished dinner was sitting down doing a puzzle when he had episode of unresponsiveness. She states that he slumped over and was asleep for a short period of time states that she tried to wake him up could not get him awake. She notes that after short period time he did wake up and was more responsive for her. She states that she had to have the neighbor come help her get him up as he was very weak. Per EMS he was noted to be hypotensive and was altered. Upon arrival here to the emergency department patient states that he feels back to his baseline and family at bedside notes that he has better color as well. [facility] Medical History Dementia Hyperlipidemia Hypertension Non-smoker Frequent falls Bilateral renal cysts Hernia, hiatal Left rib fracture Prostate disorder Rotator cuff arthropathy Home Medications ?Medication ?Instructions ?Recorded ?Last Taken ?Type multivitamin 1 ea PO DAILY HEALTH MAINTENANCE 05/15/18 06/22/23 History finasteride 5 mg tablet 5 mg PO DAILY 08/27/23 08/27/23 History tamsulosin 0.4 mg capsule 0.4 mg PO DAILY 08/27/23 08/27/23 History aspirin 81 mg chewable tablet 81 mg PO BREAKFAST #0 tabs 08/30/23 Unknown Rx atorvastatin 80 mg tablet 80 mg PO QHS #30 tabs 08/30/23 Unknown Rx clopidogrel 75 mg tablet 75 mg PO DAILY #30 tabs 08/30/23 Unknown Rx metoprolol tartrate 25 mg tablet 25 mg PO BID 08/16/24 Unknown History Allergy/AdvReac Type Severity Reaction Status Date / Time No Known Allergies Allergy Verified 08/16/24 19:13 Surgical History Hx of cardiac catheterization (~08/29/23) Stented coronary artery (~08/29/23) Social History Smoking Status: Never smoker alcohol intake: current substance use type: does not use caffeine: Yes ROS ROS ED ROS Narrative Constitutional: Denies headache, lightness, dizziness, fevers, chills Eyes: Denies change in vision double vision blurry vision Cardiovascular: Denies chest pain or palpitations Respiratory: Denies coughing wheezing shortness of breath Abdomen: Denies abdominal pain nausea vomit diarrhea : Denies any urinary symptoms Neurological: Complains of unresponsive episode as noted above as well as generalized weakness Musculoskeletal: Denies back pain Skin: Denies rashes or lesions EXAM Physical Exam Narrative Exam Narrative: General: Patient was lying in bed rest comfortably not appear to be in acute distress Head: Atraumatic, normocephalic Eyes: PERRL bilateral, EOMI by, no conjunctival injection noted Neck: Soft, supple, trachea midline Cardiovascular: Patient is noted be bradycardic with a regular rhythm no murmurs gallops rubs noted Respiratory: Clear to auscultation bilaterally Abdomen: Soft, nondistended, tender to palpation Extremities: +4/5 strength noted in the bilateral upper and lower extremities, radial pulses +2/4 in the bilateral extremities, no pedal edema exam Neurological: Patient following commands knew that he was at [facility] moving all extremities NIH of 0 GCS 15 Skin: Warm, dry, intact no rashes or lesions noted Const Vital Signs: 08/16/24 19:13 08/16/24 19:20 08/16/24 19:20 Temperature 97 F L 97 F L Temperature Source Oral Oral Pulse Rate 56 L 56 L Respiratory Rate 22 H 22 H Respiratory Effort Normal Respiratory Pattern Normal Blood Pressure 78/66 L 78/66 L Blood Pressure Mean 70 70 Pulse Ox 97 97 Oxygen Delivery Method Room Air Room Air 08/16/24 19:37 08/16/24 19:57 08/16/24 20:12 Temperature Temperature Source Pulse Rate 60 63 Respiratory Rate 21 H 21 H Respiratory Effort Respiratory Pattern Blood Pressure 108/41 L 111/45 L 118/46 L Blood Pressure Mean 63 67 70 Pulse Ox 98 97 Oxygen Delivery Method 08/16/24 20:41 08/16/24 21:04 08/16/24 22:00 Temperature Temperature Source Pulse Rate 58 L 57 L Respiratory Rate 16 16 Respiratory Effort Respiratory Pattern Blood Pressure 126/53 H 139/68 H Blood Pressure Mean 77 91 Pulse Ox 96 96 95 Oxygen Delivery Method Room Air Room Air Room Air 08/16/24 23:05 08/17/24 00:00 08/17/24 00:13 Temperature 97.9 F Temperature Source Oral Pulse Rate 65 69 57 L Respiratory Rate 21 H 18 17 Respiratory Effort Respiratory Pattern Blood Pressure 145/69 H 162/81 H 152/67 H Blood Pressure Mean 94 108 95 Pulse Ox 98 98 98 Oxygen Delivery Method Room Air Room Air Room Air 08/17/24 00:25 Temperature 97.9 F Temperature Source Oral Pulse Rate 58 L Respiratory Rate 16 Respiratory Effort Respiratory Pattern Blood Pressure 149/64 H Blood Pressure Mean 92 Pulse Ox 97 Oxygen Delivery Method Room Air MDM MDM MDM Narrative Medical decision making narrative: Patient is a 89-year-old male who presented to the emerged part with a chief complaint of brief episode of unresponsiveness and generalized weakness with hypotension. On the differential diagnose includes but not limited to intracranial hemorrhage, UTI, pneumonia, ACS. Once workup is obtained reviewed he will be reevaluated. Patient was ordered 30 cc/kg bolus of IV fluids at 2004. Patient CBC reviewed showed no evidence leukocytosis white blood count normal 6.7, hemoglobin stable 13, plate count was 145. Patient INR normal at 1, PT of 13.2. Patient sodium was 140, potassium normal 4.5 , creatinine was elevated 1.43 his baseline is between 1-1.52 based on previous blood draws. Patient's lactic acid was 2.2 with a repeat pending, AST and ALT were 19 and 15 respectively. Patient's troponin was noted to be 30 with a delta troponin of 25. Patient's EKG was reviewed showed sinus bradycardia with rate of 59 beats per minutes. Patient's urinalysis showed no evidence of infection. Patient's chest x-ray reviewed by myself by radiology showed no acute cardiopulmonary processes. Patient CT head showed no acute intracranial abnormality no acute infarct intracranial hemorrhage or extra axial collection chronic microvascular ischemia and involutional changes noted. Patient was ambulated here in the emergency department tolerated well with his walker at his baseline and the patient feels back to his baseline blood pressures improved significantly after IV fluids I suspect dehydration. Patient's repeat lactic is pending therefore this will be signed out to oncoming provider pending this is normal patient will be discharged home in stable condition with instructions to follow-up with his primary care physician outpatient setting. I did discuss this plan with [facility] numbers at bedside they are agreeable to plan all question concerns answered. Lab Data Labs: Laboratory Results - last 24 hr 08/16/24 08/16/24 08/16/24 19:25 21:23 21:35 WBC 6.7 RBC 4.06 L Hgb 13.0 Hct 40.6 MCV 100.0 H MCH 32.0 MCHC 32.0 RDW Std Deviation 49.4 H RDW Coeff of Tia 13.4 Plt Count 145 L MPV 10.2 Immature Gran % (Auto) 0.300 Neut % (Auto) 67.5 Lymph % (Auto) 19.1 Centre % (Auto) 9.3 Eos % (Auto) 3.4 Baso % (Auto) 0.4 Absolute Neuts (auto) 4.5 Absolute Lymphs (auto) 1.29 Nucleated RBC % 0 PT 13.2 INR 1.0 APTT 22.8 L Sodium 140 Potassium 4.5 Chloride 104 Carbon Dioxide 26.7 Anion Gap 10 BUN 24 H Creatinine 1.43 H Estim Creat Clear Calc 39.95 L Est GFR (MDRD) Non-Af 47 L BUN/Creatinine Ratio 16.5 Glucose 200 H Lactic Acid 2.2 H* Calcium 8.8 Total Bilirubin 0.67 AST 19 ALT 15 Alkaline Phosphatase 93 Troponin T High Sens 30 H Troponin T Hi Sens 2 Hr 25 H Troponin T Hi Sens 4Hr Total Protein 5.9 Albumin 3.6 Globulin 2.3 Albumin/Globulin Ratio 1.6 Urine Color Yellow Urine Clarity Clear Urine pH 6.0 Ur Specific [place] 1.015 Urine Protein 30 H Urine Glucose (UA) Normal Urine Ketones Negative Urine Occult Blood 10 H Urine Nitrite Negative Urine Bilirubin Negative Urine Urobilinogen 1 H Ur Leukocyte Esterase 25 H Urine RBC 0-5 SEEN Urine WBC 0-5 SEEN Ur Squamous Epith Cells 0-5 SEEN Amorphous Sediment 1+ URATE Urine Bacteria 0 SEEN Urine Mucus 0 SEEN 08/16/24 23:52 WBC RBC Hgb Hct MCV MCH MCHC RDW Std Deviation RDW Coeff of Tia Plt Count MPV Immature Gran % (Auto) Neut % (Auto) Lymph % (Auto) Centre % (Auto) Eos % (Auto) Baso % (Auto) Absolute Neuts (auto) Absolute Lymphs (auto) Nucleated RBC % PT INR APTT Sodium Potassium Chloride Carbon Dioxide Anion Gap BUN Creatinine Estim Creat Clear Calc Est GFR (MDRD) Non-Af BUN/Creatinine Ratio Glucose Lactic Acid Cancelled Calcium Total Bilirubin AST ALT Alkaline Phosphatase Troponin T High Sens Troponin T Hi Sens 2 Hr Troponin T Hi Sens 4Hr Cancelled Total Protein Albumin Globulin Albumin/Globulin Ratio Urine Color Urine Clarity Urine pH Ur Specific [place] Urine Protein Urine Glucose (UA) Urine Ketones Urine Occult Blood Urine Nitrite Urine Bilirubin Urine Urobilinogen Ur Leukocyte Esterase Urine RBC Urine WBC Ur Squamous Epith Cells Amorphous Sediment Urine Bacteria Urine Mucus Radiography Diagnostic Testing: Clinical Impression(s) from Imaging Studies Brain CT 08/16/24 21:05 IMPRESSION: No acute intracranial abnormality; no acute infarct, intracranial hemorrhage or extra-axial collection. Chronic microvascular ischemia and involutional changes. Reading Location: [facility] Chest X-Ray 08/16/24 21:10 IMPRESSION: NO ACUTE FINDINGS. Reading Location: [facility] Discharge Plan Triage Chief Complaint: Weakness ED Provider: Cesario Yanez Dx/Rx/DC Orders Clinical Impression: Syncope, vasovagal, Dehydration Prescriptions: No Action multivitamin 1 EACH tablet 1 ea PO DAILY metoprolol tartrate 25 mg tablet 25 mg PO BID Patient Comments: [NO ORIGINAL SIG] tamsulosin 0.4 mg capsule 0.4 mg PO DAILY finasteride 5 mg tablet 5 mg PO DAILY aspirin 81 mg Tablet,Chewable 81 mg PO BREAKFAST Qty: 0 0RF atorvastatin 80 mg Tablet 80 mg PO QHS Qty: 30 0RF clopidogrel 75 mg Tablet 75 mg PO DAILY Qty: 30 0RF Primary Care Provider: Mayra Self NP Referrals: Mayra Self NP, [employer] [Primary Care Provider] - Activity Restrictions/Additional Instructions: Follow-up your doctor in outpatient setting return with worsening symptoms or concerns. Your blood work overall showed nothing acute your CT head was normal as well as your chest x-ray. Ensure you are hydrating with plenty of water. Print Language: Serbian Disposition Disposition: Home, Self Care
[2024-08-16 20:49] LABS: ALB/GLOB Ratio 1.6 RATIO (0.9-2.4); AST(SGOT) 19 U/L (<=37); Alanine Aminotransfer ALT/SGPT 15 U/L (<=46); Albumin, Serum 3.6 g/dL (3.4-4.8); Alkaline Phosphatase 93 U/L (40-129); Anion Gap 10 (5-15); BUN 24 mg/dL (4-19); BUN/Creat Ratio 16.5 RATIO (10-20); Calcium,Total 8.8 mg/dL (7.6-11.0); Carbon Dioxide 26.7 mmol/L (21.0-32.0); Chloride 104 mmol/L (98-108); Creatinine, Serum 1.43 mg/dL (0.70-1.20); EST Glomerular Filtration Rate 47 (>60); Estimated Creatinine Clearance 39.95 ml/min (50-250); Globulin 2.3 g/dL (2.2-4.2); Glucose 200 mg/dL (70-99); Potassium 4.5 mmol/L (3.3-5.1); Protein, Total 5.9 g/dL (5.9-8.4); Sodium Level 140 mmol/L (133-145); Total Bilirubin 0.67 mg/dL (0.00-1.30); Troponin T High Sensitivity 30 ng/L (<=22)
[2024-08-16 20:58] LABS: Lactic Acid 2.2 mmol/L (0.0-2.0)
--- NOTE | 2024-08-16 21:05 | CT_ITS ---
PROCEDURE: BRAIN/HEAD WITHOUT CONTRAST 08/16/2024 REASON FOR EXAM: AMS TECHNIQUE: Head CT without intravenous contrast. Coronal and Sagittal reconstruction series were provided. One or more dose reduction techniques were used (e.g., Automated exposure control, adjustment of the mA and/or kV according to patient size, use of iterative reconstruction technique. COMPARISON: None FINDINGS: No acute intracranial hemorrhage, mass, mass effect, midline shift or pathologic extra-axial fluid collection. Mild parenchymal atrophy with commensurate increase in CSF containing spaces. Patchy white matter hypodensities, patient demographics favor chronic microvascular ischemic changes. [id number] paranasal sinus mucosal thickening. Mastoid air cells are clear. Bilateral lens replacements. The calvarium is grossly intact. CT/Brain/Head without Contrast IMPRESSION: No acute intracranial abnormality; no acute infarct, intracranial hemorrhage or extra-axial collection. Chronic microvascular ischemia and involutional changes. Reading Location: [facility]
--- NOTE | 2024-08-16 21:10 | RAD_ITS ---
PROCEDURE: CHEST PA AND LATERAL 08/16/2024 REASON FOR EXAM: SOB TECHNIQUE: Frontal and lateral views of the chest. COMPARISON: None FINDINGS: Hardware: Partially imaged right humeral screws Heart: Mild cardiomegaly Mediastinum: The mediastinal contour is unremarkable. Lungs: Upper lobe predominant emphysema. No consolidation. No pneumothorax. No pleural effusion. Bones: Degenerative changes are identified within the thoracic spine. RAD/Chest PA and Lateral IMPRESSION: NO ACUTE FINDINGS. Reading Location: [facility]
[2024-08-16 21:59] LABS: Troponin T High Sens 2 HR 25 ng/L (<=22)
[2024-08-16 22:43] LABS: Bacteria 0 SEEN /hpf (None Seen); Mucous, Urine 0 SEEN /hpf (<or=2+)
[2024-08-16 22:45] LABS: Color, Urine Yellow (Yellow); Glucose, Dipstick Normal (Normal); Ketone-Dipstick Negative (Negative); Leukocyte Esterase-Dipstick 25 /ul (Negative); Nitrite-Dipstick Negative (Negative); Occult Blood-Urine 10 /ul (Negative); Protein-Dipstick 30 mg/dl (Negative); Specific Gravity, Urine 1.015 (1.002-1.030); Urine Bilirubin Dipstick Negative (Negative); Urine Clarity Clear (Clear); Urine Urobilinogen 1 mg/dl (Normal)
[2024-08-16 23:27] LABS: Amorphous Sediment 1+ URATE; Red Blood Cells-Urine 0-5 SEEN /hpf (0-5); Squamous Epithelial Cells - UA 0-5 SEEN /hpf (0-5); White Blood Cells 0-5 SEEN /hpf (0-5)
[2024-08-17] VITALS: BP 162/81; PULSE 69; RESP 18; O2SAT 98
[2024-08-17 00:13] VITALS: BP 152/67; PULSE 57; RESP 17; TEMP 36.6; O2SAT 98
[2024-08-17 00:14] LABS: Reflex Lactate? Y
[2024-08-17 00:25] VITALS: BP 149/64; PULSE 58; RESP 16; TEMP 36.6; O2SAT 97
[2024-08-17 01:21] VITALS: BP 156/59; PULSE 67; RESP 21; TEMP 36.6; O2SAT 97
[2024-08-17] MEDS: Lorazepam 2 MG/ML WCH Syringe 0.5 MG IV (01:28)
[2024-08-17 01:54] LABS: Lactic Acid 1.2 mmol/L (0.0-2.0)
[2024-08-17 02:00] VITALS: BP 133/50; PULSE 55; RESP 16; O2SAT 98
[2024-08-17 02:20] VITALS: BP 113/50; PULSE 58; RESP 16; TEMP 36.8; O2SAT 98
== END 2024-08-17 02:24 | disposition home or self-care (01) ==
PROVIDERS: Emergency Provider Emergency Medicine; PCP Registered Nurse; Visit Provider Emergency Medicine
DX: R53.1 Weakness (principal); F03.90 Unspecified dementia, unspecified severity, without behavioral disturbance, psychotic disturbance, mood disturbance, and anxiety; R55 Syncope and collapse; I10 Essential (primary) hypertension; E86.0 Dehydration; E78.5 Hyperlipidemia, unspecified; I95.9 Hypotension, unspecified; Z79.899 Other long term (current) drug therapy; Z79.82 Long term (current) use of aspirin; Z79.02 Long term (current) use of antithrombotics/antiplatelets; Z95.5 Presence of coronary angioplasty implant and graft
CPT/HCPCS: 70450; 71046; 80053; 81001; 83605; 84484; 85025; 85610; 85730; 87040; 87086; 87631; 93005; 96361; 96374; 99285; A4216